=== PATIENT | female | born 1975 | race African-American/Black ===

== ENCOUNTER 2016-07-18 19:25 | Emergency (ER) | payer BC ==
--- NOTE | 2016-07-18 22:18 | ED NURSING NOTES ---
Clinical Report - Nurses [facility] [address] [place] [address] 07/18/2016 19:25 Patient: RIKY SCHMITT TRIAGE Triage time 19:57 Apr 2016. Acuity: LEVEL 2. Chief Complaint: ABDOMINAL PAIN, NAUSEA and VOMITING. Alert. MERVIN COMA SCORE: Mervin Coma Scale: 15- eyes open spontaneously (4); best verbal response- oriented x 4 (5); best motor response- obeys commands (6). --20:08 Jamir Moore R.N. 19:55 07/18/16. BP: 166/77. HR: 66. RR: 18. O2 saturation: 99% on room air. Temp: 98.5 F (oral). Pain level now: 8/10. Additional comments: abdominal pain. --20:08 Jamir Moore R.N. Weight: 68.4 kg stated. Height/Length: 65 inches Per Patient. BMI: 25.1. --20:03 Jamir Moore R.N. Medication/allergy information source: the patient. --20:08 Jamir Moore R.N. Allergies ASA. Codeine. EES. Ibuprofen. PCN. Sulfa Antibiotics. Vicodin. --02:15 Jc Reynolds R.N. History ( Abdominal Pain associated with N/V (12 times this this morning). She also states the, "the room is spinning."). This started today. Onset. (about 12 hours ago). She has had nausea, vomiting and abdominal pain. 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 PAST MEDICAL HX: Immunizations: status is unknown. Last normal menstrual period was 3 weeks ago. Denies current . SOCIAL HX: Light tobacco smoker (cigarette)- less than 1/2 a pack per day. No alcohol use or drug use. No recent travel. No infectious disease exposure. ABUSE ASSESSMENT: No report of abuse. FALL RISK ASSESSMENT: Fall risk assessment completed. No fall risk identified. NUTRITIONAL RISK ASSESSMENT: The nutritional risk assessment revealed no deficiencies. FUNCTIONAL ASSESSMENT: Functional assessment: no impairments noted. LEARNING NEEDS ASSESSMENT: The learning needs assessment revealed no barriers. SKIN INTEGRITY ASSESSMENT: Skin integrity risk assessment completed. No skin integrity risk identified. --20:08 Jamir Moore R.N. PROBLEMS: Vomiting. Murmur . SICKLE CELL TRAIT. Gastroparesis. Diabetes Mellitus Type 2. --20:04 Jamir Moore R.N. ADDITIONAL SURGERIES: Endoscopy. Knee Surgery. Tonsillectomy. --20:04 Jamir Moore R.N. Interventions ID band on patient. To room. --20:08 Jamir Moore R.N. PHYSICAL ASSESSMENT Ambulatory to room. GENERAL / NEURO / PSYCH: Alert. Oriented X 4. Appears in pain. HEENT: Mucous membranes are pink. RESPIRATORY: Respirations not labored. CVS: Cardiac rhythm: (RRR). GI / : Abdomen soft. Bowel sounds within normal limits. SKIN: Skin is warm and dry. --20:11 Jamir Moore R.N. NURSING PROGRESS NOTES 20:00 07/18/2016 Site #1 started via IV in the left antecubital space with an 20g angiocath, with aseptic technique and good blood return; one attempt. Blood drawn: rainbow set. Saline lock flushed with 10 mL saline. --20:10 Jamir Moore R.N. Reassurance given. Patient identifiers checked. Call light placed in reach. Side rails up x 1. Bed placed in lowest position. Brakes of bed on. Patient ready for evaluation- chart flagged and ED physician notified. --20:12 Jamir Moore R.N. 19:55. Patient ID band checked for patient name, birthdate and medical record number: patient confirmed. Instructions provided to collect clean catch urine and patient verbalized understanding. Clean catch urine collected with return of yellow-colored clear urine; odor is normal; sample sent to lab for urinalysis and culture. Specimen labeled in the presence of the patient. --20:13 Jamir Moore R.N. 20:15 07/18/2016 Started bag #1 1000 mL IV Fluids IV NS (Saline); at 1000 mL/hr over 60 minute(s) via site #1 via IV pump. Allergies verified and confirmed 5 rights. IV patency established. IV site checked: no pain, redness, or swelling. IV flushed thoroughly pre- and post-medication administration. --20:21 Jamir Moore R.N. 20:17 07/18/2016 Zofran (Ondansetron HCl) IVP 4 mg given over 2 minute(s) via site #1. Allergies verified and confirmed 5 rights. IV patency established. IV site checked: no pain, redness, or swelling. IV flushed thoroughly pre- and post-medication administration. --20:23 Jamir Oneal R.N. 20:19 07/18/2016 Toradol IVP 30 mg given over 2 minute(s) via site #1. Allergies verified and confirmed 5 rights. IV patency established. IV site checked: no pain, redness, or swelling. IV flushed thoroughly pre- and post-medication administration. --20:24 Jamir Oneal R.N. 20:21 07/18/2016 Ativan (LORazepam) IVP 2 mg given over 2 minute(s) via site #1. Allergies verified, confirmed 5 rights and sedative warning given to the patient and patient's sterile supervisor. IV patency established. IV site checked: no pain, redness, or swelling. IV flushed thoroughly pre- and post-medication administration. --20:24 Jamir Oneal R.N. 20:22. Pulse oximeter placed on patient. --20:24 Jamir Oneal R.N. 21:16 07/18/16. BP: 111/60. HR: 61. RR: 16. O2 saturation: 95% on room air. Pain level now: 0/10. Additional comments: sleeping. --21:17 Jamir Moore R.N. 21:18 07/18/2016 IV Fluids IV NS Discontinued: bag #1 infused. Total amount infused: 1000 mL. IV patency established. IV site checked: no pain, redness, or swelling. IV flushed thoroughly. --21:18 Jamir Moore R.N. 21:40 Pt resting quietly, sterile supervisor at bedside. --22:12 Ani Baker R.N. DISPOSITION / DISCHARGE 23:04 07/18/16. Departure time: 2303Jul 18 2016. Condition at departure: stable. The goals identified in the patient's plan of care were met. No learning barriers present. Discharge instructions provided and reviewed with the patient. Reviewed medication(s) side effects, precautions, dosing and course information. Prescription(s) given to the patient. Patient verbalized understanding. Written instructions provided in Yakut. ( Riky verbalizes understanding of all d/c instructions including need to f/u with PCP. She has no questions and voices no concerns at this time.). The patient was discharged by the physician. She was discharged home and accompanied by family. She left the Emergency Department ambulatory and via private vehicle. Family member driving. MERVIN COMA SCORE: [place] Coma Scale: 15- eyes open spontaneously (4); best verbal response- oriented x 4 (5); best motor response- obeys commands (6). --02:15 Jc Reynolds R.N. 02:13 07/19/16. BP: 101/52 (regular adult cuff) taken on the right arm, via an automated monitor, while lying. HR: 74 (normal rate). RR: 16 (regular, unlabored and normal). O2 saturation: 95% on room air. Temp: 98.9 F (oral). Pain level now: 09/12. --02:15 Jc Reynolds R.N. Locked/Released at 07/19/2016 2:15 by Jc Reynolds R.N.
--- NOTE | 2016-07-18 22:18 | ED ORDER SUMMARY ---
..... Patient: RIKY SCHMITT OrderSheet [facility] VisitID: [id number] [address] [place] [address] 40y, F Registration Date/Time: 07/18/2016 ORDER SHEET Weight: 68.4 kg (stated) Allergies: ASA, Codeine, EES, Ibuprofen, PCN, Sulfa Antibiotics, Vicodin GENERAL ORDERS: CBC w Diff Urgent (20:07/18/2016 HBivens A.R.N.P.) (20:13 JRomanelli R.N.) CMP Urgent (20:07/18/2016 HBivens A.R.N.P.) (20:13 JRomanelli R.N.) UA-Culture if indicated Urgent (20:07/18/2016 HBivens A.R.N.P.) (20:13 JRomanelli R.N.) Amylase Urgent (20:07/18/2016 HBivens A.R.N.P.) (20:13 JRomanelli R.N.) Lipase Urgent (20:07/18/2016 HBivens A.R.N.P.) (20:13 JRomanelli R.N.) MEDICATION ORDERS: IV FLUIDS: IV Saline Lock (20:09 07/18/2016 JRomanelli R.N. verbal order read back to HBivens A.R.N.P.) (20:10 JRomanelli R.N.) IV NS : initial bolus 1000 mL (1000 mL/hr), then none - (NOW) (20:11 07/18/2016 HBivens A.R.N.P.) (Ack 20:15 JQuivey R.N.) (20:21 JRomanelli R.N.) Toradol IV 30 mg (NOW) (20:07/18/2016 HBivens A.R.N.P.) (Ack 20:15 JQuivey R.N.) (20:24 JQuivey R.N.) Zofran IV 4 mg (NOW) (20:07/18/2016 HBivens A.R.N.P.) (Ack 20:15 JQuivey R.N.) (20:23 JQuivey R.N.) Ativan IV 2 mg (HIGH ALERT MEDICATION, NOW) (20:11 07/18/2016 HBivens A.R.N.P.) (Ack 20:15 JQuivey R.N.) (20:24 JQuivey R.N.) ORDER SHEET NOTES: [Electronically signed by Clare HardingR.N.PRaulito (23:28 07/18/2016)] [Electronically signed by Jc Reynolds R.N. (02:15 07/19/2016)] [Electronically locked/signed by Jc Reynolds R.N. (02:07/19/2016)]
--- NOTE | 2016-07-18 22:18 | ED ORDER SUMMARY ---
..... Patient: RIKY SCHMITT OrderSheet [facility] VisitID: [id number] [address] [place] [address] 40y, F Registration Date/Time: 07/18/2016 ORDER SHEET Weight: 68.4 kg (stated) Allergies: ASA, Codeine, EES, Ibuprofen, PCN, Sulfa Antibiotics, Vicodin GENERAL ORDERS: CBC w Diff Urgent (20:07/18/2016 HBivens A.R.N.P.) (20:13 JRomanelli R.N.) CMP Urgent (20:07/18/2016 HBivens A.R.N.P.) (20:13 JRomanelli R.N.) UA-Culture if indicated Urgent (20:07/18/2016 HBivens A.R.N.P.) (20:13 JRomanelli R.N.) Amylase Urgent (20:07/18/2016 HBivens A.R.N.P.) (20:13 JRomanelli R.N.) Lipase Urgent (20:07/18/2016 HBivens A.R.N.P.) (20:13 JRomanelli R.N.) MEDICATION ORDERS: IV FLUIDS: IV Saline Lock (20:09 07/18/2016 JRomanelli R.N. verbal order read back to HBivens A.R.N.P.) (20:10 JRomanelli R.N.) IV NS : initial bolus 1000 mL (1000 mL/hr), then none - (NOW) (20:11 07/18/2016 HBivens A.R.N.P.) (Ack 20:15 JQuivey R.N.) (20:21 JRomanelli R.N.) Toradol IV 30 mg (NOW) (20:07/18/2016 HBivens A.R.N.P.) (Ack 20:15 JQuivey R.N.) (20:24 JQuivey R.N.) Zofran IV 4 mg (NOW) (20:07/18/2016 HBivens A.R.N.P.) (Ack 20:15 JQuivey R.N.) (20:23 JQuivey R.N.) Ativan IV 2 mg (HIGH ALERT MEDICATION, NOW) (20:11 07/18/2016 HBivens A.R.N.P.) (Ack 20:15 JQuivey R.N.) (20:24 JQuivey R.N.) ORDER SHEET NOTES: [Electronically signed by Clare HardingR.N.PRaulito (23:28 07/18/2016)] [Electronically signed by Jc Reynolds R.N. (02:15 07/19/2016)] [Electronically locked/signed by Jc Reynolds R.N. (02:07/19/2016)]
--- NOTE | 2016-07-18 22:18 | ED NURSING NOTES ---
Clinical Report - Nurses [facility] [address] [place] [address] 07/18/2016 19:25 Patient: RIKY SCHMITT TRIAGE Triage time 19:57 Apr 2016. Acuity: LEVEL 2. Chief Complaint: ABDOMINAL PAIN, NAUSEA and VOMITING. Alert. MERVIN COMA SCORE: Mervin Coma Scale: 15- eyes open spontaneously (4); best verbal response- oriented x 4 (5); best motor response- obeys commands (6). --20:08 Jamir Moore R.N. 19:55 07/18/16. BP: 166/77. HR: 66. RR: 18. O2 saturation: 99% on room air. Temp: 98.5 F (oral). Pain level now: 8/10. Additional comments: abdominal pain. --20:08 Jamir Moore R.N. Weight: 68.4 kg stated. Height/Length: 65 inches Per Patient. BMI: 25.1. --20:03 Jamir Moore R.N. Medication/allergy information source: the patient. --20:08 Jamir Moore R.N. Allergies ASA. Codeine. EES. Ibuprofen. PCN. Sulfa Antibiotics. Vicodin. --02:15 Jc Reynolds R.N. History ( Abdominal Pain associated with N/V (12 times this this morning). She also states the, "the room is spinning."). This started today. Onset. (about 12 hours ago). She has had nausea, vomiting and abdominal pain. 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 PAST MEDICAL HX: Immunizations: status is unknown. Last normal menstrual period was 3 weeks ago. Denies current . SOCIAL HX: Light tobacco smoker (cigarette)- less than 1/2 a pack per day. No alcohol use or drug use. No recent travel. No infectious disease exposure. ABUSE ASSESSMENT: No report of abuse. FALL RISK ASSESSMENT: Fall risk assessment completed. No fall risk identified. NUTRITIONAL RISK ASSESSMENT: The nutritional risk assessment revealed no deficiencies. FUNCTIONAL ASSESSMENT: Functional assessment: no impairments noted. LEARNING NEEDS ASSESSMENT: The learning needs assessment revealed no barriers. SKIN INTEGRITY ASSESSMENT: Skin integrity risk assessment completed. No skin integrity risk identified. --20:08 Jamir Moore R.N. PROBLEMS: Vomiting. Murmur . SICKLE CELL TRAIT. Gastroparesis. Diabetes Mellitus Type 2. --20:04 Jamir Moore R.N. ADDITIONAL SURGERIES: Endoscopy. Knee Surgery. Tonsillectomy. --20:04 Jamir Moore R.N. Interventions ID band on patient. To room. --20:08 Jamir Moore R.N. PHYSICAL ASSESSMENT Ambulatory to room. GENERAL / NEURO / PSYCH: Alert. Oriented X 4. Appears in pain. HEENT: Mucous membranes are pink. RESPIRATORY: Respirations not labored. CVS: Cardiac rhythm: (RRR). GI / : Abdomen soft. Bowel sounds within normal limits. SKIN: Skin is warm and dry. --20:11 Jamir Moore R.N. NURSING PROGRESS NOTES 20:00 07/18/2016 Site #1 started via IV in the left antecubital space with an 20g angiocath, with aseptic technique and good blood return; one attempt. Blood drawn: rainbow set. Saline lock flushed with 10 mL saline. --20:10 Jamir Moore R.N. Reassurance given. Patient identifiers checked. Call light placed in reach. Side rails up x 1. Bed placed in lowest position. Brakes of bed on. Patient ready for evaluation- chart flagged and ED physician notified. --20:12 Jamir Moore R.N. 19:55. Patient ID band checked for patient name, birthdate and medical record number: patient confirmed. Instructions provided to collect clean catch urine and patient verbalized understanding. Clean catch urine collected with return of yellow-colored clear urine; odor is normal; sample sent to lab for urinalysis and culture. Specimen labeled in the presence of the patient. --20:13 Jamir Moore R.N. 20:15 07/18/2016 Started bag #1 1000 mL IV Fluids IV NS (Saline); at 1000 mL/hr over 60 minute(s) via site #1 via IV pump. Allergies verified and confirmed 5 rights. IV patency established. IV site checked: no pain, redness, or swelling. IV flushed thoroughly pre- and post-medication administration. --20:21 Jamir Moore R.N. 20:17 07/18/2016 Zofran (Ondansetron HCl) IVP 4 mg given over 2 minute(s) via site #1. Allergies verified and confirmed 5 rights. IV patency established. IV site checked: no pain, redness, or swelling. IV flushed thoroughly pre- and post-medication administration. --20:23 Jamir Oneal R.N. 20:19 07/18/2016 Toradol IVP 30 mg given over 2 minute(s) via site #1. Allergies verified and confirmed 5 rights. IV patency established. IV site checked: no pain, redness, or swelling. IV flushed thoroughly pre- and post-medication administration. --20:24 Jamir Oneal R.N. 20:21 07/18/2016 Ativan (LORazepam) IVP 2 mg given over 2 minute(s) via site #1. Allergies verified, confirmed 5 rights and sedative warning given to the patient and patient's carpenter packing. IV patency established. IV site checked: no pain, redness, or swelling. IV flushed thoroughly pre- and post-medication administration. --20:24 Jamir Oneal R.N. 20:22. Pulse oximeter placed on patient. --20:24 Jamir Oneal R.N. 21:16 07/18/16. BP: 111/60. HR: 61. RR: 16. O2 saturation: 95% on room air. Pain level now: 0/10. Additional comments: sleeping. --21:17 Jamir Moore R.N. 21:18 07/18/2016 IV Fluids IV NS Discontinued: bag #1 infused. Total amount infused: 1000 mL. IV patency established. IV site checked: no pain, redness, or swelling. IV flushed thoroughly. --21:18 Jamir Moore R.N. 21:40 Pt resting quietly, carpenter packing at bedside. --22:12 Ani Baker R.N. DISPOSITION / DISCHARGE 23:04 07/18/16. Departure time: 2303Jul 18 2016. Condition at departure: stable. The goals identified in the patient's plan of care were met. No learning barriers present. Discharge instructions provided and reviewed with the patient. Reviewed medication(s) side effects, precautions, dosing and course information. Prescription(s) given to the patient. Patient verbalized understanding. Written instructions provided in Thai. ( Riky verbalizes understanding of all d/c instructions including need to f/u with PCP. She has no questions and voices no concerns at this time.). The patient was discharged by the physician. She was discharged home and accompanied by family. She left the Emergency Department ambulatory and via private vehicle. Family member driving. MERVIN COMA SCORE: [place] Coma Scale: 15- eyes open spontaneously (4); best verbal response- oriented x 4 (5); best motor response- obeys commands (6). --02:15 Jc Reynolds R.N. 02:13 07/19/16. BP: 101/52 (regular adult cuff) taken on the right arm, via an automated monitor, while lying. HR: 74 (normal rate). RR: 16 (regular, unlabored and normal). O2 saturation: 95% on room air. Temp: 98.9 F (oral). Pain level now: 09/12. --02:15 Jc Reynolds R.N. Locked/Released at 07/19/2016 2:15 by Jc Reynolds R.N.
--- NOTE | 2016-07-18 22:18 | ED CLINICAL REPORT ---
Clinical Report - Physicians/Mid Levels [facility] [address], [place] [address] 07/18/2016 19:25 Patient: RIKY SCHMITT Time Seen: 19:48; initial patient contact, initial documentation, patient care assumed. Arrived- By private vehicle. Historian- patient. HISTORY OF PRESENT ILLNESS Chief Complaint: ABDOMINAL PAIN. At its maximum, severity described as moderate. When seen in the E.D., severity described as moderate. Modifying factors. Not worsened by anything. Not relieved by anything. It is described as "pain" and diffuse. No radiation. This started today and is still present. It was abrupt in onset. The patient has had nausea. No loss of appetite or diarrhea. She has had vomiting. The vomiting has occurred numerous times and has been bilious. No feculent emesis, blood-tinged emesis, coffee-grounds emesis, frankly bloody emesis or unusually dark emesis. No additional abdominal pain. No recent travel. Similar symptoms previously: Chronically, as bad. ( feel exactly the same as past flare ups). Recent medical care: Not recently seen/assessed. REVIEW OF SYSTEMS Last normal menstrual period- about 3 weeks ago. No constipation, black stools, hematemesis, difficulty with urination or pain with urination. No urinary frequency, bloody stools, fever, chest pain or difficulty breathing. Denies current . All systems otherwise negative, except as recorded above. PAST HISTORY See nurses notes. PROBLEMS: Vomiting. Murmur . SICKLE CELL TRAIT. Gastroparesis. Diabetes Mellitus Type 2. --20:04 Jamir Moore R.N. ADDITIONAL SURGERIES: Endoscopy. Knee Surgery. Tonsillectomy. --20:04 Jamir Moore R.N. SOCIAL HISTORY Light tobacco smoker. No alcohol use or drug use. No recent travel. Is a local resident. She lives with spouse. FAMILY HISTORY Negative. ADDITIONAL NOTES The nursing notes have been reviewed with agreement regarding the chief complaint, HPI, ROS, PMH and patient medications and allergies. PHYSICAL EXAM Vital Signs: 07/18/2016 19:55 BP: 166/77. HR: 66. RR: 18. O2 saturation: 99%. Temp: 98.5 F. Pain level now: 8/10. Have been reviewed as normal and appear to be correct. Appearance: Alert. Oriented X3. No acute distress. Anxious. Eyes: Pupils equal, round and reactive to light. Eyes normal inspection. Neck: Normal inspection. Neck supple. CVS: Normal heart rate and rhythm. Heart sounds normal. Pulses normal. Respiratory: No respiratory distress. Breath sounds normal. Chest nontender. Abdomen: Soft. Mild tenderness diffusely. No guarding, rebound tenderness or Loja's, obturator or psoas sign present. Bowel sounds normal. No organomegaly. No mass. Tenderness present. Back: Normal inspection. Skin: Skin warm and dry. Normal skin color. No rash. Normal skin turgor. Extremities: Extremities exhibit normal ROM. No lower extremity edema. Neuro: Oriented X 3. No motor deficit. No sensory deficit. LABS, X-RAYS, AND EKG Laboratory Tests: UA-Culture if indicated: (TARYN: 07/18/2016 19:50) ( [facility] 07/18/2016 21:26) Final results Test Result Flag Units (Reference) URINE COLOR YELLOW URINE APPEARANCE CLEAR URINE GLUCOSE NEGATIVE (NEGATIVE) URINE BILIRUBIN ICTOTEST NEGATIVE (NEGATIVE) URINE KETONE 3+ (NEGATIVE) URINE SPECIFIC GRAVITY 1.020 (1.010-1.030) URINE PH 7.5 (5.0-8.0) URINE PROTEIN NEGATIVE (NEGATIVE) URINE UROBILINOGEN 0.2 EU/dL (0.2-1.0) URINE NITRITE NEGATIVE (NEGATIVE) URINE BLOOD NEGATIVE (NEGATIVE) URINE LEUK ESTERASE NEGATIVE (NEGATIVE) URINE RBC NONE SEEN rbc/hpf (0-1) URINE WBC RARE wbc/hpf (0-1) URINE EPITHELIAL CELLS 0-1 EPI/hpf (0-5) URINE BACTERIA TRACE (<1+) (NONE SEEN) URINE COMMENT CULT NOT INDICATED 1+ AMORPHOUSURINE CULTURES ARE SET-UP BASED ON THE FOLLOWING CRITERIA:POSITIVE NITRITEPOSITIVE LEUKOCYTE ESTERASEGREATER THAN 10 WHITE BLOOD CELLSMODERATE (2+) OR GREATER BACTERIA CBC w Diff: (TARYN: 07/18/2016 20:05) ( [facility] 07/18/2016 20:45) Final results Test Result Flag Units (Reference) WHITE BLOOD COUNT 9.1 K/uL (4.5-11.5) RED BLOOD COUNT 4.83 M/uL (4.00-5.20) HEMOGLOBIN 12.7 gm/dL (12.0-16.0) HEMATOCRIT 39.1 % (36.0-46.0) MEAN CELL VOLUME 81 fL (80-100) MEAN CORPUSCULAR HGB 26 pg (26-34) MEAN CORPUSCULAR HGB CONC 33 g/dL (31-37) RED CELL DISTRIBUTION WIDTH 18.1 H % (11.6-14.8) PLATELET COUNT 355 K/uL (150-400) NEUTROPHIL % 87.6 H % (50-75) LYMPH % 10.4 L % (25-40) MONO % 1.9 L % (3-14) EOSINOPHIL % 0 % (0-4) BASOPHIL % 0.1 % (0-2) CMP: (TARYN: 07/18/2016 20:05) ( [facility] 07/18/2016 21:43) Final results Test Result Flag Units (Reference) GLUCOSE 140 H mg/dL (70-110) BUN 6 L mg/dL (7-18) CREATININE 0.7 mg/dL (0.6-1.3) Estimated GFR >60 mL/min Estimated GFR- >60 mL/min Note: Persistent reduction over 3 months in eGFR<60 mL/min/1.73 m2 defines CKD. Patients with eGFR values>=60 mL/min/1.73 m2 may also have CKD if evidence ofpersistent proteinuria. Additional information may be foundat www.kidney.org. SODIUM 141 mmol/L (136-145) POTASSIUM 3.7 mmol/L (3.5-5.1) CHLORIDE 106 mmol/L (98-107) CARBON DIOXIDE 24 mmol/L (21-32) CALCIUM 8.4 L mg/dL (8.5-10.1) TOTAL PROTEIN 7.4 g/dL (6.4-8.2) ALBUMIN 3.5 g/dL (3.3-5.0) BILIRUBIN, TOTAL 0.3 mg/dL (0.0-1.0) ALKALINE PHOSPHATASE 55 U/L (46-116) AST (SGOT) 10 L U/L (15-37) ALT (SGPT) 18 U/L (12-78) LIPASE 41 L U/L (73-393) AMYLASE 28 U/L (25-115) . PROGRESS AND PROCEDURES Course of Care: 20:06 07/18/16. pt has kate with recommendations to refer pt back to pcp for chronic conditions, and limit imaging such as ct, #7 er visits, see report for full details 2212. pt asleep resting quietly, nad, resp even and unlabored, spoke with spouse re dc plan. 07/18/2016 21:16 BP: 111/60. HR: 61. RR: 16. O2 saturation: 95%. Pain level now: 0/10. Vital Signs: have been reviewed as normal and appear to be correct. Patient and spouse counseled in person regarding the patient's stable condition, test results and diagnosis. 22:12. Differential Diagnosis: I considered gastritis, peptic ulcer disease, ischemia, gastroesophageal reflux disease, gastroparesis, Crohn's disease, ulcerative colitis, small bowel obstruction, gastric outlet obstruction, colonic obstruction, colon cancer, gastroenteritis, cholecystitis, pancreatitis, viral syndrome, enterocolitis, urinary tract infection, hepatitis, sepsis, drugs and as a possible cause of vomiting in this patient. This is a partial list of diagnoses considered. Above considerations are based on history, physical exam, reassessment and laboratory data. Differential diagnosis was discussed with patient. Disposition: Discharged home in good and improved condition (22:17). Condition: good and stable. CLINICAL IMPRESSION Intractable and bilious vomiting with nausea and dehydration. No volume depletion. INSTRUCTIONS Take clear liquids only (frequent sips) for the next 24 hours until better. May continue medications with sips only. Advance diet as tolerated. Warnings: GENERAL WARNINGS: Return or contact your physician immediately if your condition worsens or changes unexpectedly, if not improving as expected, or if other problems arise. SPECIFICALLY, return if you develop pain in the abdomen, fever, the inability to keep fluids down, blood in vomitus, blood in diarrhea, fainting or lightheadedness. Prescription Medications: Zofran 4 mg: Take 1 orally every six hours as needed for nausea/vomiting. Dispense ten (10). No refills. Substitution is permissible. Pepcid 20 mg tablets: Take 1 orally every 12 hours. Dispense thirty (30). No refills. Substitution is permissible. Follow-up: Follow up with your doctor in two days even if well. Call for an appointment. Summary of care provided to patient and family. Understanding of the discharge instructions verbalized by patient. (Electronically signed by Clare Harding A.R.N.P. 07/18/2016 23:28)
--- NOTE | 2016-07-19 02:16 | ED MED RECONCILIATION SUMMARY ---
Patient: RIKY SCHMITT Medication Reconciliation Report Formerly [facility] VisitID: [id number] [place] [address] 40y, F Registration Date/Time: 07/18/2016 Weight: 68.4 kg Height/Length: 65 in. BMI: 25.1 ALLERGIES: ASA, Codeine, EES, Ibuprofen, PCN, Sulfa Antibiotics, Vicodin The patient's Home Medications are listed below: Not obtained. The source(s) of the original Home Medication information: patient The following Medications were given to the patient in the Emergency Department: IV NS IV Fluids bolus 0, then 1000 mL/hr, administered: 07/18/2016 8:15:00 PM Zofran [IVP] IVP 4 mg, administered: 07/18/2016 8:17:00 PM Toradol [IVP] IVP 30 mg, administered: 07/18/2016 8:19:00 PM Ativan [IVP] IVP 2 mg, administered: 07/18/2016 8:21:00 PM The following Medications were prescribed to the patient: Zofran 4 mg: Take 1 orally every six hours as needed for nausea/vomiting. Dispense ten (10). No refills. Substitution is permissible. -- Clare Harding, A.R.N.P. Pepcid 20 mg tablets: Take 1 orally every 12 hours. Dispense thirty (30). No refills. Substitution is permissible. -- Clare Harding A.R.N.P.
--- NOTE | 2016-07-19 02:16 | ED DISCHARGE INSTRUCTIONS ---
Patient: RIKY SCHMITT General Instructions [facility] VisitID: [id number] [place] [address] 40y, F Registration Date/Time: 07/18/2016 Intractable and bilious vomiting with nausea and dehydration. No volume depletion. INSTRUCTIONS Take clear liquids only (frequent sips) for the next 24 hours until better. May continue medications with sips only. Advance diet as tolerated. Warnings: GENERAL WARNINGS: Return or contact your physician immediately if your condition worsens or changes unexpectedly, if not improving as expected, or if other problems arise. SPECIFICALLY, return if you develop pain in the abdomen, fever, the inability to keep fluids down, blood in vomitus, blood in diarrhea, fainting or lightheadedness. Prescription Medications: Zofran 4 mg: Take 1 orally every six hours as needed for nausea/vomiting. Dispense ten (10). No refills. Substitution is permissible. Pepcid 20 mg tablets: Take 1 orally every 12 hours. Dispense thirty (30). No refills. Substitution is permissible. Follow-up: Follow up with your doctor in two days even if well. Call for an appointment. Summary of care provided to patient and family. Understanding of the discharge instructions verbalized by patient. ADDITIONAL INFORMATION Vomiting [6Yr-Adult] Vomiting is a common symptom that may be due to different causes. These include gastroenteritis ("stomach flu"), food poisoning and gastritis. There are other more serious causes of vomiting which may be hard to diagnose early in the illness. Therefore, it is important to watch for the warning signs listed below. The main danger from repeated vomiting is dehydration. This is due to excess loss of water and minerals from the body. When this occurs, body fluids must be replaced. Home Care: If symptoms are severe, rest at home for the next 24 hours. You may use acetaminophen (Tylenol) or ibuprofen (Motrin, Advil) to control fever, unless another medicine was prescribed. [NOTE : If you have chronic liver or kidney disease or ever had a stomach ulcer or GI bleeding, talk with your doctor before using these medicines.] (Aspirin should never be used in anyone under 18 years of age who is ill with a fever. It may cause severe liver damage.) Avoid tobacco and alcohol use, which may worsen your symptoms. If medicines for vomiting were prescribed, take as directed. Once vomiting stops, then follow these guidelines: During The First 12-24 Hours follow the diet below: FRUIT JUICES: Apple, grape juice, clear fruit drinks, and electrolyte replacement drinks. BEVERAGES: Soft drinks without caffeine; mineral water (plain or flavored), decaffeinated tea and coffee. SOUPS: Clear broth, consomm and bouillon DESSERTS: Plain gelatin, popsicles and fruit juice bars. As you feel better, you may add 6-8 ounces of yogurt per day. During The Next 24 Hours you may add the following to the above: Hot cereal, plain toast, bread, rolls, crackers Plain noodles, rice, mashed potatoes, chicken noodle or rice soup Unsweetened canned fruit (avoid pineapple), bananas Limit caffeine and chocolate. No spices or seasonings except salt. During The Next 24 Hours Gradually resume a normal diet, as you feel better and your symptoms lessen. Follow Up with your doctor as advised if you are not improving over the next 2-3 days. Get Prompt Medical Attention if any of the following occur: Constant right-sided lower abdominal pain or increasing general abdominal pain Continued vomiting (unable to keep liquids down) for 24 hours Frequent diarrhea (more than 5 times a day); blood (red or black color) or mucus in diarrhea Reduced urine output or extreme thirst Weakness, dizziness or fainting Unusually drowsy or confused Fever of 100.4F (38C) oral or higher, not better with fever medication Yellow color of the eyes or skin Clear Liquid Diet Clear liquids are any liquid that you can see through as well as those that are very easy to digest. This is used while the body is recovering from irritation or infection of the stomach or intestinal tract. It may also be used before special procedures or surgery. This diet is to be used no more than three days. You may include the following items. Adults Adults should drink a total of 23 quarts of liquid per day. It may be easier to drink small frequent servings rather than a few large ones. Liquids can include: Fruit juices.Strained orange juice or lemonade (no pulp), apple, grape and cranberry juice, clear fruit drinks, sports drinks Beverages.Sport drinks, sodas, mineral water (plain or flavored), tea, black coffee, liquid gelatin (add twice the recommended amount of water) Soups.Clear broth, consomm, bouillon Desserts.Plain gelatin, popsicles, fruit juice bars Children Over 2 years old The following liquids are acceptable for children over age 2: Fruit juices.Strained orange juice or lemonade (no pulp), apple, grape and cranberry juice, clear fruit drinks Beverages. Sports drinks, sodas, mineral water (plain or flavored), tea, liquid gelatin (add twice the recommended amount of water) Soups. Clear broth, consomm, bouillon Desserts. Plain gelatin, popsicles, fruit juice bars Children under 2 years old Oral rehydration fluids such are available at drug stores and most grocery stores without a prescription. Ondansetron Oral disintegrating tablet What is this medicine? ONDANSETRON (on SHELIA se romain) is used to treat nausea and vomiting caused by chemotherapy. It is also used to prevent or treat nausea and vomiting after surgery. How should I use this medicine? These tablets are made to dissolve in the mouth. Do not try to push the tablet through the foil backing. With dry hands, peel away the foil backing and gently remove the tablet. Place the tablet in the mouth and allow it to dissolve, then swallow. While you may take these tablets with water, it is not necessary to do so. Talk to your senior construction manager regarding the use of this medicine in children. Special care may be needed. What side effects may I notice from receiving this medicine? Side effects that you should report to your doctor or health career center director as soon as possible: allergic reactions like skin rash, itching or hives, swelling of the face, lips, or tongue breathing problems dizziness fast or irregular heartbeat feeling faint or lightheaded, falls fever and chills swelling of the hands and feet tightness in the chest Side effects that usually do not require medical attention (report to your doctor or health career center director if they continue or are bothersome): constipation or diarrhea headache What may interact with this medicine? Do not take this medicine with any of the following medications: -apomorphine -cisapride -dofetilide -dronedarone -pimozide -thioridazine -ziprasidone This medicine may also interact with the following medications: -carbamazepine -phenytoin -rifampicin -tramadol -other medicines that prolong the QT interval (cause an abnormal heart rhythm) What if I miss a dose? If you miss a dose, take it as soon as you can. If it is almost time for your next dose, take only that dose. Do not take double or extra doses. Where should I keep my medicine? Keep out of the reach of children. Store between 2 and 30 degrees C (36 and 86 degrees F). Throw away any unused medicine after the expiration date. What should I tell my health care provider before I take this medicine? They need to know if you have any of these conditions: heart disease history of irregular heartbeat liver disease low levels of magnesium or potassium in the blood an unusual or allergic reaction to ondansetron, granisetron, other medicines, foods, dyes, or preservatives or trying to get breast-feeding What should I watch for while using this medicine? Check with your doctor or health career center director as soon as you can if you have any sign of an allergic reaction. Famotidine Oral tablet What is this medicine? FAMOTIDINE (fa JESÚS ti derrick) is a type of antihistamine that blocks the release of stomach acid. It is used to treat stomach or intestinal ulcers. It can also relieve heartburn from acid reflux. How should I use this medicine? Take this medicine by mouth with a glass of water. Follow the directions on the prescription label. If you only take this medicine once a day, take it at bedtime. Take your doses at regular intervals. Do not take your medicine more often than directed. Talk to your senior construction manager regarding the use of this medicine in children. Special care may be needed. What side effects may I notice from receiving this medicine? Side effects that you should report to your doctor or health career center director as soon as possible: agitation, nervousness confusion hallucinations skin rash, itching Side effects that usually do not require medical attention (report to your doctor or health career center director if they continue or are bothersome): constipation diarrhea dizziness headache What may interact with this medicine? delavirdine itraconazole ketoconazole What if I miss a dose? If you miss a dose, take it as soon as you can. If it is almost time for your next dose, take only that dose. Do not take double or extra doses. Where should I keep my medicine? Keep out of the reach of children. Store at room temperature between 15 and 30 degrees C (59 and 86 degrees F). Do not freeze. Throw away any unused medicine after the expiration date. What should I tell my health care provider before I take this medicine? They need to know if you have any of these conditions: kidney or liver disease trouble swallowing an unusual or allergic reaction to famotidine, other medicines, foods, dyes, or preservatives or trying to get breast-feeding What should I watch for while using this medicine? Tell your doctor or health career center director if your condition does not start to get better or if it gets worse. Finish the full course of tablets prescribed, even if you feel better. Do not take with aspirin, ibuprofen or other antiinflammatory medicines. These can make your condition worse. Do not smoke cigarettes or drink alcohol. These cause irritation in your stomach and can increase the time it will take for ulcers to heal. If you get black, tarry stools or vomit up what looks like coffee grounds, call your doctor or health career center director at once. You may have a bleeding ulcer. You have been given the following additional information: Vomiting (6Y-Adult) Diet, Clear Liquid Ondansetron Oral disintegrating tablet Famotidine Oral tablet (Electronically signed by Clare Harding A.R.N.P. 07/18/2016 23:28)
--- NOTE | 2016-07-19 02:16 | ED MAR SUMMARY ---
..... Medication Administration Record [facility] [address] [place] [address] Patient: RIKY SCHMITT Visit ID: [id number] 40y, F Weight: 68.4 kg Height/Length: 65 in BMI: 25.1 ALLERGIES: ASA, Codeine, EES, Ibuprofen, PCN, Sulfa Antibiotics, Vicodin Start 20:15 07/18/2016 Jamir Moore R.NRaulito, Stop 21:18 07/18/2016 Jamir Moore R.N. Medication Administered: IV NS (SALINE), Dose: IV Fluids over 60 minute(s), Rate: 1000 mL/hr, Dispensed: 1000 mL bag, Site: #1 left AC. Medication Ordered: IV NS : initial bolus 1000 mL (1000 mL/hr), then none - (NOW). Given 20:17 07/18/2016 Jamir Oneal R.N. Medication Administered: ZOFRAN [IVP] (ONDANSETRON HCL), Dose: 4 mg IVP over 2 minute(s), Site: #1 left AC. Medication Ordered: Zofran IV 4 mg (NOW). Given 20:19 07/18/2016 Jamir Oneal R.N. Medication Administered: TORADOL [IVP], Dose: 30 mg IVP over 2 minute(s), Site: #1 left AC. Medication Ordered: Toradol IV 30 mg (NOW). Given 20:21 07/18/2016 Jamir Oneal RRaulitoNRaulito Medication Administered: ATIVAN [IVP] (LORAZEPAM), Dose: 2 mg IVP over 2 minute(s), Site: #1 left AC. Medication Ordered: Ativan IV 2 mg (HIGH ALERT MEDICATION, NOW).
--- NOTE | 2016-07-19 02:16 | ED DISCHARGE INSTRUCTIONS ---
Patient: RIKY SCHMITT General Instructions [facility] VisitID: [id number] [place] [address] 40y, F Registration Date/Time: 07/18/2016 Intractable and bilious vomiting with nausea and dehydration. No volume depletion. INSTRUCTIONS Take clear liquids only (frequent sips) for the next 24 hours until better. May continue medications with sips only. Advance diet as tolerated. Warnings: GENERAL WARNINGS: Return or contact your physician immediately if your condition worsens or changes unexpectedly, if not improving as expected, or if other problems arise. SPECIFICALLY, return if you develop pain in the abdomen, fever, the inability to keep fluids down, blood in vomitus, blood in diarrhea, fainting or lightheadedness. Prescription Medications: Zofran 4 mg: Take 1 orally every six hours as needed for nausea/vomiting. Dispense ten (10). No refills. Substitution is permissible. Pepcid 20 mg tablets: Take 1 orally every 12 hours. Dispense thirty (30). No refills. Substitution is permissible. Follow-up: Follow up with your doctor in two days even if well. Call for an appointment. Summary of care provided to patient and family. Understanding of the discharge instructions verbalized by patient. ADDITIONAL INFORMATION Vomiting [6Yr-Adult] Vomiting is a common symptom that may be due to different causes. These include gastroenteritis ("stomach flu"), food poisoning and gastritis. There are other more serious causes of vomiting which may be hard to diagnose early in the illness. Therefore, it is important to watch for the warning signs listed below. The main danger from repeated vomiting is dehydration. This is due to excess loss of water and minerals from the body. When this occurs, body fluids must be replaced. Home Care: If symptoms are severe, rest at home for the next 24 hours. You may use acetaminophen (Tylenol) or ibuprofen (Motrin, Advil) to control fever, unless another medicine was prescribed. [NOTE : If you have chronic liver or kidney disease or ever had a stomach ulcer or GI bleeding, talk with your doctor before using these medicines.] (Aspirin should never be used in anyone under 18 years of age who is ill with a fever. It may cause severe liver damage.) Avoid tobacco and alcohol use, which may worsen your symptoms. If medicines for vomiting were prescribed, take as directed. Once vomiting stops, then follow these guidelines: During The First 12-24 Hours follow the diet below: FRUIT JUICES: Apple, grape juice, clear fruit drinks, and electrolyte replacement drinks. BEVERAGES: Soft drinks without caffeine; mineral water (plain or flavored), decaffeinated tea and coffee. SOUPS: Clear broth, consomm and bouillon DESSERTS: Plain gelatin, popsicles and fruit juice bars. As you feel better, you may add 6-8 ounces of yogurt per day. During The Next 24 Hours you may add the following to the above: Hot cereal, plain toast, bread, rolls, crackers Plain noodles, rice, mashed potatoes, chicken noodle or rice soup Unsweetened canned fruit (avoid pineapple), bananas Limit caffeine and chocolate. No spices or seasonings except salt. During The Next 24 Hours Gradually resume a normal diet, as you feel better and your symptoms lessen. Follow Up with your doctor as advised if you are not improving over the next 2-3 days. Get Prompt Medical Attention if any of the following occur: Constant right-sided lower abdominal pain or increasing general abdominal pain Continued vomiting (unable to keep liquids down) for 24 hours Frequent diarrhea (more than 5 times a day); blood (red or black color) or mucus in diarrhea Reduced urine output or extreme thirst Weakness, dizziness or fainting Unusually drowsy or confused Fever of 100.4F (38C) oral or higher, not better with fever medication Yellow color of the eyes or skin Clear Liquid Diet Clear liquids are any liquid that you can see through as well as those that are very easy to digest. This is used while the body is recovering from irritation or infection of the stomach or intestinal tract. It may also be used before special procedures or surgery. This diet is to be used no more than three days. You may include the following items. Adults Adults should drink a total of 23 quarts of liquid per day. It may be easier to drink small frequent servings rather than a few large ones. Liquids can include: Fruit juices.Strained orange juice or lemonade (no pulp), apple, grape and cranberry juice, clear fruit drinks, sports drinks Beverages.Sport drinks, sodas, mineral water (plain or flavored), tea, black coffee, liquid gelatin (add twice the recommended amount of water) Soups.Clear broth, consomm, bouillon Desserts.Plain gelatin, popsicles, fruit juice bars Children Over 2 years old The following liquids are acceptable for children over age 2: Fruit juices.Strained orange juice or lemonade (no pulp), apple, grape and cranberry juice, clear fruit drinks Beverages. Sports drinks, sodas, mineral water (plain or flavored), tea, liquid gelatin (add twice the recommended amount of water) Soups. Clear broth, consomm, bouillon Desserts. Plain gelatin, popsicles, fruit juice bars Children under 2 years old Oral rehydration fluids such are available at drug stores and most grocery stores without a prescription. Ondansetron Oral disintegrating tablet What is this medicine? ONDANSETRON (on SHELIA se romain) is used to treat nausea and vomiting caused by chemotherapy. It is also used to prevent or treat nausea and vomiting after surgery. How should I use this medicine? These tablets are made to dissolve in the mouth. Do not try to push the tablet through the foil backing. With dry hands, peel away the foil backing and gently remove the tablet. Place the tablet in the mouth and allow it to dissolve, then swallow. While you may take these tablets with water, it is not necessary to do so. Talk to your mail courier regarding the use of this medicine in children. Special care may be needed. What side effects may I notice from receiving this medicine? Side effects that you should report to your doctor or health managed care manager as soon as possible: allergic reactions like skin rash, itching or hives, swelling of the face, lips, or tongue breathing problems dizziness fast or irregular heartbeat feeling faint or lightheaded, falls fever and chills swelling of the hands and feet tightness in the chest Side effects that usually do not require medical attention (report to your doctor or health managed care manager if they continue or are bothersome): constipation or diarrhea headache What may interact with this medicine? Do not take this medicine with any of the following medications: -apomorphine -cisapride -dofetilide -dronedarone -pimozide -thioridazine -ziprasidone This medicine may also interact with the following medications: -carbamazepine -phenytoin -rifampicin -tramadol -other medicines that prolong the QT interval (cause an abnormal heart rhythm) What if I miss a dose? If you miss a dose, take it as soon as you can. If it is almost time for your next dose, take only that dose. Do not take double or extra doses. Where should I keep my medicine? Keep out of the reach of children. Store between 2 and 30 degrees C (36 and 86 degrees F). Throw away any unused medicine after the expiration date. What should I tell my health care provider before I take this medicine? They need to know if you have any of these conditions: heart disease history of irregular heartbeat liver disease low levels of magnesium or potassium in the blood an unusual or allergic reaction to ondansetron, granisetron, other medicines, foods, dyes, or preservatives or trying to get breast-feeding What should I watch for while using this medicine? Check with your doctor or health managed care manager as soon as you can if you have any sign of an allergic reaction. Famotidine Oral tablet What is this medicine? FAMOTIDINE (fa JESÚS ti derrick) is a type of antihistamine that blocks the release of stomach acid. It is used to treat stomach or intestinal ulcers. It can also relieve heartburn from acid reflux. How should I use this medicine? Take this medicine by mouth with a glass of water. Follow the directions on the prescription label. If you only take this medicine once a day, take it at bedtime. Take your doses at regular intervals. Do not take your medicine more often than directed. Talk to your mail courier regarding the use of this medicine in children. Special care may be needed. What side effects may I notice from receiving this medicine? Side effects that you should report to your doctor or health managed care manager as soon as possible: agitation, nervousness confusion hallucinations skin rash, itching Side effects that usually do not require medical attention (report to your doctor or health managed care manager if they continue or are bothersome): constipation diarrhea dizziness headache What may interact with this medicine? delavirdine itraconazole ketoconazole What if I miss a dose? If you miss a dose, take it as soon as you can. If it is almost time for your next dose, take only that dose. Do not take double or extra doses. Where should I keep my medicine? Keep out of the reach of children. Store at room temperature between 15 and 30 degrees C (59 and 86 degrees F). Do not freeze. Throw away any unused medicine after the expiration date. What should I tell my health care provider before I take this medicine? They need to know if you have any of these conditions: kidney or liver disease trouble swallowing an unusual or allergic reaction to famotidine, other medicines, foods, dyes, or preservatives or trying to get breast-feeding What should I watch for while using this medicine? Tell your doctor or health managed care manager if your condition does not start to get better or if it gets worse. Finish the full course of tablets prescribed, even if you feel better. Do not take with aspirin, ibuprofen or other antiinflammatory medicines. These can make your condition worse. Do not smoke cigarettes or drink alcohol. These cause irritation in your stomach and can increase the time it will take for ulcers to heal. If you get black, tarry stools or vomit up what looks like coffee grounds, call your doctor or health managed care manager at once. You may have a bleeding ulcer. You have been given the following additional information: Vomiting (6Y-Adult) Diet, Clear Liquid Ondansetron Oral disintegrating tablet Famotidine Oral tablet (Electronically signed by Clare Harding A.R.N.P. 07/18/2016 23:28)
--- NOTE | 2016-07-19 02:16 | ED MAR SUMMARY ---
..... Medication Administration Record [facility] [address] [place] [address] Patient: RIKY SCHMITT Visit ID: [id number] 40y, F Weight: 68.4 kg Height/Length: 65 in BMI: 25.1 ALLERGIES: ASA, Codeine, EES, Ibuprofen, PCN, Sulfa Antibiotics, Vicodin Start 20:15 07/18/2016 Jamir Moore R.NRaulito, Stop 21:18 07/18/2016 Jamir Moore R.N. Medication Administered: IV NS (SALINE), Dose: IV Fluids over 60 minute(s), Rate: 1000 mL/hr, Dispensed: 1000 mL bag, Site: #1 left AC. Medication Ordered: IV NS : initial bolus 1000 mL (1000 mL/hr), then none - (NOW). Given 20:17 07/18/2016 Jamir Oneal R.N. Medication Administered: ZOFRAN [IVP] (ONDANSETRON HCL), Dose: 4 mg IVP over 2 minute(s), Site: #1 left AC. Medication Ordered: Zofran IV 4 mg (NOW). Given 20:19 07/18/2016 Jamir Oneal R.N. Medication Administered: TORADOL [IVP], Dose: 30 mg IVP over 2 minute(s), Site: #1 left AC. Medication Ordered: Toradol IV 30 mg (NOW). Given 20:21 07/18/2016 Jamir Oneal RRaulitoNRaulito Medication Administered: ATIVAN [IVP] (LORAZEPAM), Dose: 2 mg IVP over 2 minute(s), Site: #1 left AC. Medication Ordered: Ativan IV 2 mg (HIGH ALERT MEDICATION, NOW).
--- NOTE | 2016-07-19 02:16 | ED MED RECONCILIATION SUMMARY ---
Patient: RIKY SCHMITT Medication Reconciliation Report [facility] VisitID: [id number] [place] [address] 40y, F Registration Date/Time: 07/18/2016 Weight: 68.4 kg Height/Length: 65 in. BMI: 25.1 ALLERGIES: ASA, Codeine, EES, Ibuprofen, PCN, Sulfa Antibiotics, Vicodin The patient's Home Medications are listed below: Not obtained. The source(s) of the original Home Medication information: patient The following Medications were given to the patient in the Emergency Department: IV NS IV Fluids bolus 0, then 1000 mL/hr, administered: 07/18/2016 8:15:00 PM Zofran [IVP] IVP 4 mg, administered: 07/18/2016 8:17:00 PM Toradol [IVP] IVP 30 mg, administered: 07/18/2016 8:19:00 PM Ativan [IVP] IVP 2 mg, administered: 07/18/2016 8:21:00 PM The following Medications were prescribed to the patient: Zofran 4 mg: Take 1 orally every six hours as needed for nausea/vomiting. Dispense ten (10). No refills. Substitution is permissible. -- Clare Harding, A.R.N.P. Pepcid 20 mg tablets: Take 1 orally every 12 hours. Dispense thirty (30). No refills. Substitution is permissible. -- Clare Harding A.R.N.P.
== END 2016-07-18 23:04 | disposition home or self-care (01) ==
LOC: ED SRH 19:25
DX: E86.0 Dehydration (principal); R11.14 Bilious vomiting; R11.0 Nausea; E11.9 Type 2 diabetes mellitus without complications; F17.210 Nicotine dependence, cigarettes, uncomplicated; Z88.0 Allergy status to penicillin; Z88.1 Allergy status to other antibiotic agents; Z88.2 Allergy status to sulfonamides; Z88.5 Allergy status to narcotic agent; Z88.8 Allergy status to other drugs, medicaments and biological substances
CPT/HCPCS: 90004; 90100; 92235; 92530; 95059

== ENCOUNTER 2016-07-20 12:09 | Emergency (ER) | payer BC ==
--- NOTE | 2016-07-20 14:24 | DIAGNOSTIC IMAGING REPORT ---
PROCEDURE: CT ABD/PELVIS WITH CONTRAST CLINICAL INDICATION: Mid abdominal pain and vomiting. TECHNIQUE: 125 ml. of Isovue 300 were injected intravenously and axial images were obtained of the entire abdomen and pelvis with sagittal and coronal reformations. COMPARISON: None. FINDINGS: The uterus, adnexa and bladder are normal. Small amount of free fluid the cul-de-sac. ABDOMEN: Minor bibasilar atelectasis. Heart size is normal. Liver, gallbladder, pancreas, spleen, adrenal glands and kidneys are normal. Mild atherosclerosis of the aorta. Fluid filled distended stomach. No evidence of gastritis. Fluid in the ascending colon. PELVIS: Normal appendix. 1.6 cm left ovarian cyst with small amount of free fluid the cul-de-sac. Uterus and bladder are normal. Bones are unremarkable. IMPRESSION: 1. Fluid filled distended stomach. This may represent a gastroparesis or gastroenteritis. 2. Fluid in the ascending colon suggestive of enterocolitis. 3. 1.6 cm left ovarian cyst with a small amount of free fluid the cul-de-sac. 4. Results discussed with Dr. Wells All CT scans at this facility use dose modulation, iterative reconstruction, and/or weight-based dosing when appropriate to reduce radiation dose to as low as reasonably achievable.
--- NOTE | 2016-07-20 15:07 | ED CLINICAL REPORT ---
Clinical Report - Physicians/Mid Levels [facility] [address] [place] [address] 07/20/2016 12:09 Patient: RIKY SCHMITT Time Seen: 1228; initial patient contact. Arrived- By private vehicle. Historian- patient. HISTORY OF PRESENT ILLNESS Chief Complaint: ABDOMINAL PAIN. At its maximum, severity described as severe. When seen in the E.D., severity described as severe. It is described as sharp and cramping. No radiation. This started today and is still present (no change). It was abrupt in onset and has been constant but is not gone now. The patient has had nausea. No loss of appetite, vomiting or diarrhea. No additional abdominal pain. No recent travel. Similar symptoms previously: Many times (hx of gastroparesis). Recent medical care: Not recently seen/assessed. REVIEW OF SYSTEMS No constipation, black stools, hematemesis, bloody stools or fever. No skin rash or chills. All systems otherwise negative, except as recorded above. PAST HISTORY See nurses notes. Medications: Vistaril Oral 50 mg 1-2 caps hs . Zofran 8 mg q 8 hrs . Abilify 5 mg hs . Albuterol Sulfate HFA Inhalation. Bentyl Oral 20 mg, 3x a day. Carafate Oral 1 gm, 4x a day. Prazosin HCl Oral 2 mg, 3x a day. Reglan 10mg QID. Sennna 86mg prn . Sertraline HCl Oral 100 mg, daily. Allergies: ASA. Codeine. EES. Ibuprofen. PCN. Sulfa Antibiotics. Vicodin. SOCIAL HISTORY Never smoker. No alcohol use or drug use. No recent travel. Is a local resident. ADDITIONAL NOTES The nursing notes have been reviewed. PHYSICAL EXAM Vital Signs: 07/20/2016 12:15 BP: 135/82. HR: 65. RR: 20. O2 saturation: 100%. Temp: 97.7 F. Pain level now: 10/10. Blood pressure normal. Oxygen saturation normal. Appearance: Alert. Oriented X3. Patient in moderate distress. (non-toxic. pleasant. cooperative.). Eyes: Pupils equal, round and reactive to light. Eyes normal inspection. ENT: Ears normal. Nose normal. Pharynx normal. Neck: Normal inspection. Neck supple. CVS: Normal heart rate and rhythm. Heart sounds normal. Pulses normal. Respiratory: No respiratory distress. Breath sounds normal. Chest nontender. No rales, rhonchi or wheezes. Abdomen: Soft and nontender. Bowel sounds normal. Skin: Skin warm and dry. Normal skin color. No rash. Normal skin turgor. Extremities: Extremities exhibit normal ROM. No lower extremity edema. Neuro: Oriented X 3. No motor deficit. No sensory deficit. LABS, X-RAYS, AND EKG Abdominal CT: PROCEDURE: CT ABD/PELVIS WITH CONTRAST CLINICAL INDICATION: Mid abdominal pain and vomiting. TECHNIQUE: 125 ml. of Isovue 300 were injected intravenously and axial images were obtained of the entire abdomen and pelvis with sagittal and coronal reformations. COMPARISON: None. FINDINGS: The uterus, adnexa and bladder are normal. Small amount of free fluid the cul-de-sac. ABDOMEN: Minor bibasilar atelectasis. Heart size is normal. Liver, gallbladder, pancreas, spleen, adrenal glands and kidneys are normal. Mild atherosclerosis of the aorta. Fluid filled distended stomach. No evidence of gastritis. Fluid in the ascending colon. PELVIS: Normal appendix. 1.6 cm left ovarian cyst with small amount of free fluid the cul-de-sac. Uterus and bladder are normal. Bones are unremarkable. IMPRESSION: 1. Fluid filled distended stomach. This may represent a gastroparesis or gastroenteritis. 2. Fluid in the ascending colon suggestive of enterocolitis. 3. 1.6 cm left ovarian cyst with a small amount of free fluid the cul-de-sac. Laboratory Tests: UA-Culture if indicated: (TARYN: 07/20/2016 13:15) ( MsgRcvd 07/20/2016 14:01) Final results Test Result Flag Units (Reference) URINE COLOR YELLOW URINE APPEARANCE CLEAR URINE GLUCOSE NEGATIVE (NEGATIVE) URINE BILIRUBIN ICTOTEST NEGATIVE (NEGATIVE) URINE KETONE 2+ (NEGATIVE) URINE SPECIFIC GRAVITY 1.025 (1.010-1.030) URINE PH 6.0 (5.0-8.0) URINE PROTEIN NEGATIVE (NEGATIVE) URINE UROBILINOGEN 0.2 EU/dL (0.2-1.0) URINE NITRITE NEGATIVE (NEGATIVE) URINE BLOOD NEGATIVE (NEGATIVE) URINE LEUK ESTERASE NEGATIVE (NEGATIVE) URINE RBC NONE SEEN rbc/hpf (0-1) URINE WBC 1-3 wbc/hpf (0-1) URINE EPITHELIAL CELLS 1-3 EPI/hpf (0-5) URINE BACTERIA MODERATE (2+ TO 3+) (NONE SEEN) URINE COMMENT CULTURE INDICATED 2+ MUCOUSURINE CULTURES ARE SET-UP BASED ON THE FOLLOWING CRITERIA:POSITIVE NITRITEPOSITIVE LEUKOCYTE ESTERASEGREATER THAN 10 WHITE BLOOD CELLSMODERATE (2+) OR GREATER BACTERIA CBC w Diff: (TARYN: 07/20/2016 12:30) ( MsgRcvd 07/20/2016 13:55) Final results Test Result Flag Units (Reference) WHITE BLOOD COUNT 6.2 K/uL (4.5-11.5) RED BLOOD COUNT 5.04 M/uL (4.00-5.20) HEMOGLOBIN 13.4 gm/dL (12.0-16.0) HEMATOCRIT 40.9 % (36.0-46.0) MEAN CELL VOLUME 81 fL (80-100) MEAN CORPUSCULAR HGB 27 pg (26-34) MEAN CORPUSCULAR HGB CONC 33 g/dL (31-37) RED CELL DISTRIBUTION WIDTH 18.2 H % (11.6-14.8) PLATELET COUNT 137 L K/uL (150-400) NEUTROPHIL % 62.5 % (50-75) LYMPH % 30.6 % (25-40) MONO % 5.6 % (3-14) EOSINOPHIL % 0.9 % (0-4) BASOPHIL % 0.4 % (0-2) CMP: (TARYN: 07/20/2016 12:30) ( MsgRcvd 07/20/2016 13:26) Final results Test Result Flag Units (Reference) GLUCOSE 122 H mg/dL (70-110) BUN 9 mg/dL (7-18) CREATININE 0.7 mg/dL (0.6-1.3) Estimated GFR >60 mL/min Estimated GFR- >60 mL/min Note: Persistent reduction over 3 months in eGFR<60 mL/min/1.73 m2 defines CKD. Patients with eGFR values>=60 mL/min/1.73 m2 may also have CKD if evidence ofpersistent proteinuria. Additional information may be foundat [email or web address]. SODIUM 140 mmol/L (136-145) POTASSIUM 3.7 mmol/L (3.5-5.1) CHLORIDE 104 mmol/L (98-107) CARBON DIOXIDE 22 mmol/L (21-32) CALCIUM 9.0 mg/dL (8.5-10.1) TOTAL PROTEIN 8.0 g/dL (6.4-8.2) ALBUMIN 3.8 g/dL (3.3-5.0) BILIRUBIN, TOTAL 0.6 mg/dL (0.0-1.0) ALKALINE PHOSPHATASE 59 U/L (46-116) AST (SGOT) 19 U/L (15-37) ALT (SGPT) 18 U/L (12-78) LIPASE 46 L U/L (73-393) BETA HCG, QUANTITATIVE <1 mIU/mL REFERENCE RANGE:Adult Males: <2 mIU/mLNon- Females: <6 mIU/mL Females:Approximate Approximate hCGGestational Age Range (mIU/mL) 0-1 week 0-501-2 weeks 40-3002-3 weeks 100-06163-9 weeks 500-67858-4 months 5,000-200,0002-3 months 10,000-100,0002nd trimester 3,000-50,0003rd trimester 1,000-50,000 Culture, Urine: (TARYN: 07/20/2016 13:15) ( MsgRcvd 07/22/2016 11:43) Final results Test Result Flag Units (Reference) CULTURE, URINE DATE: 07/22/16 NO GROWTH AT:: NO GROWTH AT 2 DAYS PRELIM REPORT: FINAL REPORT . PROGRESS AND PROCEDURES Course of Care: the patient is a pleasant 40-year-old female with past medical history significant for gastroparesis presented for a vaginal abdominal pain. The patient is in a moderate amount of distress however does not appear toxic. Head discussion with patient in regards to her workup here in emergency department and is agreeable to the treatment and plan. At this point in time, we will try to avoid excessive radiation exposure because of the history of gastroparesis, would like to reduce the number of CT scans patient will be obtaining throughout her life with the History of gastroparesis. Patient does not respond appropriately to treatment or if significant abnormalities are noted on the patient's laboratory studies, we'll revisit having a CT scan of the abdomen. Patient is agreeable to the treatment plan at this time. Fluids of also been ordered in addition to pain medication. The patient's workup was monitored for the findings above. No acute abnormalities noted on patient's workup however patient needed additional pain medication while here in the emergency department. Because of this, a CT scan of the patient's abdomen and pelvis with contrast has been ordered. Patient is agreeable to the treatment and plan. The patient's workup does not show any acute intra-abdominal pathology requiring surgery. No other acute abnormalities noted. Patient's pain is significantly improved. Patient is resting in bed and in no acute distress. Patient was actually able to sleep while here in the emergency department. Had a discussion with patient in regards to her workup here in the emergency department including home care, follow-up, and return precautions. All questions have been answered. The patient expressed understanding of these instructions and was agreeable to them. Patient's repeat examination continues to be benign. Patient is a good outpatient candidate. Again does not feel patient has surgical abdomen or require admission to the hospital at this time. Disposition: Discharged. Condition: good. CLINICAL IMPRESSION Acute generalized abdominal pain. 07/20/2016 12:15 BP: 135/82. HR: 65. RR: 20. O2 saturation: 100%. Temp: 97.7 F. Pain level now: 10/10. Blood pressure normal. Oxygen saturation normal. Mild dehydration Vomiting with nausea. INSTRUCTIONS Warnings: GENERAL WARNINGS: Return or contact your physician immediately if your condition worsens or changes unexpectedly, if not improving as expected, or if other problems arise. SPECIFICALLY, return if you develop pain, fever, vomiting, the inability to keep fluids down, blood in vomitus, blood in diarrhea, fainting or lightheadedness. Your Current Medications: CONTINUE TAKING THE FOLLOWING MEDICATIONS: Abilify 5 mg hs *. Albuterol Sulfate HFA Inhalation. Bentyl Oral : 20 mg 3x a day. Carafate Oral : 1 gm 4x a day. Prazosin HCl Oral : 2 mg 3x a day. Reglan 10mg QID*. Sennna 86mg prn *. Sertraline HCl Oral : 100 mg daily. Vistaril Oral : 50 mg 1-2 caps hs. Zofran 8 mg q 8 hrs *. Prescription Medications: Zofran (orally disintegrating tablets) 4 mg: take 1 orally every 8 hours as needed for nausea and vomiting. Dispense fifteen (15). No refill. Substitution is permissible. Follow-up: Return to the emergency department as needed. Follow up with your doctor in three days. Reason for referral: recheck today's concerns. Summary of care provided to patient via paper. Screening today revealed the patient's blood pressure to be in the normal range. The patient should follow up with a primary care provider for blood pressure management. Understanding of the discharge instructions verbalized by patient. (Electronically signed by Louis Wells Dr. 07/23/2016 1:27)
--- NOTE | 2016-07-20 15:07 | ED NURSING NOTES ---
Clinical Report - Nurses [facility] [address] [place] [address] 07/20/2016 12:09 Patient: RIKY SCHMITT TRIAGE Triage time 12:15. Acuity: LEVEL 3. Chief Complaint: ABDOMINAL PAIN, NAUSEA and VOMITING. 12:16 07/20/16. 12:16 07/20/16. Alert. ( Pt was seen here on Wednesday for N/V, pt was feeling better Wednesday and woke up this AM and felt worse with N/V). SEPSIS SCREEN: Sepsis Screen. Negative (no infection suspected/documented). --12:20 Jacky Ferrell R.N. 12:15 07/20/16. BP: 135/82. HR: 65. RR: 20. O2 saturation: 100%. Temp: 97.7 F (temporal). Pain level now: 01/12. --12:20 Jacky Ferrell R.N. Weight: 68.4 kg stated. Height/Length: 65 inches Per Patient. BMI: 25.1. --12:15 Jacky Ferrell R.N. Medications Abilify 5 mg hs . Albuterol Sulfate HFA Inhalation. Bentyl Oral 20 mg, 3x a day. Carafate Oral 1 gm, 4x a day. Prazosin HCl Oral 2 mg, 3x a day. Reglan 10mg QID. Sennna 86mg prn . Sertraline HCl Oral 100 mg, daily. --12:19 Jacky Ferrell R.N. Vistaril Oral 50 mg 1-2 caps hs . Zofran 8 mg q 8 hrs . --12:19 Jacky Ferrell R.N. Medication/allergy information source: the patient. --12:20 Jacky Ferrell R.N. Allergies ASA. Codeine. EES. Ibuprofen. PCN. Sulfa Antibiotics. Vicodin. --12:19 Jacky Ferrell R.N. History Arrived by private vehicle. Historian: patient. Accompanied by family. Primary physician (WILLY HARVEY. 12:16 07/20/16. This started today. Treatment CHUMMER: None. PAST MEDICAL HX: Immunizations: up-to-date. Last normal menstrual period- ended 3 weeks ago. Denies current . SOCIAL HX: Current every day light tobacco smoker (cigarette)- less than 1/2 a pack per day. No alcohol use or drug use. No recent travel. No infectious disease exposure. No known contact with a sick individual. ABUSE ASSESSMENT: No report of abuse. FALL RISK ASSESSMENT: Fall risk assessment completed. No fall risk identified. NUTRITIONAL RISK ASSESSMENT: The nutritional risk assessment revealed no deficiencies. FUNCTIONAL ASSESSMENT: Functional assessment: no impairments noted. LEARNING NEEDS ASSESSMENT: The learning needs assessment revealed no barriers. SKIN INTEGRITY ASSESSMENT: Skin integrity risk assessment completed. No skin integrity risk identified. --12:20 Jacky Ferrell R.N. PROBLEMS: Vomiting. Murmur . SICKLE CELL TRAIT. Gastroparesis. Diabetes Mellitus Type 2. --12:19 Jacky Ferrell R.N. ADDITIONAL SURGERIES: Endoscopy. Knee Surgery. Tonsillectomy. --12:19 Jacky Ferrell R.N. Assessment 12:07/20/16. --12:20 Jacky Ferrell R.N. Interventions 12:07/20/16. 12:07/20/16. ID and allergy band on patient. To treatment room. --12:20 Jacky Ferrell R.N. PHYSICAL ASSESSMENT 12:07/20/16. To room via wheelchair. GENERAL / NEURO / PSYCH: Alert. Oriented X 4. Appears in pain. RESPIRATORY: Respirations not labored. CVS: Capillary refill less than 2 seconds. GI / : Abdominal tenderness diffusely. SKIN: Skin is warm and dry. --12:19 Jacky Ferrell R.N. NURSING PROGRESS NOTES 12:07/20/16. Two patient identifiers checked. Call light placed in reach. Side rails up x 2. Bed placed in lowest position. Brakes of bed on. --12:20 Jacky Ferrell R.N. 12:07/20/16. Patient ready for evaluation- chart flagged and notification provided. --12:20 Jacky Ferrell R.N. 12:07/20/16. ( FBS 108). --12:21 Jacky Ferrell R.N. 12:34 07/20/2016 Site #1 started via IV in the left antecubital space with an 20g angiocath; one attempt. Blood drawn: rainbow set. Labeled in the presence of the patient and sent to the lab. Saline lock flushed with 10 mL saline. --12:34 Jacky Ferrell R.N. 12:34 07/20/2016 Started bag #1 1000 mL IV Fluids IV NS (Saline); at 1000 mL/hr over 1 hour(s) via site #1. Allergies verified and confirmed 5 rights. IV patency established. IV site checked: no pain, redness, or swelling. IV flushed thoroughly pre- and post-medication administration. Completed per protocol. --12:34 Jacky Ferrell R.N. 12:34 07/20/2016 Zofran (Ondansetron HCl) IVP 4 mg given over 2 minute(s) via site #1. Allergies verified and confirmed 5 rights. IV patency established. IV site checked: no pain, redness, or swelling. IV flushed thoroughly pre- and post-medication administration. IVP given by RN. --12:34 Jacky Ferrell R.N. 12:35 07/20/16. ( Unable to provide UA due to pain). --12:35 Jacky Ferrell R.N. 12:39 07/20/16. Patient and family informed about reason for wait and about plan of care. --12:39 Jacky Ferrell R.N. 13:03 07/20/2016 Dilaudid (HYDROmorphone HCl PF) IVP 1 mg given over 2 minute(s) via site #1. Allergies verified, confirmed 5 rights and sedative warning given to the patient. IV patency established. IV site checked: no pain, redness, or swelling. IV flushed thoroughly pre- and post-medication administration. IVP given by RN. --13:03 Jacky Ferrell R.N. 13:03 07/20/2016 Ativan (LORazepam) IVP 1 mg given over 2 minute(s) via site #1. Allergies verified, confirmed 5 rights and sedative warning given to the patient. IV patency established. IV site checked: no pain, redness, or swelling. IV flushed thoroughly pre- and post-medication administration. IVP given by RN. --13:03 Jacky Ferrell R.N. 13:03 07/20/16. HR: 67. O2 saturation: 98% on room air. --13:04 Jacky Ferrell R.N. 13:04 07/20/16. Pulse oximeter placed on patient. --13:04 Jacky Ferrell R.N. 13:09 07/20/16. ( Pt up to void to provide urine sample). --13:09 Jacky Ferrell R.N. Patient ID band checked for patient name and birthdate: patient confirmed. Instructions provided to collect clean catch urine and patient verbalized understanding. Clean catch urine collected with return of yellow-colored clear urine; odor is normal; sample sent to lab for urinalysis and culture. Specimen labeled in the presence of the patient. --13:17 Houston Christiansen R.N. Patient and family informed about reason for wait and about plan of care. --13:24 Jacky Ferrell R.N. 13:24 07/20/16. Patient waiting for lab results. --13:24 Jacky Ferrell R.N. 13:45 07/20/2016 Dilaudid IVP Response: symptoms are the same. --13:50 Jakcy Ferrell R.N. 13:50 07/20/2016 Dilaudid (HYDROmorphone HCl PF) IVP 1 mg given over 2 minute(s) via site #1. Allergies verified, confirmed 5 rights and sedative warning given to the patient. IV patency established. IV site checked: no pain, redness, or swelling. IV flushed thoroughly pre- and post-medication administration. IVP given by RN. --13:50 Jacky Ferrell R.N. 13:51 07/20/2016 IV Fluids IV NS Discontinued: bag #1 infused. Total amount infused: 1000 mL. IV patency established. IV site checked: no pain, redness, or swelling. IV flushed thoroughly. --13:51 Jacky Ferrell R.N. 13:51 07/20/16. BP: 118/66. HR: 68. RR: 18. O2 saturation: 98%. Pain level now: 09/12. --13:51 Jacky Ferrell R.N. 13:51 07/20/16. --13:51 Jacky Ferrell R.N. 13:52 07/20/16. Patient and family informed about reason for wait and about plan of care. --13:52 Jacky Ferrell R.N. 14:15 07/20/16. Patient and family informed about reason for wait and about plan of care. --14:15 Jacky Ferrell R.N. 14:15 07/20/16. Patient waiting for CT results. --14:15 Jacky Ferrell R.N. 14:33 07/20/16. BP: 109/65. HR: 64. RR: 18. O2 saturation: 97% on room air. Pain level now: 08/12. --14:35 Jacky Ferrell R.N. 14:35 07/20/16. --14:35 Jacky Ferrell R.N. 14:36 07/20/16. Reassessment after medication administered. She has had no adverse reaction. Overall patient status- she states feels better (feels better since she arrival to ED, 08/12 pain). --14:36 Jacky Ferrell R.N. 14:43 07/20/2016 PHENERGAN (Promethazine HCl) IVP 25 mg given over 2 minute(s) via site #1. Allergies verified and confirmed 5 rights. IV patency established. IV site checked: no pain, redness, or swelling. IV flushed thoroughly pre- and post-medication administration. IVP given by RN. --14:43 Jacky Ferrell R.N. DISPOSITION / DISCHARGE 15:07/20/2016 Site #1 removed upon discharge. Catheter intact. --15:14 Jacky Ferrell R.N. 15:14 07/20/16. The goals identified in the patient's plan of care were met. No learning barriers present. Discharge instructions provided and reviewed with the patient and spouse. Reviewed warnings. Reviewed medication(s). Treatments reviewed. Patient and spouse verbalized understanding. Written instructions provided in Japanese. The patient was discharged by the physician. She was discharged home and accompanied by family. She left the Emergency Department ambulatory and via private vehicle. Family member driving. FALL RISK ASSESSMENT: Fall risk assessment completed. No fall risk identified. --15:14 Jacky Ferrell R.N. 15:13 07/20/16. BP: 121/68. HR: 78. RR: 16. O2 saturation: 100% on room air. Temp: 98.2 F (oral). --15:14 Jacky Ferrell R.N. 15:15 07/20/16. Departure time: 15:15. --15:15 Jacky Ferrell R.N. Locked/Released at 07/20/2016 15:53 by Jacky Ferrell R.N.
--- NOTE | 2016-07-20 15:07 | ED ORDER SUMMARY ---
..... Patient: RIKY SCHMITT OrderSheet [facility] VisitID: [id number] [address] [place] [address] 40y, F Registration Date/Time: 07/20/2016 ORDER SHEET Weight: 68.4 kg (stated) Allergies: ASA, Codeine, EES, Ibuprofen, PCN, Sulfa Antibiotics, Vicodin GENERAL ORDERS: UA-Culture if indicated Urgent (12:28 07/20/2016 Jovan Larsen) (Ack 12:32 PWeiler ER Tech1) (13:17 Vikas) CBC w Diff Urgent (12:34 07/20/2016 JBoardley R.N. per protocol) (Ack 12:35 PWeiler ER Tech1) (12:56 JBoardley R.N.) CMP Urgent (12:34 07/20/2016 JBoardley R.N. per protocol) (Ack 12:35 PWeiler ER Tech1) (12:56 JBoardley R.N.) Lipase Urgent (12:55 07/20/2016 Jovan Larsen) (Ack 12:57 PWeiler ER Tech1) (13:03 JBoardley R.N.) Serum Quantitative Urgent (12:56 07/20/2016 Jovan Larsen) (Ack 12:57 PWeiler ER Tech1) (13:17 Vikas) Pulse oximeter (13:04 07/20/2016 JBoardley R.N. per protocol) (13:04 JBoardley R.N.) CT Abd/Pel w Cont (Yes) (N/A) Urgent (13:53 07/20/2016 Jovan Larsen) (Ack 13:54 PWeiler ER Tech1) (14:10 JBoardley R.N.) MEDICATION ORDERS: Phenergan IV 25 mg (HIGH ALERT MEDICATION, NOW) (14:38 07/20/2016 Jovan Larsen) (Ack 14:38 JBoardley R.N.) (14:43 JBoardley R.N.) IV FLUIDS: IV NS : initial bolus none -, then 1000 mL/hr for X1 (NOW); Routine (12:33 07/20/2016 JBoardley R.N. per protocol) (12:34 JBoardley R.N.) Zofran IV 4 mg (NOW) (12:33 07/20/2016 JBoardley R.N. per protocol) (12:34 JBoardley R.N.) IV NS : initial bolus 1000 mL (1000 mL/hr), then none - for X1 (NOW) (12:54 07/20/2016 Jovan Larsen) (Ack 12:56 JBoardley R.N.) (Cancelled: Duplicate Order12:58 Jovan Larsen) Dilaudid IV 1 mg (once now. may repeat once in 15 minutes for pain > 5/10) (12:55 07/20/2016 Jovan Larsen) (Ack 12:56 JBoardleadam R.N.) (13:03 JBoardley R.N.) Zofran IV 4 mg (NOW) (12:55 07/20/2016 Jovan Larsen) (Ack 12:56 ZORAIDAoardleadam R.N.) (Cancelled: Duplicate Order12:58 Jovan Larsen) Ativan IV 1 mg (HIGH ALERT MEDICATION, NOW) (12:55 07/20/2016 Jovan Larsen) (Ack 12:56 JBoardleadam R.N.) (13:03 JBoardley R.N.) ORDER SHEET NOTES: [Electronically signed by Jacky Ferrell R.N. (15:53 07/20/2016)] [Electronically signed by Louis Wells Dr. (01:27 07/23/2016)] [Electronically locked/signed by Jacky Ferrell R.N. (15:53 07/20/2016)]
--- NOTE | 2016-07-20 15:07 | ED ORDER SUMMARY ---
..... Patient: RIKY SCHMITT OrderSheet [facility] VisitID: [id number] [address] [place] [address] 40y, F Registration Date/Time: 07/20/2016 ORDER SHEET Weight: 68.4 kg (stated) Allergies: ASA, Codeine, EES, Ibuprofen, PCN, Sulfa Antibiotics, Vicodin GENERAL ORDERS: UA-Culture if indicated Urgent (12:28 07/20/2016 Jovan Larsen) (Ack 12:32 PWeiler ER Tech1) (13:17 Vikas) CBC w Diff Urgent (12:34 07/20/2016 JBoardley R.N. per protocol) (Ack 12:35 PWeiler ER Tech1) (12:56 JBoardley R.N.) CMP Urgent (12:34 07/20/2016 JBoardley R.N. per protocol) (Ack 12:35 PWeiler ER Tech1) (12:56 JBoardley R.N.) Lipase Urgent (12:55 07/20/2016 Jovan Larsen) (Ack 12:57 PWeiler ER Tech1) (13:03 JBoardley R.N.) Serum Quantitative Urgent (12:56 07/20/2016 Jovan Larsen) (Ack 12:57 PWeiler ER Tech1) (13:17 Vikas) Pulse oximeter (13:04 07/20/2016 JBoardley R.N. per protocol) (13:04 JBoardley R.N.) CT Abd/Pel w Cont (Yes) (N/A) Urgent (13:53 07/20/2016 Jovan Larsen) (Ack 13:54 PWeiler ER Tech1) (14:10 JBoardley R.N.) MEDICATION ORDERS: Phenergan IV 25 mg (HIGH ALERT MEDICATION, NOW) (14:38 07/20/2016 Jovan Larsen) (Ack 14:38 JBoardley R.N.) (14:43 JBoardley R.N.) IV FLUIDS: IV NS : initial bolus none -, then 1000 mL/hr for X1 (NOW); Routine (12:33 07/20/2016 JBoardley R.N. per protocol) (12:34 JBoardley R.N.) Zofran IV 4 mg (NOW) (12:33 07/20/2016 JBoardley R.N. per protocol) (12:34 JBoardley R.N.) IV NS : initial bolus 1000 mL (1000 mL/hr), then none - for X1 (NOW) (12:54 07/20/2016 Jovan Larsen) (Ack 12:56 JBoardley R.N.) (Cancelled: Duplicate Order12:58 Jovan Larsen) Dilaudid IV 1 mg (once now. may repeat once in 15 minutes for pain > 5/10) (12:55 07/20/2016 Jovan Larsen) (Ack 12:56 JBoardleadam R.N.) (13:03 JBoardley R.N.) Zofran IV 4 mg (NOW) (12:55 07/20/2016 Jovan Larsen) (Ack 12:56 ZORAIDAoardleadam R.N.) (Cancelled: Duplicate Order12:58 Jovan Larsen) Ativan IV 1 mg (HIGH ALERT MEDICATION, NOW) (12:55 07/20/2016 Jovan Larsen) (Ack 12:56 JBoardleadam R.N.) (13:03 JBoardley R.N.) ORDER SHEET NOTES: [Electronically signed by Jacky Ferrell R.N. (15:53 07/20/2016)] [Electronically signed by Louis Wells Dr. (01:27 07/23/2016)] [Electronically locked/signed by Jacky Ferrell R.N. (15:53 07/20/2016)]
--- NOTE | 2016-07-23 01:28 | ED MAR SUMMARY ---
..... Medication Administration Record [facility] [address] [place] [address] Patient: RIKY SCHMITT Visit ID: [id number] 40y, F Weight: 68.4 kg Height/Length: 65 in BMI: 25.1 ALLERGIES: ASA, Codeine, EES, Ibuprofen, PCN, Sulfa Antibiotics, Vicodin Start 12:34 07/20/2016 Jacky Ferrell R.N., Stop 13:51 07/20/2016 Jacyk Ferrell R.N. Medication Administered: IV NS (SALINE), Dose: IV Fluids over 1 hour(s), Rate: 1000 mL/hr, Dispensed: 1000 mL bag, Site: #1 left AC. Medication Ordered: IV NS : initial bolus none -, then 1000 mL/hr for X1 (NOW); Routine. Given 12:34 07/20/2016 Jacky Ferrell R.N. Medication Administered: ZOFRAN [IVP] (ONDANSETRON HCL), Dose: 4 mg IVP over 2 minute(s), Site: #1 left AC. Medication Ordered: Zofran IV 4 mg (NOW). Given 13:03 07/20/2016 Jacky Ferrell R.N. Medication Administered: DILAUDID [IVP] (HYDROMORPHONE HCL PF), Dose: 1 mg IVP over 2 minute(s), Site: #1 left AC. Medication Ordered: Dilaudid IV 1 mg (once now. may repeat once in 15 minutes for pain > 5/10). Given 13:03 07/20/2016 Jacky Ferrell R.N. Medication Administered: ATIVAN [IVP] (LORAZEPAM), Dose: 1 mg IVP over 2 minute(s), Site: #1 left AC. Medication Ordered: Ativan IV 1 mg (HIGH ALERT MEDICATION, NOW). Given 13:50 07/20/2016 Jacky Ferrell R.N. Medication Administered: DILAUDID [IVP] (HYDROMORPHONE HCL PF), Dose: 1 mg IVP over 2 minute(s), Site: #1 left AC. Medication Ordered: Dilaudid IV 1 mg (once now. may repeat once in 15 minutes for pain > 5/10). Given 14:43 07/20/2016 Jacky Ferrell R.N. Medication Administered: PHENERGAN [IVP] (PROMETHAZINE HCL), Dose: 25 mg IVP over 2 minute(s), Site: #1 left AC. Medication Ordered: Phenergan IV 25 mg (HIGH ALERT MEDICATION, NOW).
--- NOTE | 2016-07-23 01:28 | ED MED RECONCILIATION SUMMARY ---
Patient: RIKY SCHMITT Medication Reconciliation Report [facility] VisitID: [id number] [address] [place] [address] 40y, F Registration Date/Time: 07/20/2016 Weight: 68.4 kg Height/Length: 65 in. BMI: 25.1 ALLERGIES: ASA, Codeine, EES, Ibuprofen, PCN, Sulfa Antibiotics, Vicodin The patient's Home Medications are listed below: CONTINUE TAKING THE FOLLOWING MEDICATIONS: Abilify 5 mg hs Albuterol Sulfate HFA Inhalation Bentyl Oral 20 mg, 3x a day Carafate Oral 1 gm, 4x a day Prazosin HCl Oral 2 mg, 3x a day Reglan 10mg QID Sennna 86mg prn Sertraline HCl Oral 100 mg, daily Vistaril Oral 50 mg 1-2 caps hs Zofran 8 mg q 8 hrs The source(s) of the original Home Medication information: patient The following Medications were given to the patient in the Emergency Department: IV NS IV Fluids bolus 0, then 1000 mL/hr, administered: 07/20/2016 12:34:00 PM Zofran [IVP] IVP 4 mg, administered: 07/20/2016 12:34:00 PM Dilaudid [IVP] IVP 1 mg, administered: 07/20/2016 1:03:00 PM Ativan [IVP] IVP 1 mg, administered: 07/20/2016 1:03:00 PM Dilaudid [IVP] IVP 1 mg, administered: 07/20/2016 1:50:00 PM PHENERGAN [IVP] IVP 25 mg, administered: 07/20/2016 2:43:00 PM The following Medications were prescribed to the patient: Zofran (orally disintegrating tablets) 4 mg: take 1 orally every 8 hours as needed for nausea and vomiting. Dispense fifteen (15). No refill. Substitution is permissible. -- Louis Wells Dr.
--- NOTE | 2016-07-23 01:28 | ED DISCHARGE INSTRUCTIONS ---
Patient: RIKY SCHMITT General Instructions [facility] VisitID: [id number] [address] [place] [address] 40y, F Registration Date/Time: 07/20/2016 Acute generalized abdominal pain. 07/20/2016 12:15 BP: 135/82. HR: 65. RR: 20. O2 saturation: 100%. Temp: 97.7 F. Pain level now: 01/12. Blood pressure normal. Oxygen saturation normal. Mild dehydration Vomiting with nausea. INSTRUCTIONS Warnings: GENERAL WARNINGS: Return or contact your physician immediately if your condition worsens or changes unexpectedly, if not improving as expected, or if other problems arise. SPECIFICALLY, return if you develop pain, fever, vomiting, the inability to keep fluids down, blood in vomitus, blood in diarrhea, fainting or lightheadedness. Your Current Medications: CONTINUE TAKING THE FOLLOWING MEDICATIONS: Abilify 5 mg hs *. Albuterol Sulfate HFA Inhalation. Bentyl Oral : 20 mg 3x a day. Carafate Oral : 1 gm 4x a day. Prazosin HCl Oral : 2 mg 3x a day. Reglan 10mg QID*. Sennna 86mg prn *. Sertraline HCl Oral : 100 mg daily. Vistaril Oral : 50 mg 1-2 caps hs. Zofran 8 mg q 8 hrs *. Prescription Medications: Zofran (orally disintegrating tablets) 4 mg: take 1 orally every 8 hours as needed for nausea and vomiting. Dispense fifteen (15). No refill. Substitution is permissible. Follow-up: Return to the emergency department as needed. Follow up with your doctor in three days. Reason for referral: recheck today's concerns. Summary of care provided to patient via paper. Screening today revealed the patient's blood pressure to be in the normal range. The patient should follow up with a primary care provider for blood pressure management. Understanding of the discharge instructions verbalized by patient. ADDITIONAL INFORMATION Abdominal Pain, Unknown Cause (Female) The exact cause of your abdominal (stomach) pain is not certain. This does not mean that this is something to worry about, or the right tests were not done. Everyone likes to know the exact cause of the problem, but sometimes with abdominal pain, there is no clear-cut cause, and this could be a good thing. The good news is that your symptoms can be treated, and you will feel better. Your condition does not seem serious now; however, sometimes the signs of a serious problem may take more time to appear. For this reason,it is important for you to watch for any new symptoms, problems,or worsening of your condition. Over the next few days, the abdominal pain may come and go, or be continuous. Other common symptoms can include nausea and vomiting. Sometimes it can be difficult to tell if you feel nauseous, you may just feel bad and not associate that feeling with nausea. Constipation, diarrhea, and a fever may go along with the pain. The pain may continue even if treated correctly over the following days. Depending on how things go, sometimes the cause can become clear and may require further or different treatment. Additional evaluations, medications, or tests may be needed. Home care Your health care provider may prescribe medications for pain, symptoms, or an infection. Follow the health care provider's instructions for taking these medications. General care Rest until your next exam. No strenuous activities. Try to find positions that ease discomfort. A small pillow placed on the abdomen may help relieve pain. Something warm on your abdomen (such as a heating pad) may help, but be careful not to burn yourself. Diet Do not force yourself to eat, especially if having cramps, vomiting, or diarrhea. Water is important so you do not get dehydrated. Soup may also be good. Sports drinks may also help, especially if they are not too acidic. Make sure you don't drink sugary drinks as this can make things worse. Take liquids in small amounts. Do not guzzle them. Caffeine sometimes makes the pain and cramping worse. Avoid dairy products if you have vomiting or diarrhea. Don't eat large amounts at a time. Wait a few minutes between bites. Eat a diet low in fiber (called a low-residue diet). Foods allowed include refined breads, white rice, fruit and vegetable juices without pulp, tender meats. These foods will pass more easily through the intestine. Avoid whole-grain foods, whole fruits and vegetables, meats, seeds and nuts, fried or fatty foods, dairy, alcohol and spicy foods until your symptoms go away. Follow-up care Follow up with your health care provider as instructed, or if your pain does not begin to improve in the next 24 hours. When to seek medical care Seek prompt medical care if any of the following occur: Pain gets worse or moves to the right lower abdomen New or worsening vomiting or diarrhea Swelling of the abdomen Unable to pass stool for more than three days Fever of 100.4F (38C) or higher, or as directed by your healthcare provider. Blood in vomit or bowel movements (dark red or black color) Jaundice (yellow color of eyes and skin) Weakness, dizziness Chest, arm, back, neck or jaw pain Unexpected vaginal bleeding or missed period Call 911 Call emergency services if any of the following occur: Trouble breathing Confusion Fainting or loss of consciousness Rapid heart rate Seizure Vomiting [6Yr-Adult] Vomiting is a common symptom that may be due to different causes. These include gastroenteritis ("stomach flu"), food poisoning and gastritis. There are other more serious causes of vomiting which may be hard to diagnose early in the illness. Therefore, it is important to watch for the warning signs listed below. The main danger from repeated vomiting is dehydration. This is due to excess loss of water and minerals from the body. When this occurs, body fluids must be replaced. Home Care: If symptoms are severe, rest at home for the next 24 hours. You may use acetaminophen (Tylenol) or ibuprofen (Motrin, Advil) to control fever, unless another medicine was prescribed. [NOTE : If you have chronic liver or kidney disease or ever had a stomach ulcer or GI bleeding, talk with your doctor before using these medicines.] (Aspirin should never be used in anyone under 18 years of age who is ill with a fever. It may cause severe liver damage.) Avoid tobacco and alcohol use, which may worsen your symptoms. If medicines for vomiting were prescribed, take as directed. Once vomiting stops, then follow these guidelines: During The First 12-24 Hours follow the diet below: FRUIT JUICES: Apple, grape juice, clear fruit drinks, and electrolyte replacement drinks. BEVERAGES: Soft drinks without caffeine; mineral water (plain or flavored), decaffeinated tea and coffee. SOUPS: Clear broth, consomm and bouillon DESSERTS: Plain gelatin, popsicles and fruit juice bars. As you feel better, you may add 6-8 ounces of yogurt per day. During The Next 24 Hours you may add the following to the above: Hot cereal, plain toast, bread, rolls, crackers Plain noodles, rice, mashed potatoes, chicken noodle or rice soup Unsweetened canned fruit (avoid pineapple), bananas Limit caffeine and chocolate. No spices or seasonings except salt. During The Next 24 Hours Gradually resume a normal diet, as you feel better and your symptoms lessen. Follow Up with your doctor as advised if you are not improving over the next 2-3 days. Get Prompt Medical Attention if any of the following occur: Constant right-sided lower abdominal pain or increasing general abdominal pain Continued vomiting (unable to keep liquids down) for 24 hours Frequent diarrhea (more than 5 times a day); blood (red or black color) or mucus in diarrhea Reduced urine output or extreme thirst Weakness, dizziness or fainting Unusually drowsy or confused Fever of 100.4F (38C) oral or higher, not better with fever medication Yellow color of the eyes or skin Dehydration (Adult) Dehydration occurs when your body loses too much fluid. This may be the result of vomiting a lot or from diarrhea,sweating a lot, or a high fever. It may also happen if you dont drink enough fluid when youre sick. Misuse of diuretics (water pills) can also be a cause. Symptoms include thirst and feeling dizzy, weak, fatigued, or very drowsy. The diet described below is usually enough to treat most cases. Sometimes you may needmedicine. Home Care Follow these guidelines for home care: Drink at least 12 8-ounce glasses of fluid every day to overcome the dehydration. Fluid may include water; orange juice; lemonade; apple, grape, and cranberry juice; clear fruit drinks; electrolyte replacement and sports drinks; and teas and coffee without caffeine. If you have been diagnosed with a kidney disease, ask your doctor how much and what types of fluids you should drink to prevent dehydration. If you have kidney disease, drinking too much fluid can cause it build up in the your body and be dangerous to your health. If you have fever, muscle aching, or headache from a viral syndrome, you may useacetaminophen or ibuprofen, unless another medicine was prescribed for this.If you have chronic liver or kidney disease or ever had a stomach ulcer or GI bleeding, talk with your doctor before using these medicines. Don't take aspirin if you are younger than 18 and are ill with a fever.Aspirin raises the chance forsevere liver injury. Follow-up care Follow up with your health care provider if you don't get better in the next 24 to 48 hours. When to seek medical care Get prompt medical attention if any of theseoccur: Continued vomiting (cant keep liquids down) Frequent diarrhea (more than 5 times a day); blood (red or black color) or mucus in diarrhea Blood in vomit or stool Swollen abdomen or increasing abdominal pain Weakness, dizziness, or fainting Unusually drowsy or confused Reduced urine output or extreme thirst Fever of 100.4 F (38 C) oral or higher that does not get better with fever medication Ondansetron Oral disintegrating tablet What is this medicine? ONDANSETRON (on SHELIA se romain) is used to treat nausea and vomiting caused by chemotherapy. It is also used to prevent or treat nausea and vomiting after surgery. How should I use this medicine? These tablets are made to dissolve in the mouth. Do not try to push the tablet through the foil backing. With dry hands, peel away the foil backing and gently remove the tablet. Place the tablet in the mouth and allow it to dissolve, then swallow. While you may take these tablets with water, it is not necessary to do so. Talk to your e commerce specialist regarding the use of this medicine in children. Special care may be needed. What side effects may I notice from receiving this medicine? Side effects that you should report to your doctor or health child care education coordinator as soon as possible: allergic reactions like skin rash, itching or hives, swelling of the face, lips, or tongue breathing problems dizziness fast or irregular heartbeat feeling faint or lightheaded, falls fever and chills swelling of the hands and feet tightness in the chest Side effects that usually do not require medical attention (report to your doctor or health child care education coordinator if they continue or are bothersome): constipation or diarrhea headache What may interact with this medicine? Do not take this medicine with any of the following medications: -apomorphine -cisapride -dofetilide -dronedarone -pimozide -thioridazine -ziprasidone This medicine may also interact with the following medications: -carbamazepine -phenytoin -rifampicin -tramadol -other medicines that prolong the QT interval (cause an abnormal heart rhythm) What if I miss a dose? If you miss a dose, take it as soon as you can. If it is almost time for your next dose, take only that dose. Do not take double or extra doses. Where should I keep my medicine? Keep out of the reach of children. Store between 2 and 30 degrees C (36 and 86 degrees F). Throw away any unused medicine after the expiration date. What should I tell my health care provider before I take this medicine? They need to know if you have any of these conditions: heart disease history of irregular heartbeat liver disease low levels of magnesium or potassium in the blood an unusual or allergic reaction to ondansetron, granisetron, other medicines, foods, dyes, or preservatives or trying to get breast-feeding What should I watch for while using this medicine? Check with your doctor or health child care education coordinator as soon as you can if you have any sign of an allergic reaction. You have been given the following additional information: Abdominal Pain, Unknown Cause, (Female) Vomiting (6Y-Adult) Dehydration (Adult) Ondansetron Oral disintegrating tablet (Electronically signed by Louis Wells Dr. 07/23/2016 1:27)
--- NOTE | 2016-07-23 01:28 | ED MED RECONCILIATION SUMMARY ---
Patient: RIKY SCHMITT Medication Reconciliation Report [facility] VisitID: [id number] [address] [place] [address] 40y, F Registration Date/Time: 07/20/2016 Weight: 68.4 kg Height/Length: 65 in. BMI: 25.1 ALLERGIES: ASA, Codeine, EES, Ibuprofen, PCN, Sulfa Antibiotics, Vicodin The patient's Home Medications are listed below: CONTINUE TAKING THE FOLLOWING MEDICATIONS: Abilify 5 mg hs Albuterol Sulfate HFA Inhalation Bentyl Oral 20 mg, 3x a day Carafate Oral 1 gm, 4x a day Prazosin HCl Oral 2 mg, 3x a day Reglan 10mg QID Sennna 86mg prn Sertraline HCl Oral 100 mg, daily Vistaril Oral 50 mg 1-2 caps hs Zofran 8 mg q 8 hrs The source(s) of the original Home Medication information: patient The following Medications were given to the patient in the Emergency Department: IV NS IV Fluids bolus 0, then 1000 mL/hr, administered: 07/20/2016 12:34:00 PM Zofran [IVP] IVP 4 mg, administered: 07/20/2016 12:34:00 PM Dilaudid [IVP] IVP 1 mg, administered: 07/20/2016 1:03:00 PM Ativan [IVP] IVP 1 mg, administered: 07/20/2016 1:03:00 PM Dilaudid [IVP] IVP 1 mg, administered: 07/20/2016 1:50:00 PM PHENERGAN [IVP] IVP 25 mg, administered: 07/20/2016 2:43:00 PM The following Medications were prescribed to the patient: Zofran (orally disintegrating tablets) 4 mg: take 1 orally every 8 hours as needed for nausea and vomiting. Dispense fifteen (15). No refill. Substitution is permissible. -- Louis Wells Dr.
--- NOTE | 2016-07-23 01:28 | ED MAR SUMMARY ---
..... Medication Administration Record [facility] [address] [place] [address] Patient: RIKY SCHMITT Visit ID: [id number] 40y, F Weight: 68.4 kg Height/Length: 65 in BMI: 25.1 ALLERGIES: ASA, Codeine, EES, Ibuprofen, PCN, Sulfa Antibiotics, Vicodin Start 12:34 07/20/2016 Jacky Ferrell R.N., Stop 13:51 07/20/2016 Jacky Ferrell R.N. Medication Administered: IV NS (SALINE), Dose: IV Fluids over 1 hour(s), Rate: 1000 mL/hr, Dispensed: 1000 mL bag, Site: #1 left AC. Medication Ordered: IV NS : initial bolus none -, then 1000 mL/hr for X1 (NOW); Routine. Given 12:34 07/20/2016 Jacky Ferrell R.N. Medication Administered: ZOFRAN [IVP] (ONDANSETRON HCL), Dose: 4 mg IVP over 2 minute(s), Site: #1 left AC. Medication Ordered: Zofran IV 4 mg (NOW). Given 13:03 07/20/2016 Jacky Ferrell R.N. Medication Administered: DILAUDID [IVP] (HYDROMORPHONE HCL PF), Dose: 1 mg IVP over 2 minute(s), Site: #1 left AC. Medication Ordered: Dilaudid IV 1 mg (once now. may repeat once in 15 minutes for pain > 5/10). Given 13:03 07/20/2016 Jacky Ferrell R.N. Medication Administered: ATIVAN [IVP] (LORAZEPAM), Dose: 1 mg IVP over 2 minute(s), Site: #1 left AC. Medication Ordered: Ativan IV 1 mg (HIGH ALERT MEDICATION, NOW). Given 13:50 07/20/2016 Jacky Ferrell R.N. Medication Administered: DILAUDID [IVP] (HYDROMORPHONE HCL PF), Dose: 1 mg IVP over 2 minute(s), Site: #1 left AC. Medication Ordered: Dilaudid IV 1 mg (once now. may repeat once in 15 minutes for pain > 5/10). Given 14:43 07/20/2016 Jacky Ferrell R.N. Medication Administered: PHENERGAN [IVP] (PROMETHAZINE HCL), Dose: 25 mg IVP over 2 minute(s), Site: #1 left AC. Medication Ordered: Phenergan IV 25 mg (HIGH ALERT MEDICATION, NOW).
== END 2016-07-20 15:15 | disposition home or self-care (01) ==
LOC: ED SRH 12:09
DX: R10.84 Generalized abdominal pain (principal); E86.0 Dehydration; R11.2 Nausea with vomiting, unspecified; E11.43 Type 2 diabetes mellitus with diabetic autonomic (poly)neuropathy; Z79.899 Other long term (current) drug therapy; Z88.2 Allergy status to sulfonamides; Z88.0 Allergy status to penicillin; Z88.8 Allergy status to other drugs, medicaments and biological substances
CPT/HCPCS: 90004; 90100; 90197; 90469; 92235; 95059

== ENCOUNTER 2016-08-04 14:16 | Emergency (ER) | payer BC ==
--- NOTE | 2016-08-04 16:31 | ED NURSING NOTES ---
Clinical Report - Nurses Merged With [facility] [address] [place] [address] 08/04/2016 14:17 Patient: RIKY SCHMITT TRIAGE Triage time 14:22. Acuity: LEVEL 3. Chief Complaint: ABDOMINAL PAIN, NAUSEA and VOMITING. Alert. DAYDAY COMA SCORE: [place] Coma Scale: 15- eyes open spontaneously (4); best verbal response- oriented x 4 (5); best motor response- obeys commands (6). --14:27 Radha Duarte R.N. 14:22 08/04/16. BP: 166/57. HR: 61. RR: 18. O2 saturation: 98% on room air. Temp: 97.5 F (oral). Pain level now: 01/12. --14:27 Radha Duarte R.N. Weight: 68 kg stated. Height/Length: 65 inches Per Patient. BMI: 25. --14:23 Radha Duarte R.N. Medications Abilify 5 mg hs . Albuterol Sulfate HFA Inhalation. Bentyl Oral 20 mg, 3x a day. Carafate Oral 1 gm, 4x a day. Prazosin HCl Oral 2 mg, 3x a day. Reglan 10mg QID. Sennna 86mg prn . Sertraline HCl Oral 100 mg, daily. Vistaril Oral 50 mg 1-2 caps hs . Zofran 8 mg q 8 hrs . --14:23 Radha Duarte R.N. Medication/allergy information source: the patient. --14:27 Radha Duarte R.N. Allergies ASA. Codeine. EES. Ibuprofen. PCN. Sulfa Antibiotics. Vicodin. --14:23 Radha Duarte R.N. History Arrived by private vehicle. Historian: patient. Accompanied by family. Primary physician (Frances). This started yesterday. PAST MEDICAL HX: Last normal menstrual period now. SOCIAL HX: Heavy tobacco smoker- less than 1 pack per day. No alcohol use or drug use. FALL RISK ASSESSMENT: Fall risk assessment completed. No fall risk identified. FUNCTIONAL ASSESSMENT: Functional assessment: no impairments noted. LEARNING NEEDS ASSESSMENT: The learning needs assessment revealed no barriers. --14:27 Radha Duarte R.N. PROBLEMS: Dehydration. Abdominal Pain. Vomiting. Murmur . SICKLE CELL TRAIT. Gastroparesis. Diabetes Mellitus Type 2. --14:23 Radha Duarte R.N. ADDITIONAL SURGERIES: Endoscopy. Knee Surgery. Tonsillectomy. --14:23 Radha Duarte R.N. Assessment GENERAL / NEURO / PSYCH: The patient is awake and alert, is oriented and cooperative and appears uncomfortable. She has poor eye contact. RESPIRATORY: Respirations not labored. SKIN: Skin is warm and dry. --14:27 Radha Duarte R.N. Interventions ID and allergy band on patient. To treatment room. --14:27 Radha Duarte R.N. PHYSICAL ASSESSMENT 14:54 08/04/16. To room via wheelchair. Patient gowned. GENERAL / NEURO / PSYCH: The patient is awake and alert, is oriented and cooperative and appears uncomfortable. She has poor eye contact. ( crying and rocking on the bed c/o pain). RESPIRATORY: Respirations not labored. SKIN: Skin is warm and dry. --14:54 Radha Duarte R.N. NURSING PROGRESS NOTES 14:53 08/04/16. Patient gowned. Head of bed elevated. Call light placed in reach. Side rails up x 1. Bed placed in lowest position. Brakes of bed on. --14:53 Radha Duarte R.N. 14:55 08/04/2016 Site #1 started via IV in the left hand with an 22g angiocath, with aseptic technique and good blood return; one attempt. Blood drawn: rainbow set. Labeled in the presence of the patient and sent to the lab. Saline lock flushed with 10 mL saline. --14:55 Radha Duarte R.N. 15:02 08/04/2016 Benadryl (DiphenhydrAMINE HCl) IVP 50 mg given over 2 minute(s) via site #1. Allergies verified, confirmed 5 rights and sedative warning given to the patient and patient's felt washing machine tender. IV patency established. IV site checked: no pain, redness, or swelling. IV flushed thoroughly pre- and post-medication administration. --15:02 Vernon Ramon R.N. 15:08/04/2016 Started bag #1 1000 mL IV Fluids IV NS (Saline); at 999 mL/hr over 1 hour(s) via site #1 via dial-a-flow. Allergies verified and confirmed 5 rights. IV patency established. IV site checked: no pain, redness, or swelling. IV flushed thoroughly pre- and post-medication administration. --15: Vernon Ramon R.N. 15:08/04/2016 Zofran (Ondansetron HCl) IVP 4 mg given over 1 minute(s) via site #1. Allergies verified and confirmed 5 rights. IV patency established. IV site checked: no pain, redness, or swelling. IV flushed thoroughly pre- and post-medication administration. --15: Vernon Ramon R.N. 15:08/04/2016 Reglan (Metoclopramide HCl) IVP 10 mg given over 1 minute(s) via site #1. Allergies verified and confirmed 5 rights. IV patency established. IV site checked: no pain, redness, or swelling. IV flushed thoroughly pre- and post-medication administration. --15: Vernon Ramon R.N. 15:08/04/2016 Dilaudid (HYDROmorphone HCl PF) IVP 0.5 mg given over 1 minute(s) via site #1. Allergies verified, confirmed 5 rights and sedative warning given to the patient and patient's felt washing machine tender. IV patency established. IV site checked: no pain, redness, or swelling. IV flushed thoroughly pre- and post-medication administration. --15:06 Vernon Ramon R.N. 15:50 08/04/2016 Started bag #1 1000 mL IV Fluids IV NS (Saline); at 500 mL/hr over 2 hour(s) via site #1 via IV pump. Allergies verified and confirmed 5 rights. IV patency established. IV site checked: no pain, redness, or swelling. IV flushed thoroughly pre- and post-medication administration. --15:50 Vernon Ramon R.N. 15:50 08/04/2016 IV Fluids IV NS Discontinued: bag #1 infused. Total amount infused: 1000 mL. IV patency established. IV site checked: no pain, redness, or swelling. IV flushed thoroughly. --15:50 Vernon Ramon R.N. 16:52 08/04/2016 IV Fluids IV NS Discontinued: bag #2 infused upon discharge. Total amount infused: 500 mL. IV patency established. IV site checked: no pain, redness, or swelling. IV flushed thoroughly. --16:52 Vernon Ramon R.N. 16:49 08/04/16. BP: 102/56. HR: 68. RR: 18. O2 saturation: 97%. Temp: 98.4 F. Pain level now 0/10. 16:00 08/04/16. BP: 108/52. HR: 108. RR: 18. O2 saturation: 94% on room air. 15:00 08/04/16. BP: 106/47. HR: 73. RR: 18. O2 saturation: 93% on room air. --16:54 Vernon Ramon R.N. DISPOSITION / DISCHARGE 16:51 08/04/2016 Site #1 removed upon discharge. Catheter intact. Pressure dressing applied. --16:51 Vernon Ramon R.N. Condition at departure: improved. No learning barriers present. Discharge instructions provided and reviewed with the patient. Reviewed warnings. Reviewed medication(s). Treatments reviewed. Reviewed referrals. Patient verbalized understanding. Written instructions provided in Kyrgyz. The patient was discharged home and accompanied by spouse. She left the Emergency Department ambulatory and via private vehicle. Patient driving. --16:51 Vernon Ramon R.N. 16:49 08/04/16. BP: 102/56. HR: 68. RR: 18. O2 saturation: 97%. Temp: 98.4 F. Pain level now 0/10. --16:51 Vernon Ramon R.N. Departure time: 16:51 Aug 04 2016. --16:51 Vernon Ramon R.N. Locked/Released at 08/04/2016 19:16 by Vernon Ramon R.N.
--- NOTE | 2016-08-04 16:31 | ED ORDER SUMMARY ---
..... Patient: RIKY SCHMITT OrderSheet [facility] VisitID: [id number] [place] [address] 40y, F Registration Date/Time: 08/04/2016 ORDER SHEET Weight: 68.0 kg (stated) Allergies: ASA, Codeine, EES, Ibuprofen, PCN, Sulfa Antibiotics, Vicodin GENERAL ORDERS: CBC w Diff Urgent (14:08/04/2016 PHutchinson DO) (Ack 14:48 LNations ER Tech1) (14:56 Akhil R.N.) CMP Urgent (14:[facility]/04/2016 [facility] (Ack 14:48 LNations ER Tech1) (14:56 Akhil R.N.) UA-Culture if indicated Urgent ([facility]04[facility]2016 [facility] (Ack 14:48 LNations ER Tech1) (16:52 LWhalen R.N.) Amylase Urgent (14:08/04/2016 PHnechinson DO) (Ack 14:48 LNations ER Tech1) (14:56 Akhil R.N.) Lipase Urgent (14:08/04/2016 PHnechinson DO) (Ack 14:48 LNations ER Tech1) (14:56 Akhil R.N.) PT with INR Urgent ([facility]04[facility] (Ack 14:48 LNations ER Tech1) (14:56 Akhil R.N.) Urine Drug Screen Urgent (14:08/04/2016 [facility]) (Ack 14:48 LNations ER Tech1) (16:52 LWhalen R.N.) Urine Urgent (14:08/04/2016 PHnechinson DO) (Ack 14:48 LNations ER Tech1) (16:52 LWhalen R.N.) NPO (14:08/04/2016 [facility] (Ack 14:48 LNations ER Tech1) (15:06 LWhalen R.N.) MEDICATION ORDERS: IV FLUIDS: IV NS : initial bolus 1000 mL (1000 mL/hr), then 500 mL/hr for X2 (NOW) (14:32 08/04/2016 [facility]) (15:05 LWhalen R.N.) Zofran IV 4 mg (NOW) (14:32 08/04/2016 [facility]) (15:05 LWhalen R.N.) Reglan IV 10 mg (NOW) (14:32 08/04/2016 [facility]) (15:06 LWhalen R.N.) Benadryl IV 50 mg (NOW) (14:32 08/04/2016 [facility]) (15:02 LWhalen R.N.) Dilaudid IV 0.5 mg (HIGH ALERT MEDICATION, NOW) (14:41 08/04/2016 [facility]) (15:06 LWhalen R.N.) ORDER SHEET NOTES: [Electronically signed by Oscar Bunn DO (17:18 08/04/2016)] [Electronically signed by Vernon Ramon R.N. (19:16 08/04/2016)] [Electronically locked/signed by Vernon Ramon R.N. (19:16 08/04/2016)]
--- NOTE | 2016-08-04 16:31 | ED ORDER SUMMARY ---
..... Patient: RIKY SCHMITT OrderSheet [facility] VisitID: [id number] [place] [address] 40y, F Registration Date/Time: 08/04/2016 ORDER SHEET Weight: 68.0 kg (stated) Allergies: ASA, Codeine, EES, Ibuprofen, PCN, Sulfa Antibiotics, Vicodin GENERAL ORDERS: CBC w Diff Urgent (14:08/04/2016 PHutchinson DO) (Ack 14:48 LNations ER Tech1) (14:56 Akhil R.N.) CMP Urgent (14:08/04/2016 [facility]) (Ack 14:48 LNations ER Tech1) (14:56 Akhil R.N.) UA-Culture if indicated Urgent (14:[facility]04/2016 [facility] (Ack 14:48 LNations ER Tech1) (16:52 LWhalen R.N.) Amylase Urgent (14:08/04/2016 PHks[facility] DO) (Ack 14:48 LNations ER Tech1) (14:56 Akhil R.N.) Lipase Urgent (14:08/04/2016 PHkschinson DO) (Ack 14:48 LNations ER Tech1) (14:56 Akhil R.N.) PT with INR Urgent ([facility] (Ack 14:48 LNations ER Tech1) (14:56 Akhil R.N.) Urine Drug Screen Urgent (14:08/04/2016 [facility]) (Ack 14:48 LNations ER Tech1) (16:52 LWhalen R.N.) Urine Urgent (14:08/04/2016 PHkschinson DO) (Ack 14:48 LNations ER Tech1) (16:52 LWhalen R.N.) NPO (14:[facility]04/2016 [facility] (Ack 14:48 LNations ER Tech1) (15:06 LWhalen R.N.) MEDICATION ORDERS: IV FLUIDS: IV NS : initial bolus 1000 mL (1000 mL/hr), then 500 mL/hr for X2 (NOW) (14:32 08/04/2016 [facility]) (15:05 LWhalen R.N.) Zofran IV 4 mg (NOW) (14:32 08/04/2016 [facility]) (15:05 LWhalen R.N.) Reglan IV 10 mg (NOW) (14:32 08/04/2016 [facility]) (15:06 LWhalen R.N.) Benadryl IV 50 mg (NOW) (14:32 08/04/2016 [facility]) (15:02 LWhalen R.N.) Dilaudid IV 0.5 mg (HIGH ALERT MEDICATION, NOW) (14:41 08/04/2016 [facility]) (15:06 LWhalen R.N.) ORDER SHEET NOTES: [Electronically signed by Oscar Bunn DO (17:18 08/04/2016)] [Electronically signed by Vernon Ramon R.N. (19:16 08/04/2016)] [Electronically locked/signed by Vernon Ramon R.N. (19:16 08/04/2016)]
--- NOTE | 2016-08-04 16:31 | ED CLINICAL REPORT ---
Clinical Report - Physicians/Mid Levels [facility] [address] [place] [address] 08/04/2016 14:17 Patient: RIKY SCHMITT Time Seen: 14:30. Arrived- By private vehicle. Historian- patient and spouse. HISTORY OF PRESENT ILLNESS Chief Complaint: VOMITING. ABDOMINAL CRAMPS. This started yesterday and is still present. It was gradual in onset and has been waxing/waning. The patient has had nausea and abdominal pain. She has had vomiting. The vomiting has occurred several times. No bilious emesis, blood-tinged emesis or frankly bloody emesis. No black stools, bloody stools, constipation or history of possible bad food exposure. Has not recently been camping or on antibiotics. The illness is described as moderate. Similar symptoms previously: Recent medical care: Not recently seen/assessed. REVIEW OF SYSTEMS Last normal menstrual period now. No fever, difficulty with urination, headache, sore throat or cough. No chest pain, difficulty breathing, skin rash, jaundice or blurred vision. Denies current . The patient has had dizziness. All systems otherwise negative, except as recorded above. PAST HISTORY Primary physician: Dr Daniels ([facility]) GI Specialist: at Clinic in ?[place] PROBLEMS: Anxiety. Dehydration. Abdominal Pain. Vomiting. Murmur . SICKLE CELL TRAIT. Gastroparesis. Diabetes Mellitus Type 2 with autonomic neuropathy and gastroparesis (diet controlled) SURGERIES: Endoscopy. Knee Surgery. Tonsillectomy. SOCIAL HISTORY Smoker- current status unknown. No alcohol use or drug use. Residence: [place] she lives with spouse. Has good social support. ADDITIONAL NOTES The nursing notes have been reviewed. PHYSICAL EXAM Vital Signs: 08/04/2016 14:22 BP: 166/57. HR: 61. RR: 18. O2 saturation: 98%. Temp: 97.5 F. Pain level now: 10/10. Appearance: Alert. Oriented X3. Anxious. Patient in moderate distress. Eyes: Eyes normal inspection. No pale conjunctivae or scleral icterus. ENT: Mildly dry mucous membranes present. Pharynx normal. No pharyngeal erythema or tonsillar exudate. Neck: Normal inspection. Neck supple. CVS: Normal heart rate and rhythm. Heart sounds normal. Pulses normal. Respiratory: No respiratory distress. Breath sounds normal. Abdomen: Soft. Moderate tenderness diffusely. No mass. No rebound tenderness or guarding. Back: Normal inspection. Skin: Skin warm and dry. Normal skin color. No rash. Normal skin turgor. Extremities: Extremities exhibit normal ROM. No calf tenderness. No lower extremity edema. Neuro: Oriented X 3. No motor deficit. LABS, X-RAYS, AND EKG Laboratory Tests: CBC w Diff: (TARYN: 08/04/2016 14:45) ( MsgRcvd 08/04/2016 15:06) Final results Test Result Flag Units (Reference) WHITE BLOOD COUNT 8.9 K/uL (4.5-11.5) RED BLOOD COUNT 4.80 M/uL (4.00-5.20) HEMOGLOBIN 12.8 gm/dL (12.0-16.0) HEMATOCRIT 38.7 % (36.0-46.0) MEAN CELL VOLUME 81 fL (80-100) MEAN CORPUSCULAR HGB 27 pg (26-34) MEAN CORPUSCULAR HGB CONC 33 g/dL (31-37) RED CELL DISTRIBUTION WIDTH 17.8 H % (11.6-14.8) PLATELET COUNT 370 K/uL (150-400) NEUTROPHIL % 91.9 H % (50-75) LYMPH % 6.8 L % (25-40) MONO % 0.7 L % (3-14) EOSINOPHIL % 0.6 % (0-4) BASOPHIL % 0 % (0-2) PT with INR: (TARYN: 08/04/2016 14:45) ( MsgRcvd 08/04/2016 15:22) Final results Test Result Flag Units (Reference) INR 1.1 (0.8-1.2) Low Intensity Therapy: INR 1.5-2.0 PT range 18.5-23.1Mod.Intensity Therapy: INR 2.0-3.0 PT range 23.1-31.5High Intensity Therapy: INR 2.5-3.5 PT range 27.4-35.5High Intensity Therapy 2: INR 3.0-4.0 PT range 31.5-39.3 CMP: (TARYN: 08/04/2016 14:45) ( MsgRcvd 08/04/2016 15:28) Final results Test Result Flag Units (Reference) GLUCOSE 196 H mg/dL (70-110) BUN 8 mg/dL (7-18) CREATININE 0.8 mg/dL (0.6-1.3) Estimated GFR >60 mL/min Estimated GFR- >60 mL/min Note: Persistent reduction over 3 months in eGFR<60 mL/min/1.73 m2 defines CKD. Patients with eGFR values>=60 mL/min/1.73 m2 may also have CKD if evidence ofpersistent proteinuria. Additional information may be foundat www.kidney.org. SODIUM 141 mmol/L (136-145) POTASSIUM 4.1 mmol/L (3.5-5.1) CHLORIDE 105 mmol/L (98-107) CARBON DIOXIDE 24 mmol/L (21-32) CALCIUM 8.8 mg/dL (8.5-10.1) TOTAL PROTEIN 8.4 H g/dL (6.4-8.2) ALBUMIN 3.9 g/dL (3.3-5.0) BILIRUBIN, TOTAL 0.4 mg/dL (0.0-1.0) ALKALINE PHOSPHATASE 65 U/L (46-116) AST (SGOT) 10 L U/L (15-37) ALT (SGPT) 25 U/L (12-78) LIPASE 59 L U/L (73-393) AMYLASE 57 U/L (25-115) . Pulse Oximetry: 08/04/2016 14:22 O2 saturation: 98%. (FIO2 - room air). Interpretation: normal. PROGRESS AND PROCEDURES Course of Care: Normal Saline 1 liter IVPB given. Benadryl 50 mg IVP given. Zofran 4 mg IVP given. Reglan 10 mg IVP given. Dilaudid 0.5 mg IVP given. 16:29 08/04/16. Patient is stable. Physical exam findings are improved. Symptoms much better. 16:31 08/04/16. No fever. Nonsurgical abdominal exam. Normal serum WBC with left shift (likely due to vomiting). No signs of dehydration with normal BUN and Cr. Pt has had same symptoms many times in the past by her and her 's report. She has good access to PCP by her report 08/04/2016 16:49 BP: 102/56. HR: 68. RR: 18. O2 saturation: 97%. Temp: 98.4 F. 08/04/2016 16:49 BP: 102/56. HR: 68. RR: 18. O2 saturation: 97%. Temp: 98.4 F. No pain or nausea on discharge. Discussed use of opiates with patient and she wishes to have Rx today, but assures me she will d/w her pcp who will monitor any ongoing use of narcotic medications. Patient/family counseled. Old ED records reviewed. (9 visits to area ED's in past 12 months ([facility] x 6; [facility] x 3)). Disposition: Discharged. Condition: stable and improved. CLINICAL IMPRESSION Vomiting with nausea. Chronic, moderately well controlled type 2 diabetes with hyperglycemia and autonomic neuropathy. No coma. Essential hypertension. Chronic gastroparesis secondary to type 2 diabetes. INSTRUCTIONS Drink plenty of fluids. No alcohol until released. Avoid alcohol and NSAIDS. Examples of NSAIDS include aspirin, ibuprofen (Advil) and naproxen (Aleve). Avoid fatty, fried/greasy, lactose-containing (such as milk, cheese and ice cream), salty and spicy foods. Drink plenty of fluids. Do not smoke. Seek medical help to quit smoking. Warnings: Further evaluation is necessary in order to conduct further tests. It is very important to follow up with a physician. SEDATIVE MEDICATION: You were given sedative medication during your visit. Do not drive or operate dangerous machinery. CONTROLLED SUBSTANCE WARNINGS. GENERAL WARNINGS: Return or contact your physician immediately if your condition worsens or changes unexpectedly, if not improving as expected, or if other problems arise. Your Current Medications: CONTINUE TAKING THE FOLLOWING MEDICATIONS: Abilify 5 mg hs *. Albuterol Sulfate HFA Inhalation. Bentyl Oral : 20 mg 3x a day. Carafate Oral : 1 gm 4x a day. Prazosin HCl Oral : 2 mg 3x a day. Reglan 10mg QID*. Sennna 86mg prn *. Sertraline HCl Oral : 100 mg daily. Vistaril Oral : 50 mg 1-2 caps hs. Zofran 8 mg q 8 hrs *. Prescription Medications: Hydrocodone/APAP 5mg / 325mg: take 1-2 orally every 8 hours as needed for pain. Dispense ten (10). No refill. Zofran (orally disintegrating tablets) 4 mg: take 1-2 orally every 8 hours as needed for nausea and vomiting. Dispense twenty (20). No refill. Substitution is permissible. Phenergan suppositories 25 mg: Insert 1 rectally every 4 to 6 hours as needed for nausea or vomiting. Dispense ten (10). No refills. Substitution is permissible. Follow-up: Follow up with your doctor tomorrow. Screening today revealed the patient's blood pressure to be in the hypertensive range. The patient should follow up with a primary care provider for blood pressure management. Follow-up with: [facility], , , [address] [place] [address], , [place], Follow up tomorrow. (Electronically signed by Oscar Bunn DO 08/04/2016 17:18)
--- NOTE | 2016-08-04 16:31 | ED CLINICAL REPORT ---
Clinical Report - Physicians/Mid Levels [facility] [address] [place] [address] 08/04/2016 14:17 Patient: RIKY SCHMITT Time Seen: 14:30. Arrived- By private vehicle. Historian- patient and spouse. HISTORY OF PRESENT ILLNESS Chief Complaint: VOMITING. ABDOMINAL CRAMPS. This started yesterday and is still present. It was gradual in onset and has been waxing/waning. The patient has had nausea and abdominal pain. She has had vomiting. The vomiting has occurred several times. No bilious emesis, blood-tinged emesis or frankly bloody emesis. No black stools, bloody stools, constipation or history of possible bad food exposure. Has not recently been camping or on antibiotics. The illness is described as moderate. Similar symptoms previously: Recent medical care: Not recently seen/assessed. REVIEW OF SYSTEMS Last normal menstrual period now. No fever, difficulty with urination, headache, sore throat or cough. No chest pain, difficulty breathing, skin rash, jaundice or blurred vision. Denies current . The patient has had dizziness. All systems otherwise negative, except as recorded above. PAST HISTORY Primary physician: Dr Daniels ([facility]) GI Specialist: at Clinic in [place] PROBLEMS: Anxiety. Dehydration. Abdominal Pain. Vomiting. Murmur . SICKLE CELL TRAIT. Gastroparesis. Diabetes Mellitus Type 2 with autonomic neuropathy and gastroparesis (diet controlled) SURGERIES: Endoscopy. Knee Surgery. Tonsillectomy. SOCIAL HISTORY Smoker- current status unknown. No alcohol use or drug use. Residence: [place] she lives with spouse. Has good social support. ADDITIONAL NOTES The nursing notes have been reviewed. PHYSICAL EXAM Vital Signs: 08/04/2016 14:22 BP: 166/57. HR: 61. RR: 18. O2 saturation: 98%. Temp: 97.5 F. Pain level now: 10/10. Appearance: Alert. Oriented X3. Anxious. Patient in moderate distress. Eyes: Eyes normal inspection. No pale conjunctivae or scleral icterus. ENT: Mildly dry mucous membranes present. Pharynx normal. No pharyngeal erythema or tonsillar exudate. Neck: Normal inspection. Neck supple. CVS: Normal heart rate and rhythm. Heart sounds normal. Pulses normal. Respiratory: No respiratory distress. Breath sounds normal. Abdomen: Soft. Moderate tenderness diffusely. No mass. No rebound tenderness or guarding. Back: Normal inspection. Skin: Skin warm and dry. Normal skin color. No rash. Normal skin turgor. Extremities: Extremities exhibit normal ROM. No calf tenderness. No lower extremity edema. Neuro: Oriented X 3. No motor deficit. LABS, X-RAYS, AND EKG Laboratory Tests: CBC w Diff: (TARYN: 08/04/2016 14:45) ( MsgRcvd 08/04/2016 15:06) Final results Test Result Flag Units (Reference) WHITE BLOOD COUNT 8.9 K/uL (4.5-11.5) RED BLOOD COUNT 4.80 M/uL (4.00-5.20) HEMOGLOBIN 12.8 gm/dL (12.0-16.0) HEMATOCRIT 38.7 % (36.0-46.0) MEAN CELL VOLUME 81 fL (80-100) MEAN CORPUSCULAR HGB 27 pg (26-34) MEAN CORPUSCULAR HGB CONC 33 g/dL (31-37) RED CELL DISTRIBUTION WIDTH 17.8 H % (11.6-14.8) PLATELET COUNT 370 K/uL (150-400) NEUTROPHIL % 91.9 H % (50-75) LYMPH % 6.8 L % (25-40) MONO % 0.7 L % (3-14) EOSINOPHIL % 0.6 % (0-4) BASOPHIL % 0 % (0-2) PT with INR: (TARYN: 08/04/2016 14:45) ( MsgRcvd 08/04/2016 15:22) Final results Test Result Flag Units (Reference) INR 1.1 (0.8-1.2) Low Intensity Therapy: INR 1.5-2.0 PT range 18.5-23.1Mod.Intensity Therapy: INR 2.0-3.0 PT range 23.1-31.5High Intensity Therapy: INR 2.5-3.5 PT range 27.4-35.5High Intensity Therapy 2: INR 3.0-4.0 PT range 31.5-39.3 CMP: (TARYN: 08/04/2016 14:45) ( MsgRcvd 08/04/2016 15:28) Final results Test Result Flag Units (Reference) GLUCOSE 196 H mg/dL (70-110) BUN 8 mg/dL (7-18) CREATININE 0.8 mg/dL (0.6-1.3) Estimated GFR >60 mL/min Estimated GFR- >60 mL/min Note: Persistent reduction over 3 months in eGFR<60 mL/min/1.73 m2 defines CKD. Patients with eGFR values>=60 mL/min/1.73 m2 may also have CKD if evidence ofpersistent proteinuria. Additional information may be foundat www.kidney.org. SODIUM 141 mmol/L (136-145) POTASSIUM 4.1 mmol/L (3.5-5.1) CHLORIDE 105 mmol/L (98-107) CARBON DIOXIDE 24 mmol/L (21-32) CALCIUM 8.8 mg/dL (8.5-10.1) TOTAL PROTEIN 8.4 H g/dL (6.4-8.2) ALBUMIN 3.9 g/dL (3.3-5.0) BILIRUBIN, TOTAL 0.4 mg/dL (0.0-1.0) ALKALINE PHOSPHATASE 65 U/L (46-116) AST (SGOT) 10 L U/L (15-37) ALT (SGPT) 25 U/L (12-78) LIPASE 59 L U/L (73-393) AMYLASE 57 U/L (25-115) . Pulse Oximetry: 08/04/2016 14:22 O2 saturation: 98%. (FIO2 - room air). Interpretation: normal. PROGRESS AND PROCEDURES Course of Care: Normal Saline 1 liter IVPB given. Benadryl 50 mg IVP given. Zofran 4 mg IVP given. Reglan 10 mg IVP given. Dilaudid 0.5 mg IVP given. 16:29 08/04/16. Patient is stable. Physical exam findings are improved. Symptoms much better. 16:31 08/04/16. No fever. Nonsurgical abdominal exam. Normal serum WBC with left shift (likely due to vomiting). No signs of dehydration with normal BUN and Cr. Pt has had same symptoms many times in the past by her and her 's report. She has good access to PCP by her report 08/04/2016 16:49 BP: 102/56. HR: 68. RR: 18. O2 saturation: 97%. Temp: 98.4 F. 08/04/2016 16:49 BP: 102/56. HR: 68. RR: 18. O2 saturation: 97%. Temp: 98.4 F. No pain or nausea on discharge. Discussed use of opiates with patient and she wishes to have Rx today, but assures me she will d/w her pcp who will monitor any ongoing use of narcotic medications. Patient/family counseled. Old ED records reviewed. (9 visits to area ED's in past 12 months ([facility] x 6; [facility] x 3)). Disposition: Discharged. Condition: stable and improved. CLINICAL IMPRESSION Vomiting with nausea. Chronic, moderately well controlled type 2 diabetes with hyperglycemia and autonomic neuropathy. No coma. Essential hypertension. Chronic gastroparesis secondary to type 2 diabetes. INSTRUCTIONS Drink plenty of fluids. No alcohol until released. Avoid alcohol and NSAIDS. Examples of NSAIDS include aspirin, ibuprofen (Advil) and naproxen (Aleve). Avoid fatty, fried/greasy, lactose-containing (such as milk, cheese and ice cream), salty and spicy foods. Drink plenty of fluids. Do not smoke. Seek medical help to quit smoking. Warnings: Further evaluation is necessary in order to conduct further tests. It is very important to follow up with a physician. SEDATIVE MEDICATION: You were given sedative medication during your visit. Do not drive or operate dangerous machinery. CONTROLLED SUBSTANCE WARNINGS. GENERAL WARNINGS: Return or contact your physician immediately if your condition worsens or changes unexpectedly, if not improving as expected, or if other problems arise. Your Current Medications: CONTINUE TAKING THE FOLLOWING MEDICATIONS: Abilify 5 mg hs *. Albuterol Sulfate HFA Inhalation. Bentyl Oral : 20 mg 3x a day. Carafate Oral : 1 gm 4x a day. Prazosin HCl Oral : 2 mg 3x a day. Reglan 10mg QID*. Sennna 86mg prn *. Sertraline HCl Oral : 100 mg daily. Vistaril Oral : 50 mg 1-2 caps hs. Zofran 8 mg q 8 hrs *. Prescription Medications: Hydrocodone/APAP 5mg / 325mg: take 1-2 orally every 8 hours as needed for pain. Dispense ten (10). No refill. Zofran (orally disintegrating tablets) 4 mg: take 1-2 orally every 8 hours as needed for nausea and vomiting. Dispense twenty (20). No refill. Substitution is permissible. Phenergan suppositories 25 mg: Insert 1 rectally every 4 to 6 hours as needed for nausea or vomiting. Dispense ten (10). No refills. Substitution is permissible. Follow-up: Follow up with your doctor tomorrow. Screening today revealed the patient's blood pressure to be in the hypertensive range. The patient should follow up with a primary care provider for blood pressure management. Follow-up with: [facility], , , [address] [place] [address], , [place], Follow up tomorrow. (Electronically signed by Oscar Bunn DO 08/04/2016 17:18)
--- NOTE | 2016-08-04 19:16 | ED MED RECONCILIATION SUMMARY ---
Patient: RIKY SCHMITT Medication Reconciliation Report [facility] VisitID: [id number] [address] [place] [address] 40y, F Registration Date/Time: 08/04/2016 Weight: 68.0 kg Height/Length: 65 in. BMI: 25.0 ALLERGIES: ASA, Codeine, EES, Ibuprofen, PCN, Sulfa Antibiotics, Vicodin The patient's Home Medications are listed below: CONTINUE TAKING THE FOLLOWING MEDICATIONS: Abilify 5 mg hs Albuterol Sulfate HFA Inhalation Bentyl Oral 20 mg, 3x a day Carafate Oral 1 gm, 4x a day Prazosin HCl Oral 2 mg, 3x a day Reglan 10mg QID Sennna 86mg prn Sertraline HCl Oral 100 mg, daily Vistaril Oral 50 mg 1-2 caps hs Zofran 8 mg q 8 hrs The source(s) of the original Home Medication information: patient The following Medications were given to the patient in the Emergency Department: Benadryl [IVP] IVP 50 mg, administered: 08/04/2016 3:02:00 PM IV NS IV Fluids bolus 0, then 999 mL/hr, administered: 08/04/2016 3:05:00 PM Zofran [IVP] IVP 4 mg, administered: 08/04/2016 3:05:00 PM Reglan [IVP] IVP 10 mg, administered: 08/04/2016 3:06:00 PM Dilaudid [IVP] IVP 0.5 mg, administered: 08/04/2016 3:06:00 PM IV NS IV Fluids bolus 0, then 500 mL/hr, administered: 08/04/2016 3:50:00 PM The following Medications were prescribed to the patient: Hydrocodone/APAP 5mg / 325mg: take 1-2 orally every 8 hours as needed for pain. Dispense ten (10). No refill. -- Oscar Bunn DO Zofran (orally disintegrating tablets) 4 mg: take 1-2 orally every 8 hours as needed for nausea and vomiting. Dispense twenty (20). No refill. Substitution is permissible. -- Oscar Bunn DO Phenergan suppositories 25 mg: Insert 1 rectally every 4 to 6 hours as needed for nausea or vomiting. Dispense ten (10). No refills. Substitution is permissible. -- Oscar Bunn, DO
--- NOTE | 2016-08-04 19:16 | ED MAR SUMMARY ---
..... Medication Administration Record [facility] [address] [place] [address] Patient: RIKY SCHMITT Visit ID: [id number] 40y, F Weight: 68.0 kg Height/Length: 65 in BMI: 25 ALLERGIES: ASA, Codeine, EES, Ibuprofen, PCN, Sulfa Antibiotics, Vicodin Given 15:08/04/2016 Vernon Ramon R.N. Medication Administered: BENADRYL [IVP] (DIPHENHYDRAMINE HCL), Dose: 50 mg IVP over 2 minute(s), Site: #1 left hand. Medication Ordered: Benadryl IV 50 mg (NOW). Start 15:08/04/2016 Vernon Ramon R.N., Stop 15:08/04/2016 Vernon Ramon R.N. Medication Administered: IV NS (SALINE), Dose: IV Fluids over 1 hour(s), Rate: 999 mL/hr, Dispensed: 1000 mL bag, Site: #1 left hand. Medication Ordered: IV NS : initial bolus 1000 mL (1000 mL/hr), then 500 mL/hr for X2 (NOW). Given 15:08/04/2016 Vernon Ramon R.N. Medication Administered: ZOFRAN [IVP] (ONDANSETRON HCL), Dose: 4 mg IVP over 1 minute(s), Site: #1 left hand. Medication Ordered: Zofran IV 4 mg (NOW). Given 15:08/04/2016 Vernon Ramon R.N. Medication Administered: REGLAN [IVP] (METOCLOPRAMIDE HCL), Dose: 10 mg IVP over 1 minute(s), Site: #1 left hand. Medication Ordered: Reglan IV 10 mg (NOW). Given 15:08/04/2016 Vernon Ramon R.N. Medication Administered: DILAUDID [IVP] (HYDROMORPHONE HCL PF), Dose: 0.5 mg IVP over 1 minute(s), Site: #1 left hand. Medication Ordered: Dilaudid IV 0.5 mg (HIGH ALERT MEDICATION, NOW). Start 15:50 08/04/2016 Vernon Ramon, RRaulitoN., Stop 16:52 08/04/2016 Vernon Ramon RRaulitoN. Medication Administered: IV NS (SALINE), Dose: IV Fluids over 2 hour(s), Rate: 500 mL/hr, Dispensed: 1000 mL bag, Site: #1 left hand. Medication Ordered: IV NS : initial bolus 1000 mL (1000 mL/hr), then 500 mL/hr for X2 (NOW).
--- NOTE | 2016-08-04 19:16 | ED MED RECONCILIATION SUMMARY ---
Patient: RIKY SCHMITT Medication Reconciliation Report [facility] VisitID: [id number] [address] [place] [address] 40y, F Registration Date/Time: 08/04/2016 Weight: 68.0 kg Height/Length: 65 in. BMI: 25.0 ALLERGIES: ASA, Codeine, EES, Ibuprofen, PCN, Sulfa Antibiotics, Vicodin The patient's Home Medications are listed below: CONTINUE TAKING THE FOLLOWING MEDICATIONS: Abilify 5 mg hs Albuterol Sulfate HFA Inhalation Bentyl Oral 20 mg, 3x a day Carafate Oral 1 gm, 4x a day Prazosin HCl Oral 2 mg, 3x a day Reglan 10mg QID Sennna 86mg prn Sertraline HCl Oral 100 mg, daily Vistaril Oral 50 mg 1-2 caps hs Zofran 8 mg q 8 hrs The source(s) of the original Home Medication information: patient The following Medications were given to the patient in the Emergency Department: Benadryl [IVP] IVP 50 mg, administered: 08/04/2016 3:02:00 PM IV NS IV Fluids bolus 0, then 999 mL/hr, administered: 08/04/2016 3:05:00 PM Zofran [IVP] IVP 4 mg, administered: 08/04/2016 3:05:00 PM Reglan [IVP] IVP 10 mg, administered: 08/04/2016 3:06:00 PM Dilaudid [IVP] IVP 0.5 mg, administered: 08/04/2016 3:06:00 PM IV NS IV Fluids bolus 0, then 500 mL/hr, administered: 08/04/2016 3:50:00 PM The following Medications were prescribed to the patient: Hydrocodone/APAP 5mg / 325mg: take 1-2 orally every 8 hours as needed for pain. Dispense ten (10). No refill. -- Oscar Bunn DO Zofran (orally disintegrating tablets) 4 mg: take 1-2 orally every 8 hours as needed for nausea and vomiting. Dispense twenty (20). No refill. Substitution is permissible. -- Oscar Bunn DO Phenergan suppositories 25 mg: Insert 1 rectally every 4 to 6 hours as needed for nausea or vomiting. Dispense ten (10). No refills. Substitution is permissible. -- Oscar Bunn, DO
--- NOTE | 2016-08-04 19:16 | ED MAR SUMMARY ---
..... Medication Administration Record [facility] [address] [place] [address] Patient: RIKY SCHMITT Visit ID: [id number] 40y, F Weight: 68.0 kg Height/Length: 65 in BMI: 25 ALLERGIES: ASA, Codeine, EES, Ibuprofen, PCN, Sulfa Antibiotics, Vicodin Given 15:08/04/2016 Vernon Ramon R.N. Medication Administered: BENADRYL [IVP] (DIPHENHYDRAMINE HCL), Dose: 50 mg IVP over 2 minute(s), Site: #1 left hand. Medication Ordered: Benadryl IV 50 mg (NOW). Start 15:08/04/2016 Vernon Ramon R.N., Stop 15:08/04/2016 Vernon Ramon R.N. Medication Administered: IV NS (SALINE), Dose: IV Fluids over 1 hour(s), Rate: 999 mL/hr, Dispensed: 1000 mL bag, Site: #1 left hand. Medication Ordered: IV NS : initial bolus 1000 mL (1000 mL/hr), then 500 mL/hr for X2 (NOW). Given 15:08/04/2016 Vernon Ramon R.N. Medication Administered: ZOFRAN [IVP] (ONDANSETRON HCL), Dose: 4 mg IVP over 1 minute(s), Site: #1 left hand. Medication Ordered: Zofran IV 4 mg (NOW). Given 15:08/04/2016 Vernon Ramon R.N. Medication Administered: REGLAN [IVP] (METOCLOPRAMIDE HCL), Dose: 10 mg IVP over 1 minute(s), Site: #1 left hand. Medication Ordered: Reglan IV 10 mg (NOW). Given 15:08/04/2016 Vernon Ramon R.N. Medication Administered: DILAUDID [IVP] (HYDROMORPHONE HCL PF), Dose: 0.5 mg IVP over 1 minute(s), Site: #1 left hand. Medication Ordered: Dilaudid IV 0.5 mg (HIGH ALERT MEDICATION, NOW). Start 15:50 08/04/2016 Vernon Ramon, RRaulitoN., Stop 16:52 08/04/2016 Vernon Ramon RRaulitoN. Medication Administered: IV NS (SALINE), Dose: IV Fluids over 2 hour(s), Rate: 500 mL/hr, Dispensed: 1000 mL bag, Site: #1 left hand. Medication Ordered: IV NS : initial bolus 1000 mL (1000 mL/hr), then 500 mL/hr for X2 (NOW).
--- NOTE | 2016-08-04 19:16 | ED DISCHARGE INSTRUCTIONS ---
Patient: RIKY SCHMITT General Instructions [facility] VisitID: [id number] [place] [address] 40y, F Registration Date/Time: 08/04/2016 Vomiting with nausea. Chronic, moderately well controlled type 2 diabetes with hyperglycemia and autonomic neuropathy. No coma. Essential hypertension. Chronic gastroparesis secondary to type 2 diabetes. INSTRUCTIONS Drink plenty of fluids. No alcohol until released. Avoid alcohol and NSAIDS. Examples of NSAIDS include aspirin, ibuprofen (Advil) and naproxen (Aleve). Avoid fatty, fried/greasy, lactose-containing (such as milk, cheese and ice cream), salty and spicy foods. Drink plenty of fluids. Do not smoke. Seek medical help to quit smoking. Warnings: Further evaluation is necessary in order to conduct further tests. It is very important to follow up with a physician. SEDATIVE MEDICATION: You were given sedative medication during your visit. Do not drive or operate dangerous machinery. CONTROLLED SUBSTANCE WARNINGS. GENERAL WARNINGS: Return or contact your physician immediately if your condition worsens or changes unexpectedly, if not improving as expected, or if other problems arise. Your Current Medications: CONTINUE TAKING THE FOLLOWING MEDICATIONS: Abilify 5 mg hs *. Albuterol Sulfate HFA Inhalation. Bentyl Oral : 20 mg 3x a day. Carafate Oral : 1 gm 4x a day. Prazosin HCl Oral : 2 mg 3x a day. Reglan 10mg QID*. Sennna 86mg prn *. Sertraline HCl Oral : 100 mg daily. Vistaril Oral : 50 mg 1-2 caps hs. Zofran 8 mg q 8 hrs *. Prescription Medications: Hydrocodone/APAP 5mg / 325mg: take 1-2 orally every 8 hours as needed for pain. Dispense ten (10). No refill. Zofran (orally disintegrating tablets) 4 mg: take 1-2 orally every 8 hours as needed for nausea and vomiting. Dispense twenty (20). No refill. Substitution is permissible. Phenergan suppositories 25 mg: Insert 1 rectally every 4 to 6 hours as needed for nausea or vomiting. Dispense ten (10). No refills. Substitution is permissible. Follow-up: Follow up with your doctor tomorrow. Screening today revealed the patient's blood pressure to be in the hypertensive range. The patient should follow up with a primary care provider for blood pressure management. Follow-up with: [facility], , , [address] [place] [address], , [place], Follow up tomorrow. ADDITIONAL INFORMATION Vomiting [6Yr-Adult] Vomiting is a common symptom that may be due to different causes. These include gastroenteritis ("stomach flu"), food poisoning and gastritis. There are other more serious causes of vomiting which may be hard to diagnose early in the illness. Therefore, it is important to watch for the warning signs listed below. The main danger from repeated vomiting is dehydration. This is due to excess loss of water and minerals from the body. When this occurs, body fluids must be replaced. Home Care: If symptoms are severe, rest at home for the next 24 hours. You may use acetaminophen (Tylenol) or ibuprofen (Motrin, Advil) to control fever, unless another medicine was prescribed. [NOTE : If you have chronic liver or kidney disease or ever had a stomach ulcer or GI bleeding, talk with your doctor before using these medicines.] (Aspirin should never be used in anyone under 18 years of age who is ill with a fever. It may cause severe liver damage.) Avoid tobacco and alcohol use, which may worsen your symptoms. If medicines for vomiting were prescribed, take as directed. Once vomiting stops, then follow these guidelines: During The First 12-24 Hours follow the diet below: FRUIT JUICES: Apple, grape juice, clear fruit drinks, and electrolyte replacement drinks. BEVERAGES: Soft drinks without caffeine; mineral water (plain or flavored), decaffeinated tea and coffee. SOUPS: Clear broth, consomm and bouillon DESSERTS: Plain gelatin, popsicles and fruit juice bars. As you feel better, you may add 6-8 ounces of yogurt per day. During The Next 24 Hours you may add the following to the above: Hot cereal, plain toast, bread, rolls, crackers Plain noodles, rice, mashed potatoes, chicken noodle or rice soup Unsweetened canned fruit (avoid pineapple), bananas Limit caffeine and chocolate. No spices or seasonings except salt. During The Next 24 Hours Gradually resume a normal diet, as you feel better and your symptoms lessen. Follow Up with your doctor as advised if you are not improving over the next 2-3 days. Get Prompt Medical Attention if any of the following occur: Constant right-sided lower abdominal pain or increasing general abdominal pain Continued vomiting (unable to keep liquids down) for 24 hours Frequent diarrhea (more than 5 times a day); blood (red or black color) or mucus in diarrhea Reduced urine output or extreme thirst Weakness, dizziness or fainting Unusually drowsy or confused Fever of 100.4F (38C) oral or higher, not better with fever medication Yellow color of the eyes or skin High Blood Pressure -- To Be Confirmed [No Tx] Your blood pressure was higher today than normal. Sometimes anxiety or pain can cause a temporary rise in blood pressure that later returns to normal. If your blood pressure is high on one measurement, this does not mean that you have hypertension (a chronic illness). However, you must have your blood pressure measured again within the next few days to find out if its still high. A normal blood pressure is 120/80 or less. The first (top) number is the "systolic" pressure. The second (bottom) number is the "diastolic" pressure. Hypertension exists when either the top number is 140 or higher, OR the bottom number is 90 or higher on repeated measurements. Blood pressure in the range of 120-140 (systolic) or 80-89 (diastolic) is considered "pre-hypertension". This means your are at risk for getting hypertension. You should have regular blood pressure checks to be sure your blood pressure is not rising. Home Care: Measure your blood pressure on 3 different days and write down the results. This can be done at your doctor's office or this facility. Some pharmacies and grocery stores offer automated blood pressure machines for your use. Follow Up: If your blood pressure is "high" (over 120/80) on 2 out of 3 days, you will need to follow up with your doctor for further evaluation and treatment. DO NOT PUT THIS OFF! Untreated high blood pressure increases the risk for heart attack, also known as acute myocardial infarction, or AMI, and stroke. It is a treatable condition. Get Prompt Medical Attention if any of the following occur: Chest pain or shortness of breath Severe headache Throbbing or rushing sound in the ears Nosebleed Sudden severe abdominal pain Extreme drowsiness, confusion or fainting Dizziness or vertigo (dizziness with spinning sensation) Weakness of an arm or leg or one side of the face Difficulty with speech or vision [place] Diet A bland diet is used for patients with an upset stomach. It consists of foods that are mild and easy to digest. It is better to eat small frequent meals rather than three large meals a day. BEVERAGES OK: Fruit juices, non-caffeinated teas and coffee, non-carbonated [place]son AVOID: Carbonated beverage, caffeinated tea and coffee, all alcoholic beverages BREAD OK: Refined white, wheat or rye bread, ten or soda crackers, [place] toast, plain rolls, bagels AVOID: Whole-grain bread CEREAL OK: Refined cereals: cooked or ready to eat AVOID: Whole grain cereals and granola, or those containing bran, seeds or nuts DESSERTS OK: Peanut butter and all others except those to "avoid" AVOID: Chocolate, cocoa, coconut, popcorn, nuts, seeds, jam, marmalade FRUITS OK: Canned, cooked, frozen or fresh fruits without seeds or tough skin AVOID: Olives, skin and seeds of fruit MEATS OK: All fresh or preserved meat, fish and fowl AVOID: Any that are prepared with those spices to "avoid" CHEESE & EGGS OK: Eggs, cottage cheese, cream cheese, other cheeses AVOID: All cheeses made with those spices to "avoid" POTATOES & PASTA OK: Potato, rice, macaroni, noodles, spaghetti AVOID: None SOUPS OK: All soups without heavy seasoning AVOID: Soups made with those spices to "avoid" VEGETABLES OK: Canned, cooked, fresh or frozen mildly flavored vegetables without seeds, skins or coarse fiber AVOID: Vegetables prepared with those spices to "avoid"; skin and seeds of vegetables and those with coarse fiber SPICES OK: Salt, lemon and knik juice, vinegar, all extracts, alethea, cinnamon, thyme, mace, allspice, paprika AVOID: [place] powder, cloves, pepper, seed spices, garlic, gravy pickles, highly seasoned salad dressings How To Quit Smoking Smoking is one of the hardest habits to break. About half of all those who have ever smoked have been able to quit, and most of those (about 70%) who still smoke want to quit. Here are some of the best ways to stop smoking. Keep Trying: It takes most smokers about 8 tries before they are finally able to fully quit. So, the more often you try and fail, the better your chance of quitting the next time! So, don't give up! Go Cold [place]: Most ex-smokers quit cold turkey. Trying to cut back gradually doesn't seem to work as well, perhaps because it continues the smoking habit. Also, it is possible to fool yourself by inhaling more while smoking fewer cigarettes. This results in the same amount of nicotine in your body! Get Support: Support programs can make an important difference, especially for the heavy smoker. These groups offer lectures, methods to change your behavior and peer support. Call the free national Quitline for more information. 605-CFZT-WVP (274-463-7023). Low-cost or free programs are offered by many hospitals, local chapters of the [place] [employer] (762-721-0931) and the [place] [employer] (194-012-9006). Support at home is important too. Non-smokers can help by offering praise and encouragement. If the smoker fails to quit, encourage them to try again! Ksls-Pww-Aacsxvf Medicines: For those who can't quit on their own, Nicotine Replacement Therapy (NRT) may make quitting much easier. Certain aids such as the nicotine patch, gum and lozenge are available without a prescription. However, it is best to use these under the guidance of your doctor. The skin patch provides a steady supply of nicotine to the body. Nicotine gum and lozenge gives temporary bursts of low levels of nicotine. Both methods take the edge off the craving for cigarettes. WARNING: If you feel symptoms of nicotine overdose, such as nausea, vomiting, dizziness, weakness, or fast heartbeat, stop using these and see your doctor. Prescription Medicines: After evaluating your smoking patterns and prior attempts at quitting, your doctor may offer a prescription medicine such as bupropion (Zyban, Wellbutrin), varenicline (Chantix, Champix), a niocotine inhaler or nasal spray. Each has its unique advantage and side effects which your doctor can review with you. Health Benefits Of Quitting: The benefits of quitting start right away and keep improving the longer you go without smokin minutes: blood pressure and pulse return to normal 8 hours: oxygen levels return to normal 2 days: ability to smell and taste begins to improve as damaged nerves start to regrow 2-3 weeks: circulation and lung function improves 1-9 months: decreased cough, congestion and shortness of breath; less tired 1 year: risk of heart attack decreases by half 5 years: risk of lung cancer decreases by half; risk of stroke becomes the same as a non-smoker For information about how to quit smoking, visit the following links: National Cancer [place] , Clearing the Air, Quit Smoking Today - an online booklet. http://www.smokefree.gov/pubs/clearing_the_air.pdf Smokefree.gov http://smokefree.gov/ QuitNet http://www.quitnet.com/ Hydrocodone Bitartrate, Acetaminophen Oral tablet What is this medicine? ACETAMINOPHEN; HYDROCODONE (a set a UBALDO alex fen; joser aul droe KOE done) is a pain reliever. It is used to treat mild to moderate pain. How should I use this medicine? Take this medicine by mouth. Swallow it with a full glass of water. Follow the directions on the prescription label. If the medicine upsets your stomach, take the medicine with food or milk. Do not take more than you are told to take. Talk to your special delivery worker regarding the use of this medicine in children. This medicine is not approved for use in children. What side effects may I notice from receiving this medicine? Side effects that you should report to your doctor or health home care specialist as soon as possible: allergic reactions like skin rash, itching or hives, swelling of the face, lips, or tongue breathing problems confusion feeling faint or lightheaded, falls stomach pain yellowing of the eyes or skin Side effects that usually do not require medical attention (report to your doctor or health home care specialist if they continue or are bothersome): nausea, vomiting stomach upset What may interact with this medicine? alcohol antihistamines isoniazid medicines for depression, anxiety, or psychotic disturbances medicines for sleep muscle relaxants naltrexone narcotic medicines (opiates) for pain phenobarbital ritonavir tramadol What if I miss a dose? If you miss a dose, take it as soon as you can. If it is almost time for your next dose, take only that dose. Do not take double or extra doses. Where should I keep my medicine? Keep out of the reach of children. This medicine can be abused. Keep your medicine in a safe place to protect it from theft. Do not share this medicine with anyone. Selling or giving away this medicine is dangerous and against the law. Store at room temperature between 15 and 30 degrees C (59 and 86 degrees F). Protect from light. Keep container tightly closed. Throw away any unused medicine after the expiration date. Discard unused medicine and used packaging carefully. Pets and children can be harmed if they find used or lost packages. What should I tell my health care provider before I take this medicine? They need to know if you have any of these conditions: brain tumor Crohn's disease, inflammatory bowel disease, or ulcerative colitis drink more than 3 alcohol-containing drinks per day drug abuse or addiction head injury heart or circulation problems kidney disease or problems going to the bathroom liver disease lung disease, asthma, or breathing problems an unusual or allergic reaction to acetaminophen, hydrocodone, other opioid analgesics, other medicines, foods, dyes, or preservatives or trying to get breast-feeding What should I watch for while using this medicine? Tell your doctor or health home care specialist if your pain does not go away, if it gets worse, or if you have new or a different type of pain. You may develop tolerance to the medicine. Tolerance means that you will need a higher dose of the medicine for pain relief. Tolerance is normal and is expected if you take the medicine for a long time. Do not suddenly stop taking your medicine because you may develop a severe reaction. Your body becomes used to the medicine. This does NOT mean you are addicted. Addiction is a behavior related to getting and using a drug for a non-medical reason. If you have pain, you have a medical reason to take pain medicine. Your doctor will tell you how much medicine to take. If your doctor wants you to stop the medicine, the dose will be slowly lowered over time to avoid any side effects. You may get drowsy or dizzy when you first start taking the medicine or change doses. Do not drive, use machinery, or do anything that may be dangerous until you know how the medicine affects you. Stand or sit up slowly. There are different types of narcotic medicines (opiates) for pain. If you take more than one type at the same time, you may have more side effects. Give your health care provider a list of all medicines you use. Your doctor will tell you how much medicine to take. Do not take more medicine than directed. Call emergency for help if you have problems breathing. The medicine will cause constipation. Try to have a bowel movement at least every 2 to 3 days. If you do not have a bowel movement for 3 days, call your doctor or health home care specialist. Too much acetaminophen can be very dangerous. Do not take Tylenol (acetaminophen) or medicines that contain acetaminophen with this medicine. Many non-prescription medicines contain acetaminophen. Always read the labels carefully. Ondansetron Oral disintegrating tablet What is this medicine? ONDANSETRON (on SHELIA se romain) is used to treat nausea and vomiting caused by chemotherapy. It is also used to prevent or treat nausea and vomiting after surgery. How should I use this medicine? These tablets are made to dissolve in the mouth. Do not try to push the tablet through the foil backing. With dry hands, peel away the foil backing and gently remove the tablet. Place the tablet in the mouth and allow it to dissolve, then swallow. While you may take these tablets with water, it is not necessary to do so. Talk to your special delivery worker regarding the use of this medicine in children. Special care may be needed. What side effects may I notice from receiving this medicine? Side effects that you should report to your doctor or health home care specialist as soon as possible: allergic reactions like skin rash, itching or hives, swelling of the face, lips, or tongue breathing problems dizziness fast or irregular heartbeat feeling faint or lightheaded, falls fever and chills swelling of the hands and feet tightness in the chest Side effects that usually do not require medical attention (report to your doctor or health home care specialist if they continue or are bothersome): constipation or diarrhea headache What may interact with this medicine? Do not take this medicine with any of the following medications: -apomorphine -cisapride -dofetilide -dronedarone -pimozide -thioridazine -ziprasidone This medicine may also interact with the following medications: -carbamazepine -phenytoin -rifampicin -tramadol -other medicines that prolong the QT interval (cause an abnormal heart rhythm) What if I miss a dose? If you miss a dose, take it as soon as you can. If it is almost time for your next dose, take only that dose. Do not take double or extra doses. Where should I keep my medicine? Keep out of the reach of children. Store between 2 and 30 degrees C (36 and 86 degrees F). Throw away any unused medicine after the expiration date. What should I tell my health care provider before I take this medicine? They need to know if you have any of these conditions: heart disease history of irregular heartbeat liver disease low levels of magnesium or potassium in the blood an unusual or allergic reaction to ondansetron, granisetron, other medicines, foods, dyes, or preservatives or trying to get breast-feeding What should I watch for while using this medicine? Check with your doctor or health home care specialist as soon as you can if you have any sign of an allergic reaction. Promethazine Hydrochloride Rectal suppository What is this medicine? PROMETHAZINE (proe METH a zeen) is an antihistamine. It is used to treat allergic reactions and to treat or prevent nausea and vomiting from illness or motion sickness. It is also used to make you sleep before surgery, and to help treat pain or nausea after surgery. How should I use this medicine? This medicine is for rectal use only. Do not take by mouth. Wash your hands before and after use. Take off the foil wrapping. Wet the tip of the suppository with cold tap water to make it easier to use. Lie on your side with your lower leg straightened out and your upper leg bent forward toward your stomach. Lift upper buttock to expose the rectal area. Apply gentle pressure to insert the suppository completely into the rectum, pointed end first. Hold buttocks together for a few seconds. Remain lying down for about 15 minutes to avoid having the suppository come out. Do not use more often than directed. Talk to your special delivery worker regarding the use of this medicine in children. Special care may be needed. This medicine should not be given to infants and children younger than 2 years old. What side effects may I notice from receiving this medicine? Side effects that you should report to your doctor or health home care specialist as soon as possible: blurred vision irregular heartbeat, palpitations or chest pain muscle or facial twitches pain or difficulty passing urine seizures skin rash slowed or shallow breathing unusual bleeding or bruising yellowing of the eyes or skin Side effects that usually do not require medical attention (report to your doctor or health home care specialist if they continue or are bothersome): headache nightmares, agitation, nervousness, excitability, not able to sleep (these are more likely in children) stuffy nose What may interact with this medicine? Do not take this medicine with any of the following medications: medicines called MAO Inhibitors like Nardil, Parnate, Marplan, Eldepryl other phenothiazines like trimethobenzamide This medicine may also interact with the following medications: barbiturates such as phenobarbital bromocriptine certain antidepressants certain antihistamines used in allergy or cold medicines epinephrine levodopa medicines for sleep medicines for mental problems and psychotic disturbances medicines for movement abnormalities as in Parkinson's disease, or for gastrointestinal problems muscle relaxants prescription pain medicines What if I miss a dose? If you miss a dose, use it as soon as you can. If it is almost time for your next dose, use only that dose. Do not use double doses. Where should I keep my medicine? Keep out of the reach of children. Store in a refrigerator between 2 and 8 degrees C (36 and 46 degrees F). Throw away any unused medicine after the expiration date. What should I tell my health care provider before I take this medicine? They need to know if you have any of these conditions: glaucoma high blood pressure or heart disease kidney disease liver disease lung or breathing disease, like asthma prostate trouble pain or difficulty passing urine seizures an unusual or allergic reaction to promethazine or phenothiazines, other medicines, foods, dyes, or preservatives or trying to get breast-feeding What should I watch for while using this medicine? Tell your doctor or health home care specialist if your symptoms do not start to get better in 1 to 2 days. You may get drowsy or dizzy. Do not drive, use machinery, or do anything that needs mental alertness until you know how this medicine affects you. To reduce the risk of dizzy or fainting spells, do not stand or sit up quickly, especially if you are an older patient. Alcohol may increase dizziness and drowsiness. Avoid alcoholic drinks. Your mouth may get dry. Chewing sugarless gum or sucking hard candy, and drinking plenty of water may help. Contact your doctor if the problem does not go away or is severe. This medicine may cause dry eyes and blurred vision. If you wear contact lenses you may feel some discomfort. Lubricating drops may help. See your eye doctor if the problem does not go away or is severe. This medicine can make you more sensitive to the sun. Keep out of the sun. If you cannot avoid being in the sun, wear protective clothing and use sunscreen. Do not use sun lamps or tanning beds/booths. If you are diabetic, check your blood-sugar levels regularly. You have been given the following additional information: Vomiting (6Y-Adult) Hypertension, To Be Confirmed Diet, [place] (Adult) Smoking Cessation Hydrocodone Bitartrate, Acetaminophen Oral tablet Ondansetron Oral disintegrating tablet Promethazine Hydrochloride Rectal suppository (Electronically signed by Oscar Bunn DO 08/04/2016 17:18)
== END 2016-08-04 17:00 | disposition home or self-care (01) ==
LOC: ED SRH 14:16
DX: R11.2 Nausea with vomiting, unspecified (principal); E11.65 Type 2 diabetes mellitus with hyperglycemia; E11.43 Type 2 diabetes mellitus with diabetic autonomic (poly)neuropathy; K31.84 Gastroparesis; I10 Essential (primary) hypertension
CPT/HCPCS: 90100; 92235; 92530; 94060; 95059

== ENCOUNTER 2016-08-06 18:39 | Emergency (ER) | payer BC ==
--- NOTE | 2016-08-06 21:56 | ED NURSING NOTES ---
Clinical Report - Nurses [facility] [address] [place] [address] 08/06/2016 18:38 Patient: RIKY SCHMITT TRIAGE Triage time 1840. Acuity: LEVEL 3. Chief Complaint: ABDOMINAL PAIN and NAUSEA and ("I'm having a flair up of gastroparisis" was here 2 days ago, but getting worse). --18:49 Ani Baker R.N. 18:40 08/06/16. BP: 128/88. HR: 106. RR: 20. O2 saturation: 98%. Temp: 98.5 F. Pain level now: 11/12. --18:49 Ani Baker R.N. Weight: 68 kg stated. Height/Length: 65 inches Per Patient. BMI: 25. --18:45 Ani Baker R.N. Medications Abilify 5 mg hs . Albuterol Sulfate HFA Inhalation. Bentyl Oral 20 mg, 3x a day. Carafate Oral 1 gm, 4x a day. Prazosin HCl Oral 2 mg, 3x a day. Reglan 10mg QID. Sennna 86mg prn . Sertraline HCl Oral 100 mg, daily. Vistaril Oral 50 mg 1-2 caps hs . Zofran 8 mg q 8 hrs . --18:48 Ani Baker R.N. Vicodin 5mg every 4-6 hours- last dose 1600. --18:49 Ani Baker R.N. Phenergan suppos 25mg last dose 1600. --18:49 Ani Baker R.N. zofran 4 mg ODT last dose 1500. --18:49 Ani Baker R.N. Allergies ASA. Codeine. EES. Ibuprofen. PCN. Sulfa Antibiotics. Vicodin. --18:48 Ani Baker R.N. History Arrived by private vehicle. Historian: patient. Accompanied by family. Primary physician (eber). The patient has had nausea, vomiting and abdominal pain. No diarrhea or constipation. PAST MEDICAL HX: Last normal menstrual period- now. SOCIAL HX: Light tobacco smoker (cigarette)- less than 1/2 a pack per day. No alcohol use or drug use. --18:49 Ani Baker R.N. PROBLEMS: Diabetes Mellitus. Hypertension. Dehydration. Abdominal Pain. Vomiting. Murmur . SICKLE CELL TRAIT. Gastroparesis. Diabetes Mellitus Type 2. --18:46 Ani Baker R.N. ADDITIONAL SURGERIES: Endoscopy. Knee Surgery. Tonsillectomy. --18:46 Ani Baker R.N. Interventions ID band on patient. To treatment room. --18:49 Ani Baker R.N. PHYSICAL ASSESSMENT 18:40. To room via wheelchair. Patient gowned. GENERAL / NEURO / PSYCH: Alert. Oriented X 4. Appears anxious and in distress. RESPIRATORY: Respirations not labored. CVS: Capillary refill less than 2 seconds. GI / : The patient has had nausea. Abdominal tenderness. SKIN: Skin is warm and dry. --19:12 Ani Baker R.N. NURSING PROGRESS NOTES 18:40. Patient gowned. Head of bed elevated. Reassurance given. Patient identifiers checked. Call light placed in reach. Side rails up. Bed placed in lowest position. Patient ready for evaluation- chart flagged. --18:50 Ani Baker R.N. 19:02 08/06/2016 Two (2) unsuccessful IV access attempts. --19:12 Ani Baker R.N. 19:12 08/06/2016 Started bag #1 1000 mL IV Fluids IV NS (Saline); at 1000 mL/hr over 1 hour(s) via site #1 via IV pump. IV patency established. IV site checked: no pain, redness, or swelling. IV flushed thoroughly pre- and post-medication administration. --19:29 Ani Baker R.N. 19:13 08/06/2016 Site #1 started via IV in the left wrist with an 22g angiocath, with aseptic technique and good blood return; one attempt. Blood drawn: rainbow set. Labeled in the presence of the patient and sent to the lab. Saline lock flushed with saline (by MARIAH Lozada). --19:28 Ani Baker R.N. 19:18 08/06/2016 Zofran (Ondansetron HCl) IVP 4 mg given over 1 minute(s) via site #1. IV patency established. IV site checked: no pain, redness, or swelling. IV flushed thoroughly pre- and post-medication administration. IVP given by RN. --19:33 Ani Baker R.N. 19:19 08/06/2016 HALDOL (Haloperidol Lactate) IVP 3 mg given over 1 minute(s) via site #1. Sedative warning given to the patient and patient's family. IV patency established. IV site checked: no pain, redness, or swelling. IV flushed thoroughly pre- and post-medication administration. IVP given by RN. --19:33 Ani Baker R.N. 19:20 08/06/2016 Reglan (Metoclopramide HCl) IVP 10 mg given over 2 minute(s) via site #1. IV patency established. IV site checked: no pain, redness, or swelling. IV flushed thoroughly pre- and post-medication administration. IVP given by RN. --19:34 Ani Baker R.N. 19:22 08/06/2016 Benadryl (DiphenhydrAMINE HCl) IVP 25 mg given over 1 minute(s) via site #1. IV patency established. IV site checked: no pain, redness, or swelling. IV flushed thoroughly pre- and post-medication administration. IVP given by RN. --19:34 Ani Baker R.N. 20:20 pt resting quietly,stgates pain is improved--is now 08/12. --20:38 Ani Baker R.N. 20:20 08/06/16. BP: 106/54. HR: 67. RR: 18. O2 saturation: 96% on room air. Temp: 98.9 F. Pain level now: 08/12. --20:38 Ani Baker R.N. 20:20 08/06/2016 IV Fluids IV NS Bag Change: bag #1 infused. Total amount infused: 1000. STARTED bag #2 (1000 mL) at 1000 mL/hr via IV pump. IV patency established. IV site checked: no pain, redness, or swelling. IV flushed thoroughly. --20:39 Ani Baker R.N. 20:50. ( Pt ambulated to bathroom, steady on feet UA obtained and sent to lab). --21:00 Ani Baker R.N. 21:05 08/06/16. BP: 108/55. HR: 58. RR: 18. O2 saturation: 98%. Temp: deferred. Pain level now: 08/12. --21:07 Ani Baker R.N. 21:35 08/06/2016 IV Fluids IV NS Discontinued: bag #2 infused. Total amount infused: 1000 mL. IV patency established. IV site checked: no pain, redness, or swelling. IV flushed thoroughly. (IV site converted to saline lock). --21:45 Ani Baker R.N. 21:45 08/06/2016 PHENERGAN (Promethazine HCl) IVP 12.5 mg given over 1 minute(s) via site #1. IV patency established. IV site checked: no pain, redness, or swelling. IV flushed thoroughly pre- and post-medication administration. IVP given by RN. --21:53 Ani Baker R.N. 21:35. ( Pt given phenergan and po challenge). --21:53 Ani Baker R.N. 21:58 08/06/16. BP: 114/77. HR: 74. RR: 18. O2 saturation: 100% on room air. Temp: deferred. Pain level now: 05/15. --21:58 Ani Baker R.N. 22:08/06/2016 Site #1 removed upon discharge. Bandaid applied. --22:04 Ani Baker R.N. DISPOSITION / DISCHARGE 22:08/06/16. Condition at departure: improved and stable. No learning barriers present. Discharge instructions provided and reviewed with the patient and spouse. Reviewed medication(s) (zofran, phenergan). Patient and spouse verbalized understanding. Written instructions provided in Maori. The patient was discharged home and accompanied by spouse. She left the Emergency Department ambulatory and via private vehicle. Spouse driving. --22:05 Ani Baker R.N. 21:59 08/06/16. BP: 116/74. HR: 74. RR: 18. O2 saturation: 100%. Temp: deferred. Pain level now: 05/15. --22:05 Ani Baker R.N. Departure time: 2209. --22:19 Ani Baker R.N. Locked/Released at 08/06/2016 22:20 by Ani Baker R.N.
--- NOTE | 2016-08-06 21:56 | ED CLINICAL REPORT ---
Clinical Report - Physicians/Mid Levels [facility] [address] [place] [address] 08/06/2016 18:38 Patient: RIKY SCHMITT Time Seen: 19:11 Aug 06 2016. Arrived- By private vehicle. Historian- patient. HISTORY OF PRESENT ILLNESS Chief Complaint: ABDOMINAL PAIN. This started today and is still present. It is described as "pain" and it is described as located in the upper abdomen and in the periumbilical area. The patient has had nausea and vomiting. (Patient here in the emergency department complaining of the same pain she's been having, she was seen previously on the august, reports having difficult time with taking any by mouth at home, nausea and vomiting. Denies any diarrhea. History of similar with gastroparesis, patient is scheduled to see her gastroenterology specialist August 14 in [place]. No sick contacts. No hematochezia.). REVIEW OF SYSTEMS No constipation, black stools, difficulty with urination, pain with urination or urinary frequency. No fever, headache, sore throat, blurred vision or chest pain. No chills. All systems otherwise negative, except as recorded above. PAST HISTORY Problems: Diabetes Mellitus. Hypertension. Dehydration. Abdominal Pain. Vomiting. Murmur . SICKLE CELL TRAIT. Gastroparesis. Diabetes Mellitus Type 2. Additional Surgeries: Endoscopy. Knee Surgery. Tonsillectomy. Medications: zofran 4 mg ODT last dose 1500. Phenergan suppos 25mg last dose 1600. Vicodin 5mg every 4-6 hours- last dose 1600. Abilify 5 mg hs . Albuterol Sulfate HFA Inhalation. Bentyl Oral 20 mg, 3x a day. Carafate Oral 1 gm, 4x a day. Prazosin HCl Oral 2 mg, 3x a day. Reglan 10mg QID. Sennna 86mg prn . Sertraline HCl Oral 100 mg, daily. Vistaril Oral 50 mg 1-2 caps hs . Zofran 8 mg q 8 hrs . Allergies: ASA. Codeine. EES. Ibuprofen. PCN. Sulfa Antibiotics. Vicodin. SOCIAL HISTORY Smoker- current status unknown. No alcohol use or drug use. ADDITIONAL NOTES The nursing notes have been reviewed. PHYSICAL EXAM Vital Signs: 08/06/2016 18:40 BP: 128/88. HR: 106. RR: 20. O2 saturation: 98%. Temp: 98.5 F. Pain level now: 8/10. Appearance: Alert. Eyes: Eyes normal inspection. ENT: Ears normal. Nose normal. No pharyngeal erythema or tonsillar exudate. Neck: Normal inspection. CVS: Normal heart rate and rhythm. Heart sounds normal. No cardiac murmur. Respiratory: No respiratory distress. Breath sounds normal. Abdomen: Soft. No abdominal tenderness. Back: Normal inspection. No CVA tenderness. Skin: Skin warm. Normal skin color. Neuro: Oriented X 3. No motor deficit. LABS, X-RAYS, AND EKG Laboratory Tests: UA-Culture if indicated: (TARYN: 08/06/2016 21:00) ( [facility] 08/06/2016 22:16) Final results Test Result Flag Units (Reference) URINE COLOR YELLOW URINE APPEARANCE CLEAR URINE GLUCOSE NEGATIVE (NEGATIVE) URINE BILIRUBIN NEGATIVE (NEGATIVE) URINE KETONE 3+ (NEGATIVE) URINE SPECIFIC GRAVITY 1.015 (1.010-1.030) URINE PH 6.0 (5.0-8.0) URINE PROTEIN TRACE (NEGATIVE) URINE UROBILINOGEN 1.0 EU/dL (0.2-1.0) URINE NITRITE NEGATIVE (NEGATIVE) URINE BLOOD 2+ (NEGATIVE) URINE LEUK ESTERASE NEGATIVE (NEGATIVE) URINE RBC 0-1 rbc/hpf (0-1) URINE WBC 0-1 wbc/hpf (0-1) URINE EPITHELIAL CELLS 0-1 EPI/hpf (0-5) URINE BACTERIA FEW (1+) (NONE SEEN) 2+ MUCOUS URINE COMMENT CULT NOT INDICATED URINE CULTURES ARE SET-UP BASED ON THE FOLLOWING CRITERIA:POSITIVE NITRITEPOSITIVE LEUKOCYTE ESTERASEGREATER THAN 10 WHITE BLOOD CELLSMODERATE (2+) OR GREATER BACTERIA Urine: (TARYN: 08/06/2016 21:00) ( [facility] 08/06/2016 21:38) Final results Test Result Flag Units (Reference) URINE NEGATIVE CBC w Diff: (TARYN: 08/06/2016 19:15) ( MsgRcvd 08/06/2016 19:29) Final results Test Result Flag Units (Reference) WHITE BLOOD COUNT 8.4 K/uL (4.5-11.5) RED BLOOD COUNT 4.65 M/uL (4.00-5.20) HEMOGLOBIN 12.3 gm/dL (12.0-16.0) HEMATOCRIT 37.9 % (36.0-46.0) MEAN CELL VOLUME 82 fL (80-100) MEAN CORPUSCULAR HGB 27 pg (26-34) MEAN CORPUSCULAR HGB CONC 33 g/dL (31-37) RED CELL DISTRIBUTION WIDTH 17.6 H % (11.6-14.8) PLATELET COUNT 382 K/uL (150-400) NEUTROPHIL % 83.3 H % (50-75) LYMPH % 12.9 L % (25-40) MONO % 3.5 % (3-14) EOSINOPHIL % 0.2 % (0-4) BASOPHIL % 0.1 % (0-2) CMP: (TARYN: 08/06/2016 19:15) ( MsgRcvd 08/06/2016 19:48) Final results Test Result Flag Units (Reference) GLUCOSE 114 H mg/dL (70-110) BUN 10 mg/dL (7-18) CREATININE 0.8 mg/dL (0.6-1.3) Estimated GFR >60 mL/min Estimated GFR- >60 mL/min Note: Persistent reduction over 3 months in eGFR<60 mL/min/1.73 m2 defines CKD. Patients with eGFR values>=60 mL/min/1.73 m2 may also have CKD if evidence ofpersistent proteinuria. Additional information may be foundat www.kidney.org. SODIUM 143 mmol/L (136-145) POTASSIUM 4.0 mmol/L (3.5-5.1) CHLORIDE 104 mmol/L (98-107) CARBON DIOXIDE 26 mmol/L (21-32) CALCIUM 8.7 mg/dL (8.5-10.1) TOTAL PROTEIN 8.2 g/dL (6.4-8.2) ALBUMIN 3.8 g/dL (3.3-5.0) BILIRUBIN, TOTAL 0.5 mg/dL (0.0-1.0) ALKALINE PHOSPHATASE 63 U/L (46-116) AST (SGOT) 16 U/L (15-37) ALT (SGPT) 28 U/L (12-78) . PROGRESS AND PROCEDURES Course of Care: Review of recent records including multiple ER visits, last visit on 04 August. Patient received IV fluid in the emergency department, IV Reglan, Haldol which improved her symptoms. Patient now in no distress. Stable. Patient to follow up outpatient. No signs of acute surgical abdomen. Patient has a specialty follow-up mid August. 08/06/2016 18:40 BP: 128/88. HR: 106. RR: 20. O2 saturation: 98%. Temp: 98.5 F. Pain level now: 8/10. Patient is stable. Symptoms better. Patient/family counseled. Disposition: Discharged. CLINICAL IMPRESSION Vomiting with nausea and volume depletion. Chronic abdominal pain of unknown cause. Well controlled type 2 diabetes (diet controlled). INSTRUCTIONS Drink plenty of fluids. Warnings: Further evaluation is necessary. Prescription Medications: Zofran (orally disintegrating tablets) 4 mg: take 1 orally every 6 hours for 3 days as needed for nausea. No refill. Substitution is permissible. Phenergan 12.5 mg suppositories: insert 1 rectally every 8 hours as needed for nausea. Dispense ten (10). No refill. Substitution is permissible Follow-up: Follow up with your doctor. (Electronically signed by Fina Morillo P.A.-C 08/06/2016 22:40)
--- NOTE | 2016-08-06 21:56 | ED ORDER SUMMARY ---
..... Patient: RIKY SCHMITT OrderSheet [facility] VisitID: [id number] [place] [address] 40y, F Registration Date/Time: 08/06/2016 ORDER SHEET Weight: 68.0 kg (stated) Allergies: ASA, Codeine, EES, Ibuprofen, PCN, Sulfa Antibiotics, Vicodin GENERAL ORDERS: CBC w Diff Urgent (18:50 08/06/2016 EKoroleva P.A.-C) (Ack 18:53 IJurca ER Tech1) (19:29 DDean R.N.) CMP Urgent (18:50 08/06/2016 EKoroleva P.A.-C) (Ack 18:53 IJurca ER Tech1) (19:29 DDean R.N.) UA-Culture if indicated Urgent (18:50 08/06/2016 EKoroleva P.A.-C) (Ack 18:53 IJurca ER Tech1) (21:06 DDean R.N.) Urine Urgent (18:50 08/06/2016 EKoroleva P.A.-C) (Ack 18:53 IJurca ER Tech1) (21:06 DDean R.N.) Vitals (20:22 08/06/2016 EKoroleva P.A.-C) (20:37 DDean R.N.) MEDICATION ORDERS: Phenergan IV 12.5 mg (HIGH ALERT MEDICATION, NOW) (21:33 08/06/2016 EKoroleva P.A.-C) (Ack 21:43 DDean R.N.) (21:53 DDean R.N.) IV FLUIDS: IV NS : initial bolus 1000 mL (1000 mL/hr), then 1000 mL/hr for X1 (NOW); Mekhi (18:50 08/06/2016 EKoroleva P.A.-C) (Ack 18:56 DDean R.N.) (19:29 DDean R.N.) Reglan IV 10 mg (NOW) (18:50 08/06/2016 EKoroleva P.A.-C) (Ack 18:56 DDean R.N.) (19:34 DDean R.N.) Benadryl IV 25 mg (NOW) (18:50 08/06/2016 Diony Castillo.Emma-C) (Ack 18:56 DDean R.N.) (19:34 DDean R.N.) Zofran IV 4 mg (NOW) (18:50 08/06/2016 Diony Yoon-C) (Ack 18:56 DDean R.N.) (19:33 DDean R.N.) Haldol IV 3 mg (HIGH ALERT MEDICATION, NOW) (18:50 08/06/2016 Diony Painter) (Ack 18:56 DDean R.N.) (19:33 DDean R.N.) ORDER SHEET NOTES: [Electronically signed by Ani Baker R.N. (22:20 08/06/2016)] [Electronically signed by Fina Morillo P.A.-C (22:40 08/06/2016)] [Electronically locked/signed by Ani Baker R.N. (22:20 08/06/2016)]
--- NOTE | 2016-08-06 21:56 | ED ORDER SUMMARY ---
..... Patient: RIKY SCHMITT OrderSheet [facility] VisitID: [id number] [place] [address] 40y, F Registration Date/Time: 08/06/2016 ORDER SHEET Weight: 68.0 kg (stated) Allergies: ASA, Codeine, EES, Ibuprofen, PCN, Sulfa Antibiotics, Vicodin GENERAL ORDERS: CBC w Diff Urgent (18:50 08/06/2016 EKoroleva P.A.-C) (Ack 18:53 IJurca ER Tech1) (19:29 DDean R.N.) CMP Urgent (18:50 08/06/2016 EKoroleva P.A.-C) (Ack 18:53 IJurca ER Tech1) (19:29 DDean R.N.) UA-Culture if indicated Urgent (18:50 08/06/2016 EKoroleva P.A.-C) (Ack 18:53 IJurca ER Tech1) (21:06 DDean R.N.) Urine Urgent (18:50 08/06/2016 EKoroleva P.A.-C) (Ack 18:53 IJurca ER Tech1) (21:06 DDean R.N.) Vitals (20:22 08/06/2016 EKoroleva P.A.-C) (20:37 DDean R.N.) MEDICATION ORDERS: Phenergan IV 12.5 mg (HIGH ALERT MEDICATION, NOW) (21:33 08/06/2016 EKoroleva P.A.-C) (Ack 21:43 DDean R.N.) (21:53 DDean R.N.) IV FLUIDS: IV NS : initial bolus 1000 mL (1000 mL/hr), then 1000 mL/hr for X1 (NOW); Mekhi (18:50 08/06/2016 EKoroleva P.A.-C) (Ack 18:56 DDean R.N.) (19:29 DDean R.N.) Reglan IV 10 mg (NOW) (18:50 08/06/2016 EKoroleva P.A.-C) (Ack 18:56 DDean R.N.) (19:34 DDean R.N.) Benadryl IV 25 mg (NOW) (18:50 08/06/2016 Diony Castillo.Emma-C) (Ack 18:56 DDean R.N.) (19:34 DDean R.N.) Zofran IV 4 mg (NOW) (18:50 08/06/2016 Diony Yoon-C) (Ack 18:56 DDean R.N.) (19:33 DDean R.N.) Haldol IV 3 mg (HIGH ALERT MEDICATION, NOW) (18:50 08/06/2016 Diony Painter) (Ack 18:56 DDean R.N.) (19:33 DDean R.N.) ORDER SHEET NOTES: [Electronically signed by Ani Baker R.N. (22:20 08/06/2016)] [Electronically signed by Fina Morillo P.A.-C (22:40 08/06/2016)] [Electronically locked/signed by Ani Baker R.N. (22:20 08/06/2016)]
--- NOTE | 2016-08-06 22:40 | ED MAR SUMMARY ---
..... Medication Administration Record [address] [place] [address] Patient: RIKY SCHMITT Visit ID: [id number] 40y, F Weight: 68.0 kg Height/Length: 65 in BMI: 25 ALLERGIES: ASA, Codeine, EES, Ibuprofen, PCN, Sulfa Antibiotics, Vicodin Start 19:12 08/06/2016 Ani Baker R.N., Stop 21:35 08/06/2016 Ani Baker R.N. Medication Administered: IV NS (SALINE), Dose: IV Fluids over 1 hour(s), Rate: 1000 mL/hr, Dispensed: 1000 mL bag, Site: #1. Medication Ordered: IV NS : initial bolus 1000 mL (1000 mL/hr), then 1000 mL/hr for X1 (NOW); Mekhi. Given 19:18 08/06/2016 Ani Baker R.N. Medication Administered: ZOFRAN [IVP] (ONDANSETRON HCL), Dose: 4 mg IVP over 1 minute(s), Site: #1 left wrist. Medication Ordered: Zofran IV 4 mg (NOW). Given 19:19 08/06/2016 Ani Baker R.N. Medication Administered: HALDOL [IVP] (HALOPERIDOL LACTATE), Dose: 3 mg IVP over 1 minute(s), Site: #1 left wrist. Medication Ordered: Haldol IV 3 mg (HIGH ALERT MEDICATION, NOW). Given 19:08/06/2016 Ani Baker R.N. Medication Administered: REGLAN [IVP] (METOCLOPRAMIDE HCL), Dose: 10 mg IVP over 2 minute(s), Site: #1 left wrist. Medication Ordered: Reglan IV 10 mg (NOW). Given 19:22 08/06/2016 Ani Baker R.N. Medication Administered: BENADRYL [IVP] (DIPHENHYDRAMINE HCL), Dose: 25 mg IVP over 1 minute(s), Site: #1 left wrist. Medication Ordered: Benadryl IV 25 mg (NOW). Given 21:45 08/06/2016 Ani Baker RRaulitoN. Medication Administered: PHENERGAN [IVP] (PROMETHAZINE HCL), Dose: 12.5 mg IVP over 1 minute(s), Site: #1 left wrist. Medication Ordered: Phenergan IV 12.5 mg (HIGH ALERT MEDICATION, NOW).
--- NOTE | 2016-08-06 22:40 | ED MED RECONCILIATION SUMMARY ---
Patient: RIKY SCHMITT Medication Reconciliation Report Located Within [facility] VisitID: [id number] [place] [address] 40y, F Registration Date/Time: 08/06/2016 Weight: 68.0 kg Height/Length: 65 in. BMI: 25.0 ALLERGIES: ASA, Codeine, EES, Ibuprofen, PCN, Sulfa Antibiotics, Vicodin The patient's Home Medications are listed below: THE FOLLOWING MEDICATIONS NEED TO BE RECONCILED: Abilify 5 mg hs Albuterol Sulfate HFA Inhalation Bentyl Oral 20 mg, 3x a day Carafate Oral 1 gm, 4x a day Phenergan suppos 25mg last dose 1600 Prazosin HCl Oral 2 mg, 3x a day Reglan 10mg QID Sennna 86mg prn Sertraline HCl Oral 100 mg, daily Vicodin 5mg every 4-6 hours- last dose 1600 Vistaril Oral 50 mg 1-2 caps hs zofran 4 mg ODT last dose 1500 Zofran 8 mg q 8 hrs The source(s) of the original Home Medication information: Not obtained. The following Medications were given to the patient in the Emergency Department: IV NS IV Fluids bolus 0, then 1000 mL/hr, administered: 08/06/2016 7:12:00 PM Zofran [IVP] IVP 4 mg, administered: 08/06/2016 7:18:00 PM HALDOL [IVP] IVP 3 mg, administered: 08/06/2016 7:19:00 PM Reglan [IVP] IVP 10 mg, administered: 08/06/2016 7:20:00 PM Benadryl [IVP] IVP 25 mg, administered: 08/06/2016 7:22:00 PM PHENERGAN [IVP] IVP 12.5 mg, administered: 08/06/2016 9:45:00 PM The following Medications were prescribed to the patient: Zofran (orally disintegrating tablets) 4 mg: take 1 orally every 6 hours for 3 days as needed for nausea. No refill. Substitution is permissible. -- Fina Morillo, P.A.-C Phenergan 12.5 mg suppositories: insert 1 rectally every 8 hours as needed for nausea. Dispense ten (10). No refill. Substitution is permissible -- Fina Morillo, MaritaC
--- NOTE | 2016-08-06 22:40 | ED MAR SUMMARY ---
..... Medication Administration Record [facility] [address] [place] [address] Patient: RIKY SCHMITT Visit ID: [id number] 40y, F Weight: 68.0 kg Height/Length: 65 in BMI: 25 ALLERGIES: ASA, Codeine, EES, Ibuprofen, PCN, Sulfa Antibiotics, Vicodin Start 19:12 08/06/2016 Ani Baker R.N., Stop 21:35 08/06/2016 Ani Baker R.N. Medication Administered: IV NS (SALINE), Dose: IV Fluids over 1 hour(s), Rate: 1000 mL/hr, Dispensed: 1000 mL bag, Site: #1. Medication Ordered: IV NS : initial bolus 1000 mL (1000 mL/hr), then 1000 mL/hr for X1 (NOW); Mekhi. Given 19:18 08/06/2016 Ani Baker R.N. Medication Administered: ZOFRAN [IVP] (ONDANSETRON HCL), Dose: 4 mg IVP over 1 minute(s), Site: #1 left wrist. Medication Ordered: Zofran IV 4 mg (NOW). Given 19:19 08/06/2016 Ani Baker R.N. Medication Administered: HALDOL [IVP] (HALOPERIDOL LACTATE), Dose: 3 mg IVP over 1 minute(s), Site: #1 left wrist. Medication Ordered: Haldol IV 3 mg (HIGH ALERT MEDICATION, NOW). Given 19:08/06/2016 Ani Baker R.N. Medication Administered: REGLAN [IVP] (METOCLOPRAMIDE HCL), Dose: 10 mg IVP over 2 minute(s), Site: #1 left wrist. Medication Ordered: Reglan IV 10 mg (NOW). Given 19:22 08/06/2016 Ani Baker R.N. Medication Administered: BENADRYL [IVP] (DIPHENHYDRAMINE HCL), Dose: 25 mg IVP over 1 minute(s), Site: #1 left wrist. Medication Ordered: Benadryl IV 25 mg (NOW). Given 21:45 08/06/2016 Ani Baker RRaulitoN. Medication Administered: PHENERGAN [IVP] (PROMETHAZINE HCL), Dose: 12.5 mg IVP over 1 minute(s), Site: #1 left wrist. Medication Ordered: Phenergan IV 12.5 mg (HIGH ALERT MEDICATION, NOW).
--- NOTE | 2016-08-06 22:40 | ED MED RECONCILIATION SUMMARY ---
Patient: RIKY SCHMITT Medication Reconciliation Report [facility] VisitID: [id number] [place] [address] 40y, F Registration Date/Time: 08/06/2016 Weight: 68.0 kg Height/Length: 65 in. BMI: 25.0 ALLERGIES: ASA, Codeine, EES, Ibuprofen, PCN, Sulfa Antibiotics, Vicodin The patient's Home Medications are listed below: THE FOLLOWING MEDICATIONS NEED TO BE RECONCILED: Abilify 5 mg hs Albuterol Sulfate HFA Inhalation Bentyl Oral 20 mg, 3x a day Carafate Oral 1 gm, 4x a day Phenergan suppos 25mg last dose 1600 Prazosin HCl Oral 2 mg, 3x a day Reglan 10mg QID Sennna 86mg prn Sertraline HCl Oral 100 mg, daily Vicodin 5mg every 4-6 hours- last dose 1600 Vistaril Oral 50 mg 1-2 caps hs zofran 4 mg ODT last dose 1500 Zofran 8 mg q 8 hrs The source(s) of the original Home Medication information: Not obtained. The following Medications were given to the patient in the Emergency Department: IV NS IV Fluids bolus 0, then 1000 mL/hr, administered: 08/06/2016 7:12:00 PM Zofran [IVP] IVP 4 mg, administered: 08/06/2016 7:18:00 PM HALDOL [IVP] IVP 3 mg, administered: 08/06/2016 7:19:00 PM Reglan [IVP] IVP 10 mg, administered: 08/06/2016 7:20:00 PM Benadryl [IVP] IVP 25 mg, administered: 08/06/2016 7:22:00 PM PHENERGAN [IVP] IVP 12.5 mg, administered: 08/06/2016 9:45:00 PM The following Medications were prescribed to the patient: Zofran (orally disintegrating tablets) 4 mg: take 1 orally every 6 hours for 3 days as needed for nausea. No refill. Substitution is permissible. -- Fina Morillo, P.A.-C Phenergan 12.5 mg suppositories: insert 1 rectally every 8 hours as needed for nausea. Dispense ten (10). No refill. Substitution is permissible -- Fina Morillo, MaritaC
--- NOTE | 2016-08-06 22:40 | ED DISCHARGE INSTRUCTIONS ---
Patient: RIKY SCHMITT General Instructions [facility] VisitID: [id number] [place] [address] 40y, F Registration Date/Time: 08/06/2016 Vomiting with nausea and volume depletion. Chronic abdominal pain of unknown cause. Well controlled type 2 diabetes (diet controlled). INSTRUCTIONS Drink plenty of fluids. Warnings: Further evaluation is necessary. Prescription Medications: Zofran (orally disintegrating tablets) 4 mg: take 1 orally every 6 hours for 3 days as needed for nausea. No refill. Substitution is permissible. Phenergan 12.5 mg suppositories: insert 1 rectally every 8 hours as needed for nausea. Dispense ten (10). No refill. Substitution is permissible Follow-up: Follow up with your doctor. ADDITIONAL INFORMATION Vomiting [6Yr-Adult] Vomiting is a common symptom that may be due to different causes. These include gastroenteritis ("stomach flu"), food poisoning and gastritis. There are other more serious causes of vomiting which may be hard to diagnose early in the illness. Therefore, it is important to watch for the warning signs listed below. The main danger from repeated vomiting is dehydration. This is due to excess loss of water and minerals from the body. When this occurs, body fluids must be replaced. Home Care: If symptoms are severe, rest at home for the next 24 hours. You may use acetaminophen (Tylenol) or ibuprofen (Motrin, Advil) to control fever, unless another medicine was prescribed. [NOTE : If you have chronic liver or kidney disease or ever had a stomach ulcer or GI bleeding, talk with your doctor before using these medicines.] (Aspirin should never be used in anyone under 18 years of age who is ill with a fever. It may cause severe liver damage.) Avoid tobacco and alcohol use, which may worsen your symptoms. If medicines for vomiting were prescribed, take as directed. Once vomiting stops, then follow these guidelines: During The First 12-24 Hours follow the diet below: FRUIT JUICES: Apple, grape juice, clear fruit drinks, and electrolyte replacement drinks. BEVERAGES: Soft drinks without caffeine; mineral water (plain or flavored), decaffeinated tea and coffee. SOUPS: Clear broth, consomm and bouillon DESSERTS: Plain gelatin, popsicles and fruit juice bars. As you feel better, you may add 6-8 ounces of yogurt per day. During The Next 24 Hours you may add the following to the above: Hot cereal, plain toast, bread, rolls, crackers Plain noodles, rice, mashed potatoes, chicken noodle or rice soup Unsweetened canned fruit (avoid pineapple), bananas Limit caffeine and chocolate. No spices or seasonings except salt. During The Next 24 Hours Gradually resume a normal diet, as you feel better and your symptoms lessen. Follow Up with your doctor as advised if you are not improving over the next 2-3 days. Get Prompt Medical Attention if any of the following occur: Constant right-sided lower abdominal pain or increasing general abdominal pain Continued vomiting (unable to keep liquids down) for 24 hours Frequent diarrhea (more than 5 times a day); blood (red or black color) or mucus in diarrhea Reduced urine output or extreme thirst Weakness, dizziness or fainting Unusually drowsy or confused Fever of 100.4F (38C) oral or higher, not better with fever medication Yellow color of the eyes or skin Abdominal Pain, Unknown Cause (Female) The exact cause of your abdominal (stomach) pain is not certain. This does not mean that this is something to worry about, or the right tests were not done. Everyone likes to know the exact cause of the problem, but sometimes with abdominal pain, there is no clear-cut cause, and this could be a good thing. The good news is that your symptoms can be treated, and you will feel better. Your condition does not seem serious now; however, sometimes the signs of a serious problem may take more time to appear. For this reason,it is important for you to watch for any new symptoms, problems,or worsening of your condition. Over the next few days, the abdominal pain may come and go, or be continuous. Other common symptoms can include nausea and vomiting. Sometimes it can be difficult to tell if you feel nauseous, you may just feel bad and not associate that feeling with nausea. Constipation, diarrhea, and a fever may go along with the pain. The pain may continue even if treated correctly over the following days. Depending on how things go, sometimes the cause can become clear and may require further or different treatment. Additional evaluations, medications, or tests may be needed. Home care Your health care provider may prescribe medications for pain, symptoms, or an infection. Follow the health care provider's instructions for taking these medications. General care Rest until your next exam. No strenuous activities. Try to find positions that ease discomfort. A small pillow placed on the abdomen may help relieve pain. Something warm on your abdomen (such as a heating pad) may help, but be careful not to burn yourself. Diet Do not force yourself to eat, especially if having cramps, vomiting, or diarrhea. Water is important so you do not get dehydrated. Soup may also be good. Sports drinks may also help, especially if they are not too acidic. Make sure you don't drink sugary drinks as this can make things worse. Take liquids in small amounts. Do not guzzle them. Caffeine sometimes makes the pain and cramping worse. Avoid dairy products if you have vomiting or diarrhea. Don't eat large amounts at a time. Wait a few minutes between bites. Eat a diet low in fiber (called a low-residue diet). Foods allowed include refined breads, white rice, fruit and vegetable juices without pulp, tender meats. These foods will pass more easily through the intestine. Avoid whole-grain foods, whole fruits and vegetables, meats, seeds and nuts, fried or fatty foods, dairy, alcohol and spicy foods until your symptoms go away. Follow-up care Follow up with your health care provider as instructed, or if your pain does not begin to improve in the next 24 hours. When to seek medical care Seek prompt medical care if any of the following occur: Pain gets worse or moves to the right lower abdomen New or worsening vomiting or diarrhea Swelling of the abdomen Unable to pass stool for more than three days Fever of 100.4F (38C) or higher, or as directed by your healthcare provider. Blood in vomit or bowel movements (dark red or black color) Jaundice (yellow color of eyes and skin) Weakness, dizziness Chest, arm, back, neck or jaw pain Unexpected vaginal bleeding or missed period Call 911 Call emergency services if any of the following occur: Trouble breathing Confusion Fainting or loss of consciousness Rapid heart rate Seizure Symptoms With Uncertain Cause [Adult] Based on the exam and any tests that were performed today, the exact cause of your symptoms is not certain. While your condition does not seem serious, the signs of a serious problem may take more time to appear. Therefore, it is important for you to watch for any new symptoms or worsening of your condition.Follow up with your doctor or this facility, as directed.A repeat physical exam or additional testing at a later time may uncover a cause for your symptoms that is not evident today. Home Care: Resume your usual activities and diet when this feels comfortable to do so. Follow Up with your doctor, or as advised by our staff.Contact your doctor sooner if your symptoms do not begin to improve in the next few days. [NOTE: If you had an x-ray, CT scan, ultrasound, or ECG (electrocardiogram), it will be reviewed by a specialist. You will be notified of any new findings that may affect your care.] Get Prompt Medical Attention if any of the following occur: Current symptoms get worse New symptoms appear You have been given the following additional information: Vomiting (8Y-Adult) Abdominal Pain, Unknown Cause, (Female) Symptoms With Uncertain Cause (Electronically signed by Fina Morillo P.A.-C 08/06/2016 22:40)
== END 2016-08-06 22:10 | disposition home or self-care (01) ==
LOC: ED SRH 18:39
DX: R11.2 Nausea with vomiting, unspecified (principal); E86.9 Volume depletion, unspecified; R10.33 Periumbilical pain; E11.9 Type 2 diabetes mellitus without complications; Z79.899 Other long term (current) drug therapy; Z88.2 Allergy status to sulfonamides; Z88.5 Allergy status to narcotic agent
CPT/HCPCS: 90004; 90100; 93070; 95059

== ENCOUNTER 2016-09-11 17:03 | Emergency (ER) | payer BC ==
--- NOTE | 2016-09-11 20:07 | ED ORDER SUMMARY ---
..... Patient: RIKY SCHMITT OrderSheet [facility] VisitID: [id number] [address] [place] [address] 40y, F Registration Date/Time: 09/11/2016 ORDER SHEET Weight: 66.2 kg (stated) Allergies: ASA, Codeine, EES, Ibuprofen, PCN, Sulfa Antibiotics, Vicodin GENERAL ORDERS: CBC w Diff Urgent (17:25 09/11/2016 EKoroleva P.A.-C) (Ack 17:37 KHoerner) (17:47 KKnebel R.N.) CMP Urgent (17:09/11/2016 EKoroleva P.A.-C) (Ack 17:37 KHoerner) (17:47 KKnebel R.N.) UA-Culture if indicated Urgent (17:09/11/2016 EKoroleva P.A.-C) (Ack 17:37 KHoerner) (18:52 KKnebel R.N.) Urine Urgent (17:25 09/11/2016 EKoroleva P.A.-C) (Ack 17:37 KHoerner) (18:52 KKnebel R.N.) Vitals (18:50 09/11/2016 EKoroleva P.A.-C) (18:52 KKnebel R.N.) MEDICATION ORDERS: Phenergan IV 12.5 mg (HIGH ALERT MEDICATION, NOW) (17:47 09/11/2016 EKoroleva P.A.-C) (Ack 17:50 KKnebel R.N.) (18:52 KKnebel R.N.) Phenergan IV 12.5 mg (HIGH ALERT MEDICATION, NOW) (18:59 09/11/2016 EKoroleva P.A.-C) (19:33 KKnebel R.N.) IV FLUIDS: IV NS : initial bolus 1000 mL (1000 mL/hr), then 1000 mL/hr for X1 (NOW); Mekhi (17:24 09/11/2016 EKoroleva P.A.-C) (17:48 KKnebel R.N.) Reglan IV 10 mg (NOW) (17:24 09/11/2016 EKoroleva P.A.-C) (17:49 KKnebel R.N.) Benadryl IV 50 mg (NOW) (17:24 09/11/2016 EKoroleva P.A.-C) (Ack 17:50 KKnebel R.N.) (18:51 KKnebel R.N.) Zofran IV 8 mg (NOW) (17:25 09/11/2016 EKoroleva P.A.-C) (Ack 17:50 KKnebel R.N.) (18:51 KKnebel R.N.) Haldol IV 3 mg (HIGH ALERT MEDICATION, NOW) (17:47 09/11/2016 EKoroleva P.A.-C) (Ack 17:50 KKnebel R.N.) (18:52 KKnebel R.N.) Dilaudid IV 1 mg (HIGH ALERT MEDICATION, NOW) (19:34 09/11/2016 EKoroleva P.A.-C) (19:53 KKnebel R.N.) ORDER SHEET NOTES: [Electronically signed by Fina Morillo-Juaquin (20:39 09/11/2016)] [Electronically signed by Araceli Patel R.N. (23:09 09/11/2016)] [Electronically locked/signed by Araceli Patel R.N. (23:09 09/11/2016)]
--- NOTE | 2016-09-11 20:07 | ED ORDER SUMMARY ---
..... Patient: RIKY SCHMITT OrderSheet [facility] VisitID: [id number] [address] [place] [address] 40y, F Registration Date/Time: 09/11/2016 ORDER SHEET Weight: 66.2 kg (stated) Allergies: ASA, Codeine, EES, Ibuprofen, PCN, Sulfa Antibiotics, Vicodin GENERAL ORDERS: CBC w Diff Urgent (17:25 09/11/2016 EKoroleva P.A.-C) (Ack 17:37 KHoerner) (17:47 KKnebel R.N.) CMP Urgent (17:09/11/2016 EKoroleva P.A.-C) (Ack 17:37 KHoerner) (17:47 KKnebel R.N.) UA-Culture if indicated Urgent (17:09/11/2016 EKoroleva P.A.-C) (Ack 17:37 KHoerner) (18:52 KKnebel R.N.) Urine Urgent (17:25 09/11/2016 EKoroleva P.A.-C) (Ack 17:37 KHoerner) (18:52 KKnebel R.N.) Vitals (18:50 09/11/2016 EKoroleva P.A.-C) (18:52 KKnebel R.N.) MEDICATION ORDERS: Phenergan IV 12.5 mg (HIGH ALERT MEDICATION, NOW) (17:47 09/11/2016 EKoroleva P.A.-C) (Ack 17:50 KKnebel R.N.) (18:52 KKnebel R.N.) Phenergan IV 12.5 mg (HIGH ALERT MEDICATION, NOW) (18:59 09/11/2016 EKoroleva P.A.-C) (19:33 KKnebel R.N.) IV FLUIDS: IV NS : initial bolus 1000 mL (1000 mL/hr), then 1000 mL/hr for X1 (NOW); Mekhi (17:24 09/11/2016 EKoroleva P.A.-C) (17:48 KKnebel R.N.) Reglan IV 10 mg (NOW) (17:24 09/11/2016 EKoroleva P.A.-C) (17:49 KKnebel R.N.) Benadryl IV 50 mg (NOW) (17:24 09/11/2016 EKoroleva P.A.-C) (Ack 17:50 KKnebel R.N.) (18:51 KKnebel R.N.) Zofran IV 8 mg (NOW) (17:25 09/11/2016 EKoroleva P.A.-C) (Ack 17:50 KKnebel R.N.) (18:51 KKnebel R.N.) Haldol IV 3 mg (HIGH ALERT MEDICATION, NOW) (17:47 09/11/2016 EKoroleva P.A.-C) (Ack 17:50 KKnebel R.N.) (18:52 KKnebel R.N.) Dilaudid IV 1 mg (HIGH ALERT MEDICATION, NOW) (19:34 09/11/2016 EKoroleva P.A.-C) (19:53 KKnebel R.N.) ORDER SHEET NOTES: [Electronically signed by Fina Morillo-Juaquin (20:39 09/11/2016)] [Electronically signed by Araceli Patel R.N. (23:09 09/11/2016)] [Electronically locked/signed by Araceli Patel R.N. (23:09 09/11/2016)]
--- NOTE | 2016-09-11 20:07 | ED CLINICAL REPORT ---
Clinical Report - Physicians/Mid Levels [facility] [address] [place] [address] 09/11/2016 17:03 Patient: RIKY SCHMITT Time Seen: 17:22 Sep 11 2016. Arrived- By private vehicle. Historian- patient. HISTORY OF PRESENT ILLNESS Chief Complaint: VOMITING and DIARRHEA. This started just prior to arrival and is still present. No recent travel. No nausea or vomiting. Has not recently been camping. The illness is described as mild. (Patient with vomiting, abdominal pain since this morning. Patient with history of similar previously, denies any recent fevers or diarrhea. Denies any recent medication changes. Patient was seen previously in the emergency department in August, and since has had a visit with her primary care doctor, today, in addition saw GI clinic at [facility], who wanted to continue her diet for an additional 8 weeks.). REVIEW OF SYSTEMS No fever, dizziness or chest pain. All systems otherwise negative, except as recorded above. PAST HISTORY Problems: Diabetes Mellitus. Hypertension. Dehydration. Abdominal Pain. Vomiting. Murmur . SICKLE CELL TRAIT. Gastroparesis. Diabetes Mellitus Type 2. Additional Surgeries: Endoscopy. Knee Surgery. Tonsillectomy. Medications: Abilify 5 mg hs . Albuterol Sulfate HFA Inhalation. Sertraline. Omeprazole. Phenergan. Zofran. Reglan. Allergies: ASA. Codeine. EES. Ibuprofen. PCN. Sulfa Antibiotics. Vicodin. SOCIAL HISTORY Smoker- current status unknown. No alcohol use or drug use. ADDITIONAL NOTES The nursing notes have been reviewed. PHYSICAL EXAM Vital Signs: 09/11/2016 17:15 BP: 154/79. HR: 84. RR: 20. O2 saturation: 97%. Temp: 97.7 F. Pain level now: 10/10. Appearance: Alert. Eyes: Eyes normal inspection. ENT: Ears normal. Nose normal. No pharyngeal erythema or tonsillar exudate. Neck: Normal inspection. No carotid bruit or lymphadenopathy. CVS: Normal heart rate and rhythm. Heart sounds normal. Respiratory: No respiratory distress. Breath sounds normal. No accessory muscle use or decreased air movement. Abdomen: Soft and nontender. Bowel sounds normal. Back: Normal inspection. Skin: Skin warm. Normal skin color. Skin not cool on palpation. Neuro: Oriented X 3. LABS, X-RAYS, AND EKG Laboratory Tests: UA-Culture if indicated: (TARYN: 09/11/2016 18:08) ( [facility] 09/11/2016 18:37) Final results Test Result Flag Units (Reference) URINE COLOR YELLOW URINE APPEARANCE CLEAR URINE GLUCOSE NEGATIVE (NEGATIVE) URINE BILIRUBIN NEGATIVE (NEGATIVE) URINE KETONE NEGATIVE (NEGATIVE) URINE SPECIFIC GRAVITY 1.020 (1.010-1.030) URINE PH 6.0 (5.0-8.0) URINE PROTEIN NEGATIVE (NEGATIVE) URINE UROBILINOGEN 0.2 EU/dL (0.2-1.0) URINE NITRITE NEGATIVE (NEGATIVE) URINE BLOOD NEGATIVE (NEGATIVE) URINE LEUK ESTERASE NEGATIVE (NEGATIVE) URINE RBC 0-1 rbc/hpf (0-1) URINE WBC 1-3 wbc/hpf (0-1) URINE EPITHELIAL CELLS 5-10 EPI/hpf (0-5) URINE BACTERIA FEW (1+) (NONE SEEN) URINE COMMENT CULT NOT INDICATED URINE CULTURES ARE SET-UP BASED ON THE FOLLOWING CRITERIA:POSITIVE NITRITEPOSITIVE LEUKOCYTE ESTERASEGREATER THAN 10 WHITE BLOOD CELLSMODERATE (2+) OR GREATER BACTERIA Urine: (TARYN: 09/11/2016 18:08) ( [facility] 09/11/2016 18:21) Final results Test Result Flag Units (Reference) URINE NEGATIVE CBC w Diff: (TARYN: 09/11/2016 17:40) ( [facility] 09/11/2016 19:31) Final results Test Result Flag Units (Reference) WHITE BLOOD COUNT 8.3 K/uL (4.5-11.5) RED BLOOD COUNT 4.88 M/uL (4.00-5.20) HEMOGLOBIN 13.0 gm/dL (12.0-16.0) HEMATOCRIT 39.8 % (36.0-46.0) MEAN CELL VOLUME 82 fL (80-100) MEAN CORPUSCULAR HGB 27 pg (26-34) MEAN CORPUSCULAR HGB CONC 33 g/dL (31-37) RED CELL DISTRIBUTION WIDTH 17.2 H % (11.6-14.8) PLATELET COUNT 364 K/uL (150-400) POLY % 71 % (50-75) BAND % 4 % (0-8) LYMPH 18 L % (25-40) MONO 1 L % (3-14) EOSINOPHIL % 5 H % (0-4) BASOPHIL % 1 % (0-2) METAMYELOCYTE % 0 % (0-1) MYELOCYTE 0 % (0-1) OTHER CELL TYPE 0 ANISOCYTOSIS 1+ CMP: (TARYN: 09/11/2016 17:40) ( MsgRcvd 09/11/2016 18:12) Final results Test Result Flag Units (Reference) GLUCOSE 159 H mg/dL (70-110) BUN 5 L mg/dL (7-18) CREATININE 0.7 mg/dL (0.6-1.3) Estimated GFR >60 mL/min Estimated GFR- >60 mL/min Note: Persistent reduction over 3 months in eGFR<60 mL/min/1.73 m2 defines CKD. Patients with eGFR values>=60 mL/min/1.73 m2 may also have CKD if evidence ofpersistent proteinuria. Additional information may be foundat www.kidney.org. SODIUM 143 mmol/L (136-145) POTASSIUM 3.9 mmol/L (3.5-5.1) CHLORIDE 106 mmol/L (98-107) CARBON DIOXIDE 29 mmol/L (21-32) CALCIUM 9.0 mg/dL (8.5-10.1) TOTAL PROTEIN 8.5 H g/dL (6.4-8.2) ALBUMIN 3.8 g/dL (3.3-5.0) BILIRUBIN, TOTAL 0.4 mg/dL (0.0-1.0) ALKALINE PHOSPHATASE 64 U/L (46-116) AST (SGOT) 12 L U/L (15-37) ALT (SGPT) 18 U/L (12-78) . PROGRESS AND PROCEDURES Course of Care: patient with an largely unremarkable lab workup, similar symptoms as previous with history of gastroparesis. Abdomen is soft, mild tenderness which is diffuse in nature. Patient given multiple medications in the emergency department, including Phenergan 12.5 mg IV 2, Reglan 10 mg IV, 2 L of IV fluid, Benadryl 50 mg, Haldol 3 mg iv, pt continued to have pain, and was given 1 mg iv dilauidid, it was then very quickly that she became pain free and desired to be discharged. . 09/11/2016 20:13 BP: 109/51. HR: 91. RR: 16. O2 saturation: 95%. Pain level now: 0/10. 09/11/2016 18:53 BP: 141/90. HR: 82. O2 saturation: 98%. Pain level now: 8/10. Patient is stable. Symptoms better. Patient/family counseled. Differential Diagnosis: I considered gastritis, gastroenteritis, peptic ulcer disease, acute appendicitis, diverticulitis, small bowel obstruction, adhesions, biliary colic, hepatitis, splenic injury, intraabdominal abscess, urinary tract infection, cystitis, ovarian cyst, pelvic inflammatory disease and diabetic ketoacidosis as a possible cause of abdominal pain in this patient. This is a partial list of diagnoses considered. Disposition: Discharged. CLINICAL IMPRESSION Vomiting with nausea and volume depletion. Chronic abdominal pain. INSTRUCTIONS Drink plenty of fluids. Other diet: for 48 hours. Prescription Medications: Phenergan 12.5 mg tablets: take 1 orally every 6 hours as needed for nausea or vomiting. Dispense ten (10). No refill. Substitution is permissible Reglan 10 mg tablets: take 1 orally every 8 hours for 3 days. Dispense ten (10). No refills. Substitution is permissible. Phenergan 12.5 mg suppositories: insert 1 rectally every 6 hours as needed for nausea. Dispense ten (10) Follow-up: Follow up with your doctor in three days. (Electronically signed by Fina Morillo P.A.-C 09/11/2016 20:39)
--- NOTE | 2016-09-11 20:07 | ED NURSING NOTES ---
Clinical Report - Nurses [facility] [address] [place] [address] 09/11/2016 17:03 Patient: RIKY SCHMITT TRIAGE Triage time 17:15 Sep 11 2016. Acuity: LEVEL 3. Chief Complaint: ABDOMINAL PAIN. Alert. No acute distress. --17:21 Araceli Patel R.N. 17:15 09/11/16. BP: 154/79. HR: 84. RR: 20. O2 saturation: 97%. Temp: 97.7 F. Pain level now: 01/12. --17:21 Araceli Patel R.N. Weight: 66.2 kg stated. Height/Length: 65 inches Per Patient. BMI: 24.3. --17:21 Araceli Patel R.N. Medications Reglan. --17:16 Araceli Patel R.N. Zofran. --17:16 Araceli Patel R.N. Phenergan. --17:17 Araceli Patel R.N. Omeprazole. --17:17 Araceli Patel R.N. Sertraline. --17:17 Araceli Patel R.N. Abilify 5 mg hs . Albuterol Sulfate HFA Inhalation. --17:18 Araceli Patel R.N. Allergies ASA. --17:18 Araceli Patel R.N. Codeine. EES. Ibuprofen. PCN. Sulfa Antibiotics. Vicodin. --17:18 Araceli Patel R.N. History Arrived by private vehicle. Historian: patient. Accompanied by family and spouse. This started today. ( patient has history of gastroparesis and states that pain started this morning with nausea and vomiting.). She has had nausea and vomiting. Last oral intake by patient was last night. Treatment BAG ADJUSTER: None. PAST MEDICAL HX: Immunizations: up-to-date. Last normal menstrual period was 2 weeks ago. SOCIAL HX: Current every day heavy tobacco smoker (cigarette)- less than 1 pack per day. No alcohol use or drug use. No recent travel. No infectious disease exposure. SELF HARM ASSESSMENT: A self harm assessment was performed. The patient answered "no" to the question "Do you have thoughts of harming or killing yourself?". FALL RISK ASSESSMENT: Fall risk assessment completed. No fall risk identified. NUTRITIONAL RISK ASSESSMENT: The nutritional risk assessment revealed no deficiencies. FUNCTIONAL ASSESSMENT: Functional assessment: no impairments noted. LEARNING NEEDS ASSESSMENT: The learning needs assessment revealed no barriers. ABUSE ASSESSMENT: Abuse assessment: The patient was asked "Do you feel safe in your home?". SKIN INTEGRITY ASSESSMENT: Skin integrity risk assessment completed. No skin integrity risk identified. --17:21 Araceli Patel R.N. PROBLEMS: Diabetes Mellitus. Hypertension. Dehydration. Abdominal Pain. Vomiting. Murmur . SICKLE CELL TRAIT. Gastroparesis. Diabetes Mellitus Type 2. --17:19 Araceli Patel R.N. ADDITIONAL SURGERIES: Endoscopy. Knee Surgery. Tonsillectomy. --17:19 Araceli Patel R.N. Interventions ID band on patient. To room. --17:21 Araceli Patel R.N. PHYSICAL ASSESSMENT GENERAL / NEURO / PSYCH: Alert. Oriented X 4. Appears in pain. RESPIRATORY: Respirations not labored. CVS: Capillary refill less than 2 seconds. GI / : The patient has had nausea. Emesis noted. Abdominal tenderness in the periumbilical area. SKIN: Skin is warm and dry. --17:22 Araceli Patel R.N. To room via wheelchair. --17:22 Araceli Patel R.N. NURSING PROGRESS NOTES Patient gowned. Head of bed elevated. Patient identifiers checked. Call light placed in reach. Side rails up x 1. Bed placed in lowest position. Brakes of bed on. --17:22 Araceli Patel R.N. 13:41 09/05/2016 Reglan (Metoclopramide HCl) IVP 10 mg given over 2 minute(s) via site #1. Allergies verified and confirmed 5 rights. IV patency established. IV site checked: no pain, redness, or swelling. IV flushed thoroughly pre- and post-medication administration. IVP given by RN. --17:49 Araceli Patel R.N. 17:33 09/11/2016 Site #1 started via IV in the right hand with an 20g angiocath, with aseptic technique; one attempt. Blood drawn: rainbow set. Labeled in the presence of the patient and sent to the lab. Saline lock flushed with 10 mL saline. --17:48 Araceli Patel R.N. 17:48 09/11/2016 Started bag #1 1000 mL IV Fluids IV NS (Saline); bolus of 1000 mL over 1 hour(s) via site #1 via IV pump. Allergies verified and confirmed 5 rights. IV patency established. IV site checked: no pain, redness, or swelling. IV flushed thoroughly pre- and post-medication administration. --17:48 Araceli Patel R.N. 17:51 09/11/2016 Benadryl (DiphenhydrAMINE HCl) IVP 50 mg given over 2 minute(s) via site #1. Allergies verified and confirmed 5 rights. IV patency established. IV site checked: no pain, redness, or swelling. IV flushed thoroughly pre- and post-medication administration. IVP given by RN. --18:51 Araceli Patel R.N. 17:53 09/11/2016 Zofran (Ondansetron HCl) IVP 8 mg given over 2 minute(s) via site #1. Allergies verified and confirmed 5 rights. IV patency established. IV site checked: no pain, redness, or swelling. IV flushed thoroughly pre- and post-medication administration. IVP given by RN. --18:51 Araceli Patel R.N. 18:27 09/11/2016 PHENERGAN (Promethazine HCl) IVP 12.5 mg given over 2 minute(s) via site #1. Allergies verified and confirmed 5 rights. IV patency established. IV site checked: no pain, redness, or swelling. IV flushed thoroughly pre- and post-medication administration. IVP given by RN. --18:52 Araceli Patel R.N. 18:29 09/11/2016 HALDOL (Haloperidol Lactate) IVP 3 mg given over 2 minute(s) via site #1. Allergies verified, confirmed 5 rights and sedative warning given to the patient. IV patency established. IV site checked: no pain, redness, or swelling. IV flushed thoroughly pre- and post-medication administration. IVP given by RN. --18:52 Araceli Patel R.N. 18:53 09/11/16. BP: 141/90. HR: 82. O2 saturation: 98%. Pain level now: 11/12. --18:53 Araceli Patel R.N. 19:33 09/11/2016 PHENERGAN (Promethazine HCl) IVP 12.5 mg given over 2 minute(s) via site #1. Allergies verified and confirmed 5 rights. IV patency established. IV site checked: no pain, redness, or swelling. IV flushed thoroughly pre- and post-medication administration. IVP given by RN. --19:33 Araceli Patel R.N. 19:48 09/11/2016 Dilaudid (HYDROmorphone HCl PF) IVP 1 mg given over 2 minute(s) via site #1. Allergies verified, confirmed 5 rights and sedative warning given to the patient. IV patency established. IV site checked: no pain, redness, or swelling. IV flushed thoroughly pre- and post-medication administration. IVP given by RN. --19:53 Araceli Patel R.N. DISPOSITION / DISCHARGE 20:14 09/11/2016 Site #1 removed upon discharge. Bandage applied. --20:14 Araceli Patel R.N. Departure time: 20:Sep 11 2016. Condition at departure: improved. No learning barriers present. Discharge instructions provided and reviewed with the spouse. Reviewed referral to a primary care physician for followup. Patient verbalized understanding. Written instructions provided in Chinese. The patient was discharged home and accompanied by spouse. She left the Emergency Department ambulatory and via private vehicle. Spouse driving. FALL RISK ASSESSMENT: Fall risk assessment completed. No fall risk identified. --20:14 Araceli Patel R.N. 20:13 09/11/16. BP: 109/51. HR: 91. RR: 16. O2 saturation: 95%. Pain level now: 0/10. --20:14 Araceli Patel R.N. Locked/Released at 09/11/2016 23:09 by Araceli Patel R.N.
--- NOTE | 2016-09-11 23:09 | ED MED RECONCILIATION SUMMARY ---
Patient: RIKY SCHMITT Medication Reconciliation Report [facility] VisitID: [id number] [address] [place] [address] 40y, F Registration Date/Time: 09/11/2016 Weight: 66.2 kg Height/Length: 65 in. BMI: 24.3 ALLERGIES: ASA, Codeine, EES, Ibuprofen, PCN, Sulfa Antibiotics, Vicodin The patient's Home Medications are listed below: THE FOLLOWING MEDICATIONS NEED TO BE RECONCILED: Abilify 5 mg hs Albuterol Sulfate HFA Inhalation Omeprazole Phenergan Reglan Sertraline Zofran The source(s) of the original Home Medication information: Not obtained. The following Medications were given to the patient in the Emergency Department: IV NS IV Fluids bolus 1000 mL over 1 hour(s), administered: 09/11/2016 5:48:00 PM Reglan [IVP] IVP 10 mg, administered: 09/05/2016 1:41:00 PM Benadryl [IVP] IVP 50 mg, administered: 09/11/2016 5:51:00 PM Zofran [IVP] IVP 8 mg, administered: 09/11/2016 5:53:00 PM PHENERGAN [IVP] IVP 12.5 mg, administered: 09/11/2016 6:27:00 PM HALDOL [IVP] IVP 3 mg, administered: 09/11/2016 6:29:00 PM PHENERGAN [IVP] IVP 12.5 mg, administered: 09/11/2016 7:33:00 PM Dilaudid [IVP] IVP 1 mg, administered: 09/11/2016 7:48:00 PM The following Medications were prescribed to the patient: Phenergan 12.5 mg tablets: take 1 orally every 6 hours as needed for nausea or vomiting. Dispense ten (10). No refill. Substitution is permissible -- Fina Morillo, P.A.-Juaquin Reglan 10 mg tablets: take 1 orally every 8 hours for 3 days. Dispense ten (10). No refills. Substitution is permissible. -- Fina Morillo, P.A.-Juaquin Phenergan 12.5 mg suppositories: insert 1 rectally every 6 hours as needed for nausea. Dispense ten (10) -- Fina Morillo P.A.-C
--- NOTE | 2016-09-11 23:09 | ED MAR SUMMARY ---
..... Medication Administration Record Located Within [facility] [address] [place] [address] Patient: RIKY SCHMITT Visit ID: [id number] 40y, F Weight: 66.2 kg Height/Length: 65 in BMI: 24.3 ALLERGIES: ASA, Codeine, EES, Ibuprofen, PCN, Sulfa Antibiotics, Vicodin Given 13:41 09/05/2016 Araceli Patel R.N. Medication Administered: REGLAN [IVP] (METOCLOPRAMIDE HCL), Dose: 10 mg IVP over 2 minute(s), Site: #1. Medication Ordered: Reglan IV 10 mg (NOW). Start 17:48 09/11/2016 Araceli Patel R.N. Medication Administered: IV NS (SALINE), Dose: IV Fluids, Bolus: 1000 mL over 1 hour(s), Dispensed: 1000 mL bag, Site: #1 right hand. Medication Ordered: IV NS : initial bolus 1000 mL (1000 mL/hr), then 1000 mL/hr for X1 (NOW); Mekhi. Given 17:51 09/11/2016 Araceli Patel R.N. Medication Administered: BENADRYL [IVP] (DIPHENHYDRAMINE HCL), Dose: 50 mg IVP over 2 minute(s), Site: #1 right hand. Medication Ordered: Benadryl IV 50 mg (NOW). Given 17:53 09/11/2016 Araceli Patel R.N. Medication Administered: ZOFRAN [IVP] (ONDANSETRON HCL), Dose: 8 mg IVP over 2 minute(s), Site: #1 right hand. Medication Ordered: Zofran IV 8 mg (NOW). Given 18:27 09/11/2016 Araceli Patel R.N. Medication Administered: PHENERGAN [IVP] (PROMETHAZINE HCL), Dose: 12.5 mg IVP over 2 minute(s), Site: #1 right hand. Medication Ordered: Phenergan IV 12.5 mg (HIGH ALERT MEDICATION, NOW). Given 18:29 09/11/2016 Knebel, Araceli, R.N. Medication Administered: HALDOL [IVP] (HALOPERIDOL LACTATE), Dose: 3 mg IVP over 2 minute(s), Site: #1 right hand. Medication Ordered: Haldol IV 3 mg (HIGH ALERT MEDICATION, NOW). Given 19:33 09/11/2016 Araceli Patel R.N. Medication Administered: PHENERGAN [IVP] (PROMETHAZINE HCL), Dose: 12.5 mg IVP over 2 minute(s), Site: #1 right hand. Medication Ordered: Phenergan IV 12.5 mg (HIGH ALERT MEDICATION, NOW). Given 19:48 09/11/2016 Araceli Patel, RRaulitoN. Medication Administered: DILAUDID [IVP] (HYDROMORPHONE HCL PF), Dose: 1 mg IVP over 2 minute(s), Site: #1 right hand. Medication Ordered: Dilaudid IV 1 mg (HIGH ALERT MEDICATION, NOW).
--- NOTE | 2016-09-11 23:09 | ED MED RECONCILIATION SUMMARY ---
Patient: RIKY SCHMITT Medication Reconciliation Report [facility] VisitID: [id number] [address] [place] [address] 40y, F Registration Date/Time: 09/11/2016 Weight: 66.2 kg Height/Length: 65 in. BMI: 24.3 ALLERGIES: ASA, Codeine, EES, Ibuprofen, PCN, Sulfa Antibiotics, Vicodin The patient's Home Medications are listed below: THE FOLLOWING MEDICATIONS NEED TO BE RECONCILED: Abilify 5 mg hs Albuterol Sulfate HFA Inhalation Omeprazole Phenergan Reglan Sertraline Zofran The source(s) of the original Home Medication information: Not obtained. The following Medications were given to the patient in the Emergency Department: IV NS IV Fluids bolus 1000 mL over 1 hour(s), administered: 09/11/2016 5:48:00 PM Reglan [IVP] IVP 10 mg, administered: 09/05/2016 1:41:00 PM Benadryl [IVP] IVP 50 mg, administered: 09/11/2016 5:51:00 PM Zofran [IVP] IVP 8 mg, administered: 09/11/2016 5:53:00 PM PHENERGAN [IVP] IVP 12.5 mg, administered: 09/11/2016 6:27:00 PM HALDOL [IVP] IVP 3 mg, administered: 09/11/2016 6:29:00 PM PHENERGAN [IVP] IVP 12.5 mg, administered: 09/11/2016 7:33:00 PM Dilaudid [IVP] IVP 1 mg, administered: 09/11/2016 7:48:00 PM The following Medications were prescribed to the patient: Phenergan 12.5 mg tablets: take 1 orally every 6 hours as needed for nausea or vomiting. Dispense ten (10). No refill. Substitution is permissible -- Fina Morillo, P.A.-Juaquin Reglan 10 mg tablets: take 1 orally every 8 hours for 3 days. Dispense ten (10). No refills. Substitution is permissible. -- Fina Morillo, P.A.-Juaquin Phenergan 12.5 mg suppositories: insert 1 rectally every 6 hours as needed for nausea. Dispense ten (10) -- Fina Morillo P.A.-C
--- NOTE | 2016-09-11 23:09 | ED MAR SUMMARY ---
..... Medication Administration Record [facility] [address] [place] [address] Patient: RIKY SCHMITT Visit ID: [id number] 40y, F Weight: 66.2 kg Height/Length: 65 in BMI: 24.3 ALLERGIES: ASA, Codeine, EES, Ibuprofen, PCN, Sulfa Antibiotics, Vicodin Given 13:41 09/05/2016 Araceli Patel R.N. Medication Administered: REGLAN [IVP] (METOCLOPRAMIDE HCL), Dose: 10 mg IVP over 2 minute(s), Site: #1. Medication Ordered: Reglan IV 10 mg (NOW). Start 17:48 09/11/2016 Araceli Patel R.N. Medication Administered: IV NS (SALINE), Dose: IV Fluids, Bolus: 1000 mL over 1 hour(s), Dispensed: 1000 mL bag, Site: #1 right hand. Medication Ordered: IV NS : initial bolus 1000 mL (1000 mL/hr), then 1000 mL/hr for X1 (NOW); Mekhi. Given 17:51 09/11/2016 Araceli Patel R.N. Medication Administered: BENADRYL [IVP] (DIPHENHYDRAMINE HCL), Dose: 50 mg IVP over 2 minute(s), Site: #1 right hand. Medication Ordered: Benadryl IV 50 mg (NOW). Given 17:53 09/11/2016 Araceli Patel R.N. Medication Administered: ZOFRAN [IVP] (ONDANSETRON HCL), Dose: 8 mg IVP over 2 minute(s), Site: #1 right hand. Medication Ordered: Zofran IV 8 mg (NOW). Given 18:27 09/11/2016 Araceli Patel R.N. Medication Administered: PHENERGAN [IVP] (PROMETHAZINE HCL), Dose: 12.5 mg IVP over 2 minute(s), Site: #1 right hand. Medication Ordered: Phenergan IV 12.5 mg (HIGH ALERT MEDICATION, NOW). Given 18:29 09/11/2016 Knebel, Araceli, R.N. Medication Administered: HALDOL [IVP] (HALOPERIDOL LACTATE), Dose: 3 mg IVP over 2 minute(s), Site: #1 right hand. Medication Ordered: Haldol IV 3 mg (HIGH ALERT MEDICATION, NOW). Given 19:33 09/11/2016 Araceli Patel R.N. Medication Administered: PHENERGAN [IVP] (PROMETHAZINE HCL), Dose: 12.5 mg IVP over 2 minute(s), Site: #1 right hand. Medication Ordered: Phenergan IV 12.5 mg (HIGH ALERT MEDICATION, NOW). Given 19:48 09/11/2016 Araceli Patel, RRaulitoN. Medication Administered: DILAUDID [IVP] (HYDROMORPHONE HCL PF), Dose: 1 mg IVP over 2 minute(s), Site: #1 right hand. Medication Ordered: Dilaudid IV 1 mg (HIGH ALERT MEDICATION, NOW).
--- NOTE | 2016-09-11 23:09 | ED DISCHARGE INSTRUCTIONS ---
Patient: RIKY SCHMITT General Instructions [facility] VisitID: [id number] [place] [address] 40y, F Registration Date/Time: 09/11/2016 Vomiting with nausea and volume depletion. Chronic abdominal pain. INSTRUCTIONS Drink plenty of fluids. Other diet: for 48 hours. Prescription Medications: Phenergan 12.5 mg tablets: take 1 orally every 6 hours as needed for nausea or vomiting. Dispense ten (10). No refill. Substitution is permissible Reglan 10 mg tablets: take 1 orally every 8 hours for 3 days. Dispense ten (10). No refills. Substitution is permissible. Phenergan 12.5 mg suppositories: insert 1 rectally every 6 hours as needed for nausea. Dispense ten (10) Follow-up: Follow up with your doctor in three days. ADDITIONAL INFORMATION Vomiting [6Yr-Adult] Vomiting is a common symptom that may be due to different causes. These include gastroenteritis ("stomach flu"), food poisoning and gastritis. There are other more serious causes of vomiting which may be hard to diagnose early in the illness. Therefore, it is important to watch for the warning signs listed below. The main danger from repeated vomiting is dehydration. This is due to excess loss of water and minerals from the body. When this occurs, body fluids must be replaced. Home Care: If symptoms are severe, rest at home for the next 24 hours. You may use acetaminophen (Tylenol) or ibuprofen (Motrin, Advil) to control fever, unless another medicine was prescribed. [NOTE : If you have chronic liver or kidney disease or ever had a stomach ulcer or GI bleeding, talk with your doctor before using these medicines.] (Aspirin should never be used in anyone under 18 years of age who is ill with a fever. It may cause severe liver damage.) Avoid tobacco and alcohol use, which may worsen your symptoms. If medicines for vomiting were prescribed, take as directed. Once vomiting stops, then follow these guidelines: During The First 12-24 Hours follow the diet below: FRUIT JUICES: Apple, grape juice, clear fruit drinks, and electrolyte replacement drinks. BEVERAGES: Soft drinks without caffeine; mineral water (plain or flavored), decaffeinated tea and coffee. SOUPS: Clear broth, consomm and bouillon DESSERTS: Plain gelatin, popsicles and fruit juice bars. As you feel better, you may add 6-8 ounces of yogurt per day. During The Next 24 Hours you may add the following to the above: Hot cereal, plain toast, bread, rolls, crackers Plain noodles, rice, mashed potatoes, chicken noodle or rice soup Unsweetened canned fruit (avoid pineapple), bananas Limit caffeine and chocolate. No spices or seasonings except salt. During The Next 24 Hours Gradually resume a normal diet, as you feel better and your symptoms lessen. Follow Up with your doctor as advised if you are not improving over the next 2-3 days. Get Prompt Medical Attention if any of the following occur: Constant right-sided lower abdominal pain or increasing general abdominal pain Continued vomiting (unable to keep liquids down) for 24 hours Frequent diarrhea (more than 5 times a day); blood (red or black color) or mucus in diarrhea Reduced urine output or extreme thirst Weakness, dizziness or fainting Unusually drowsy or confused Fever of 100.4F (38C) oral or higher, not better with fever medication Yellow color of the eyes or skin Abdominal Pain, Unknown Cause (Female) The exact cause of your abdominal (stomach) pain is not certain. This does not mean that this is something to worry about, or the right tests were not done. Everyone likes to know the exact cause of the problem, but sometimes with abdominal pain, there is no clear-cut cause, and this could be a good thing. The good news is that your symptoms can be treated, and you will feel better. Your condition does not seem serious now; however, sometimes the signs of a serious problem may take more time to appear. For this reason,it is important for you to watch for any new symptoms, problems,or worsening of your condition. Over the next few days, the abdominal pain may come and go, or be continuous. Other common symptoms can include nausea and vomiting. Sometimes it can be difficult to tell if you feel nauseous, you may just feel bad and not associate that feeling with nausea. Constipation, diarrhea, and a fever may go along with the pain. The pain may continue even if treated correctly over the following days. Depending on how things go, sometimes the cause can become clear and may require further or different treatment. Additional evaluations, medications, or tests may be needed. Home care Your health care provider may prescribe medications for pain, symptoms, or an infection. Follow the health care provider's instructions for taking these medications. General care Rest until your next exam. No strenuous activities. Try to find positions that ease discomfort. A small pillow placed on the abdomen may help relieve pain. Something warm on your abdomen (such as a heating pad) may help, but be careful not to burn yourself. Diet Do not force yourself to eat, especially if having cramps, vomiting, or diarrhea. Water is important so you do not get dehydrated. Soup may also be good. Sports drinks may also help, especially if they are not too acidic. Make sure you don't drink sugary drinks as this can make things worse. Take liquids in small amounts. Do not guzzle them. Caffeine sometimes makes the pain and cramping worse. Avoid dairy products if you have vomiting or diarrhea. Don't eat large amounts at a time. Wait a few minutes between bites. Eat a diet low in fiber (called a low-residue diet). Foods allowed include refined breads, white rice, fruit and vegetable juices without pulp, tender meats. These foods will pass more easily through the intestine. Avoid whole-grain foods, whole fruits and vegetables, meats, seeds and nuts, fried or fatty foods, dairy, alcohol and spicy foods until your symptoms go away. Follow-up care Follow up with your health care provider as instructed, or if your pain does not begin to improve in the next 24 hours. When to seek medical care Seek prompt medical care if any of the following occur: Pain gets worse or moves to the right lower abdomen New or worsening vomiting or diarrhea Swelling of the abdomen Unable to pass stool for more than three days Fever of 100.4F (38C) or higher, or as directed by your healthcare provider. Blood in vomit or bowel movements (dark red or black color) Jaundice (yellow color of eyes and skin) Weakness, dizziness Chest, arm, back, neck or jaw pain Unexpected vaginal bleeding or missed period Call 911 Call emergency services if any of the following occur: Trouble breathing Confusion Fainting or loss of consciousness Rapid heart rate Seizure Clear Liquid Diet Clear liquids are any liquid that you can see through as well as those that are very easy to digest. This is used while the body is recovering from irritation or infection of the stomach or intestinal tract. It may also be used before special procedures or surgery. This diet is to be used no more than three days. You may include the following items. Adults Adults should drink a total of 23 quarts of liquid per day. It may be easier to drink small frequent servings rather than a few large ones. Liquids can include: Fruit juices.Strained orange juice or lemonade (no pulp), apple, grape and cranberry juice, clear fruit drinks, sports drinks Beverages.Sport drinks, sodas, mineral water (plain or flavored), tea, black coffee, liquid gelatin (add twice the recommended amount of water) Soups.Clear broth, consomm, bouillon Desserts.Plain gelatin, popsicles, fruit juice bars Children Over 2 years old The following liquids are acceptable for children over age 2: Fruit juices.Strained orange juice or lemonade (no pulp), apple, grape and cranberry juice, clear fruit drinks Beverages. Sports drinks, sodas, mineral water (plain or flavored), tea, liquid gelatin (add twice the recommended amount of water) Soups. Clear broth, consomm, bouillon Desserts. Plain gelatin, popsicles, fruit juice bars Children under 2 years old Oral rehydration fluids such are available at drug stores and most grocery stores without a prescription. You have been given the following additional information: Vomiting (6Y-Adult) Abdominal Pain, Unknown Cause, (Female) Diet, Clear Liquid (Electronically signed by Fina Morillo P.A.-C 09/11/2016 20:39)
== END 2016-09-11 20:10 | disposition home or self-care (01) ==
LOC: ED SRH 17:03
DX: R11.2 Nausea with vomiting, unspecified (principal); E86.9 Volume depletion, unspecified; R10.9 Unspecified abdominal pain; G89.29 Other chronic pain; I10 Essential (primary) hypertension; E11.9 Type 2 diabetes mellitus without complications; Z79.899 Other long term (current) drug therapy; Z88.2 Allergy status to sulfonamides; F17.210 Nicotine dependence, cigarettes, uncomplicated; Z88.1 Allergy status to other antibiotic agents
CPT/HCPCS: 90004; 90100; 91643; 93070; 95059

== ENCOUNTER 2016-09-22 17:14 | Emergency (ER) | payer BC ==
--- NOTE | 2016-09-22 21:04 | ED ORDER SUMMARY ---
..... Patient: RIKY SCHMITT OrderSheet [facility] VisitID: [id number] [place] [address] 40y, F Registration Date/Time: 09/22/2016 ORDER SHEET Weight: 66.2 kg (stated) Allergies: ASA, Codeine, EES, Ibuprofen, PCN, Sulfa Antibiotics, Vicodin GENERAL ORDERS: CBC w Diff Urgent (18:31 09/22/2016 JBoardley R.N. per protocol) (Ack 18:34 PWeiler ER Tech1) (18:50 JBoardley R.N.) CMP Urgent (18:31 09/22/2016 JBoardley R.N. per protocol) (Ack 18:34 PWeiler ER Tech1) (18:50 JBoardley R.N.) UA-Culture if indicated Urgent (18:31 09/22/2016 JBoardley R.N. per protocol) (Ack 18:34 PWeiler ER Tech1) (18:50 JBoardley R.N.) Urine Urgent (18:36 09/22/2016 HBivens A.R.N.P.) (Ack 18:37 PWeiler ER Tech1) (18:50 JBoardley R.N.) Urine Drug Screen Urgent (18:36 09/22/2016 HBivens A.R.N.P.) (Ack 18:37 PWeiler ER Tech1) (18:50 JBoardley R.N.) Lipase Urgent (18:36 09/22/2016 HBivens A.R.N.P.) (Ack 18:37 PWeiler ER Tech1) (18:50 JBoardley R.N.) Amylase Urgent (18:36 09/22/2016 HBivens A.R.N.P.) (Ack 18:37 PWeiler ER Tech1) (18:50 JBoardley R.N.) Sed Rate Urgent (19:26 09/22/2016 HBivens A.R.N.P.) (19:30 AMcQuoid ER Tech1) MEDICATION ORDERS: IV FLUIDS: Zofran IV 4 mg (NOW) (18:31 09/22/2016 JBoardley R.N. per protocol) (18:33 JBoardley R.N.) IV NS : initial bolus none -, then 1000 mL/hr for X1 (NOW) (18:31 09/22/2016 JBoardley R.N. per protocol) (18:33 JBoardley R.N.) IV Saline Lock (18:36 09/22/2016 HBivens A.R.N.P.) (Ack 18:59 JBoardley R.N.) Reglan IV 10 mg (NOW) (20:58 09/22/2016 HBivens A.R.N.P.) (Ack 21:01 JSanders R.N.) (21:16 JSanders R.N.) ORDER SHEET NOTES: [Electronically signed by Ashley Ragland R.N. (21:25 09/22/2016)] [Electronically signed by Clare Harding A.R.N.P. (22:45 09/22/2016)] [Electronically locked/signed by Ashley Ragland R.N. (21:25 09/22/2016)]
--- NOTE | 2016-09-22 21:04 | ED NURSING NOTES ---
Clinical Report - Nurses [facility] [address] [place] [address] 09/22/2016 17:15 Patient: RIKY SCHMITT TRIAGE Triage time 17:47. Acuity: LEVEL 3. Chief Complaint: ABDOMINAL PAIN, NAUSEA and VOMITING. 17:47 09/22/16. 17:47 09/22/16. --17:51 Jacky Ferrell R.N. 18:12 09/22/16. BP: 160/87. HR: 51. O2 saturation: 98%. --18:13 Harley Carroll R.N. Weight: 66.2 kg stated. Height/Length: 65 inches Per Patient. BMI: 24.3. --17:48 Jacky Ferrell R.N. Medications Abilify 5 mg hs . Albuterol Sulfate HFA Inhalation. Omeprazole. Phenergan. Reglan. Sertraline. Zofran. --17:50 Jacky Ferrell R.N. Medication/allergy information source: the patient. --17:51 Jacky Ferrell R.N. Allergies ASA. Codeine. EES. Ibuprofen. PCN. Sulfa Antibiotics. Vicodin. --17:50 Jacky Ferrell R.N. History Arrived by private vehicle. Historian: patient. Accompanied by family. Primary physician (WILLY HARVEY). 17:47 09/22/16. ( This AM, pt with history of gastroparesis). 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 PAST MEDICAL HX: Immunizations: up-to-date. Last normal menstrual period- 3 weeks ago. SOCIAL HX: Current every day light tobacco smoker (cigarette)- less than 1/2 a pack per day. No alcohol use or drug use. No recent travel. No infectious disease exposure. No known contact with a sick individual. ABUSE ASSESSMENT: No report of abuse. FALL RISK ASSESSMENT: Fall risk assessment completed. No fall risk identified. NUTRITIONAL RISK ASSESSMENT: The nutritional risk assessment revealed no deficiencies. FUNCTIONAL ASSESSMENT: Functional assessment: no impairments noted. LEARNING NEEDS ASSESSMENT: The learning needs assessment revealed no barriers. SKIN INTEGRITY ASSESSMENT: Skin integrity risk assessment completed. No skin integrity risk identified. --17:51 Jacky Ferrell R.N. PROBLEMS: Diabetes Mellitus. Hypertension. Dehydration. Abdominal Pain. Vomiting. Murmur . SICKLE CELL TRAIT. Gastroparesis. Diabetes Mellitus Type 2. --17:50 Jacky Ferrell R.N. ADDITIONAL SURGERIES: Endoscopy. Knee Surgery. Tonsillectomy. --17:50 Jacky Ferrell R.N. Assessment 17:47 09/22/16. --17:51 Jacky Ferrell R.N. Interventions 17:47 09/22/16. 17:47 09/22/16. ID and allergy band on patient. To treatment room. --17:51 Jacky Ferrell R.N. PHYSICAL ASSESSMENT 17:49 09/22/16. Ambulatory to room. GENERAL / NEURO / PSYCH: Alert. Oriented X 4. Appears in pain. RESPIRATORY: Respirations not labored. CVS: Capillary refill less than 2 seconds. SKIN: Skin is warm and dry. --17:49 Jacky Ferrell R.N. NURSING PROGRESS NOTES 17:49 09/22/16. The plan of care for this patient has been created. Patient gowned. Head of bed elevated. Two patient identifiers checked. Call light placed in reach. Side rails up x 2. Bed placed in lowest position. Brakes of bed on. --17:49 Jacky Ferrell R.N. 18:14 09/22/2016 Site #1 started via IV in the right forearm with an 20g angiocath using 1% intra-dermal lidocaine, with good blood return; one attempt. Blood drawn: rainbow set. Labeled in the presence of the patient and sent to the lab. Saline lock flushed. --18:14 Harley Carroll R.N. Blood samples drawn. --18:26 Harley Carroll R.N. 18:17 09/22/2016 Site #2 started via IV in the right antecubital space with an 20g angiocath, with aseptic technique and good blood return; one attempt. Blood drawn: rainbow set. Labeled in the presence of the patient. Saline lock flushed with 10 mL saline (by Elias Daigle RN). --18:32 Jacky Ferrell R.N. 18:23 09/22/2016 Started bag #1 1000 mL IV Fluids IV NS (Saline); at 1000 mL/hr over 1 hour(s) via site #2. Allergies verified and confirmed 5 rights. IV patency established. IV site checked: no pain, redness, or swelling. IV flushed thoroughly pre- and post-medication administration. Completed per protocol. --18:33 Jacky Ferrell R.N. 18:33 09/22/2016 Zofran (Ondansetron HCl) IVP 4 mg given. via site #2. Allergies verified and confirmed 5 rights. IV patency established. IV site checked: no pain, redness, or swelling. IV flushed thoroughly pre- and post-medication administration. IVP given by RN. --18:33 Jacky Ferrell R.N. 18:34 09/22/2016 Site #1 removed. Catheter intact (placed in AC). --18:34 Jacky Ferrell R.N. 19:17 09/22/16. Care transferred and report given. --19:17 Jacky Ferrell R.N. Care transferred and report received (Jacky, CRISTINO). --19:17 Ashley Ragland R.N. 19:24 09/22/16. ( patient crying saying she is in pain and still has a little nausea, she requested a warm blanket, this was given,). --19:24 Ashley Ragland R.N. 19:21 09/22/16. BP: 153/68 (large adult cuff) taken on the left arm, while sitting. HR: 56. RR: 20. O2 saturation: 100% on room air. Pain level now: 11/12. --19:24 Ashley Ragland R.N. 19:34 09/22/2016 IV Saline Lock Drip IV Discontinued: (entered in error). --19:34 Jacky Ferrell R.N. 19:55 09/22/16. ( Patient still crying in pain, nausea has gone away, friend at bedside). --19:55 Ashley Ragland R.NRaulito 19:55 09/22/16. BP: 169/80 (regular adult cuff) taken on the left arm, while sitting. HR: 56. RR: 20. O2 saturation: 99% on room air. --19:56 Ashley Ragland R.NRaulito 20:04 09/22/16. ( Spoke to patient she is still in extreme pain, she is unable to have any strong narcotics, she would like to be admitted. CUBING MACHINE TENDER notified of this.). --20:04 Ashley Ragland R.NRaulito 20:19 09/22/16. BP: 170/90 (regular adult cuff) taken on the left arm. HR: 57. RR: 20. O2 saturation: 100% on room air. --20:20 Ashley Ragland R.NRaulito 20:20 09/22/16. ( Patient states she vomited x 1, still in significant amount of pain, Dr Martino is being called to see about admit.). --20:20 Ashley Ragland R.NRaulito 20:49 09/22/16. ( Patient is not going to be admitted per Dr Martino). --20:49 Ashley Ragland R.NRaulito 21:08 09/22/16. --21:08 Ashley Ragland R.NRaulito 21:07 09/22/16. BP: 162/82. HR: 66. RR: 20. O2 saturation: 100% on room air. Pain level now: 11/12. --21:08 Ashley Ragland R.NRaulito 21:09/22/16. ( Patient informed she will not be admitted, behavioral intervention specialist will drive her home). --21:09 Ashley Ragland R.NRaulito 21:09/22/16. BP: 162/71 (regular adult cuff) taken on the left arm, while sitting. HR: 74. RR: 22. O2 saturation: 100% on room air. Pain level now: 11/12. --21:10 Ashley Ragland R.NRaulito 21:10 09/22/16. BP: 158/59 (regular adult cuff) taken on the left arm. HR: 94. RR: 22. O2 saturation: 100% on room air. --21:11 Ashley Ragland R.N. 21:12 09/22/16. BP: 147/77 (regular adult cuff) taken on the left arm. HR: 105. RR: 22. O2 saturation: 97% on room air. --21:13 Ashley Ragland R.N. 21:16 09/22/2016 Reglan (Metoclopramide HCl) IVP 10 mg given over 4 minute(s) via site #2. Allergies verified and confirmed 5 rights. IV patency established. IV site checked: no pain, redness, or swelling. IV flushed thoroughly pre- and post-medication administration. IVP given by RN. --21:16 Ashley Ragland R.N. 21:16 09/22/2016 IV Saline Lock Drip IV Discontinued: bag #1 completed. Total amount infused: 1000 mL. IV patency established. IV site checked: no pain, redness, or swelling. IV flushed thoroughly. --21:16 Ashley Ragland R.N. 21:15 09/22/16. BP: 125/50 (regular adult cuff) taken on the left arm. HR: 91. RR: 22. O2 saturation: 99% on room air. Pain level now: 11/12. --21:17 Ashley Ragland R.N. DISPOSITION / DISCHARGE 21:09/22/2016 Site #2 removed upon discharge. --21:23 Ashley Ragland R.N. 21:24 09/22/16. Departure time: 21:Sep 22 2016. Condition at departure: improved. No learning barriers present. Discharge instructions provided and reviewed with the patient. Treatments reviewed (bland diet). Patient verbalized understanding. Written instructions provided in Faroese. The patient was discharged by the physician warehouse assistant. She was discharged home and accompanied by behavioral intervention specialist. She left the Emergency Department ambulatory and via private vehicle. Beverage Distiller driving. --21:24 Ashley Ragland R.N. 21:23 09/22/16. BP: 111/78 (regular adult cuff) taken on the left arm, while sitting. HR: 94. RR: 18. O2 saturation: 100% on room air. Temp: 98.2 F (oral). Pain level now: 05/15. --21:24 Ashley Ragland R.N. Locked/Released at 09/22/2016 21:25 by Ashley Ragland R.N.
--- NOTE | 2016-09-22 21:04 | ED NURSING NOTES ---
Clinical Report - Nurses [facility] [address] [place] [address] 09/22/2016 17:15 Patient: RIKY SCHMITT TRIAGE Triage time 17:47. Acuity: LEVEL 3. Chief Complaint: ABDOMINAL PAIN, NAUSEA and VOMITING. 17:47 09/22/16. 17:47 09/22/16. --17:51 Jacky Ferrell R.N. 18:12 09/22/16. BP: 160/87. HR: 51. O2 saturation: 98%. --18:13 Harley Carroll R.N. Weight: 66.2 kg stated. Height/Length: 65 inches Per Patient. BMI: 24.3. --17:48 Jacky Ferrell R.N. Medications Abilify 5 mg hs . Albuterol Sulfate HFA Inhalation. Omeprazole. Phenergan. Reglan. Sertraline. Zofran. --17:50 Jacky Ferrell R.N. Medication/allergy information source: the patient. --17:51 Jacky Ferrell R.N. Allergies ASA. Codeine. EES. Ibuprofen. PCN. Sulfa Antibiotics. Vicodin. --17:50 Jacky Ferrell R.N. History Arrived by private vehicle. Historian: patient. Accompanied by family. Primary physician (WILLY HARVEY). 17:47 09/22/16. ( This AM, pt with history of gastroparesis). 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 PAST MEDICAL HX: Immunizations: up-to-date. Last normal menstrual period- 3 weeks ago. SOCIAL HX: Current every day light tobacco smoker (cigarette)- less than 1/2 a pack per day. No alcohol use or drug use. No recent travel. No infectious disease exposure. No known contact with a sick individual. ABUSE ASSESSMENT: No report of abuse. FALL RISK ASSESSMENT: Fall risk assessment completed. No fall risk identified. NUTRITIONAL RISK ASSESSMENT: The nutritional risk assessment revealed no deficiencies. FUNCTIONAL ASSESSMENT: Functional assessment: no impairments noted. LEARNING NEEDS ASSESSMENT: The learning needs assessment revealed no barriers. SKIN INTEGRITY ASSESSMENT: Skin integrity risk assessment completed. No skin integrity risk identified. --17:51 Jacky Ferrell R.N. PROBLEMS: Diabetes Mellitus. Hypertension. Dehydration. Abdominal Pain. Vomiting. Murmur . SICKLE CELL TRAIT. Gastroparesis. Diabetes Mellitus Type 2. --17:50 Jacky Ferrell R.N. ADDITIONAL SURGERIES: Endoscopy. Knee Surgery. Tonsillectomy. --17:50 Jacky Ferrell R.N. Assessment 17:47 09/22/16. --17:51 Jacky Ferrell R.N. Interventions 17:47 09/22/16. 17:47 09/22/16. ID and allergy band on patient. To treatment room. --17:51 Jacky Ferrell R.N. PHYSICAL ASSESSMENT 17:49 09/22/16. Ambulatory to room. GENERAL / NEURO / PSYCH: Alert. Oriented X 4. Appears in pain. RESPIRATORY: Respirations not labored. CVS: Capillary refill less than 2 seconds. SKIN: Skin is warm and dry. --17:49 Jacky Ferrell R.N. NURSING PROGRESS NOTES 17:49 09/22/16. The plan of care for this patient has been created. Patient gowned. Head of bed elevated. Two patient identifiers checked. Call light placed in reach. Side rails up x 2. Bed placed in lowest position. Brakes of bed on. --17:49 Jacky Ferrell R.N. 18:14 09/22/2016 Site #1 started via IV in the right forearm with an 20g angiocath using 1% intra-dermal lidocaine, with good blood return; one attempt. Blood drawn: rainbow set. Labeled in the presence of the patient and sent to the lab. Saline lock flushed. --18:14 Hraley Carroll R.N. Blood samples drawn. --18:26 Harley Carroll R.N. 18:17 09/22/2016 Site #2 started via IV in the right antecubital space with an 20g angiocath, with aseptic technique and good blood return; one attempt. Blood drawn: rainbow set. Labeled in the presence of the patient. Saline lock flushed with 10 mL saline (by Elias Daigle RN). --18:32 Jacky Ferrell R.N. 18:23 09/22/2016 Started bag #1 1000 mL IV Fluids IV NS (Saline); at 1000 mL/hr over 1 hour(s) via site #2. Allergies verified and confirmed 5 rights. IV patency established. IV site checked: no pain, redness, or swelling. IV flushed thoroughly pre- and post-medication administration. Completed per protocol. --18:33 Jacky Ferrell R.N. 18:33 09/22/2016 Zofran (Ondansetron HCl) IVP 4 mg given. via site #2. Allergies verified and confirmed 5 rights. IV patency established. IV site checked: no pain, redness, or swelling. IV flushed thoroughly pre- and post-medication administration. IVP given by RN. --18:33 Jacky Ferrell R.N. 18:34 09/22/2016 Site #1 removed. Catheter intact (placed in AC). --18:34 Jacky Ferrell R.N. 19:17 09/22/16. Care transferred and report given. --19:17 Jacky Ferrell R.N. Care transferred and report received (Jacky, CRISTINO). --19:17 Ashley Ragland R.N. 19:24 09/22/16. ( patient crying saying she is in pain and still has a little nausea, she requested a warm blanket, this was given,). --19:24 Ashley Ragland R.N. 19:21 09/22/16. BP: 153/68 (large adult cuff) taken on the left arm, while sitting. HR: 56. RR: 20. O2 saturation: 100% on room air. Pain level now: 11/12. --19:24 Ashley Ragland R.N. 19:34 09/22/2016 IV Saline Lock Drip IV Discontinued: (entered in error). --19:34 Jacky Ferrell R.N. 19:55 09/22/16. ( Patient still crying in pain, nausea has gone away, friend at bedside). --19:55 Ashley Ragland R.NRaulito 19:55 09/22/16. BP: 169/80 (regular adult cuff) taken on the left arm, while sitting. HR: 56. RR: 20. O2 saturation: 99% on room air. --19:56 Ashley Ragland R.NRaulito 20:04 09/22/16. ( Spoke to patient she is still in extreme pain, she is unable to have any strong narcotics, she would like to be admitted. RENTAL BOATS CARETAKER notified of this.). --20:04 Ashley Ragland R.NRaulito 20:19 09/22/16. BP: 170/90 (regular adult cuff) taken on the left arm. HR: 57. RR: 20. O2 saturation: 100% on room air. --20:20 Ashley Ragland R.NRaulito 20:20 09/22/16. ( Patient states she vomited x 1, still in significant amount of pain, Dr Martino is being called to see about admit.). --20:20 Ashley Ragland R.NRaulito 20:49 09/22/16. ( Patient is not going to be admitted per Dr Martino). --20:49 Ashley Ragland R.NRaulito 21:08 09/22/16. --21:08 Ashley Ragland R.NRaulito 21:07 09/22/16. BP: 162/82. HR: 66. RR: 20. O2 saturation: 100% on room air. Pain level now: 11/12. --21:08 Ashley Ragland R.NRaulito 21:09/22/16. ( Patient informed she will not be admitted, impregnating helper will drive her home). --21:09 Ashley Ragland R.NRaulito 21:09/22/16. BP: 162/71 (regular adult cuff) taken on the left arm, while sitting. HR: 74. RR: 22. O2 saturation: 100% on room air. Pain level now: 11/12. --21:10 Ashley Ragland R.NRaulito 21:10 09/22/16. BP: 158/59 (regular adult cuff) taken on the left arm. HR: 94. RR: 22. O2 saturation: 100% on room air. --21:11 Ashley Ragland R.N. 21:12 09/22/16. BP: 147/77 (regular adult cuff) taken on the left arm. HR: 105. RR: 22. O2 saturation: 97% on room air. --21:13 Ashley Ragland R.N. 21:16 09/22/2016 Reglan (Metoclopramide HCl) IVP 10 mg given over 4 minute(s) via site #2. Allergies verified and confirmed 5 rights. IV patency established. IV site checked: no pain, redness, or swelling. IV flushed thoroughly pre- and post-medication administration. IVP given by RN. --21:16 Ashley Ragland R.N. 21:16 09/22/2016 IV Saline Lock Drip IV Discontinued: bag #1 completed. Total amount infused: 1000 mL. IV patency established. IV site checked: no pain, redness, or swelling. IV flushed thoroughly. --21:16 Ashley Ragland R.N. 21:15 09/22/16. BP: 125/50 (regular adult cuff) taken on the left arm. HR: 91. RR: 22. O2 saturation: 99% on room air. Pain level now: 11/12. --21:17 Ashley Ragland R.N. DISPOSITION / DISCHARGE 21:09/22/2016 Site #2 removed upon discharge. --21:23 Ashley Ragland R.N. 21:24 09/22/16. Departure time: 21:Sep 22 2016. Condition at departure: improved. No learning barriers present. Discharge instructions provided and reviewed with the patient. Treatments reviewed (bland diet). Patient verbalized understanding. Written instructions provided in German. The patient was discharged by the physician pediatric dental assistant. She was discharged home and accompanied by impregnating helper. She left the Emergency Department ambulatory and via private vehicle. Access Clinician driving. --21:24 Ashley Ragland R.N. 21:23 09/22/16. BP: 111/78 (regular adult cuff) taken on the left arm, while sitting. HR: 94. RR: 18. O2 saturation: 100% on room air. Temp: 98.2 F (oral). Pain level now: 05/15. --21:24 Ashley Ragland R.N. Locked/Released at 09/22/2016 21:25 by Ashley Ragland R.N.
--- NOTE | 2016-09-22 21:04 | ED ORDER SUMMARY ---
..... Patient: RIKY SCHMITT OrderSheet [facility] VisitID: [id number] [place] [address] 40y, F Registration Date/Time: 09/22/2016 ORDER SHEET Weight: 66.2 kg (stated) Allergies: ASA, Codeine, EES, Ibuprofen, PCN, Sulfa Antibiotics, Vicodin GENERAL ORDERS: CBC w Diff Urgent (18:31 09/22/2016 JBoardley R.N. per protocol) (Ack 18:34 PWeiler ER Tech1) (18:50 JBoardley R.N.) CMP Urgent (18:31 09/22/2016 JBoardley R.N. per protocol) (Ack 18:34 PWeiler ER Tech1) (18:50 JBoardley R.N.) UA-Culture if indicated Urgent (18:31 09/22/2016 JBoardley R.N. per protocol) (Ack 18:34 PWeiler ER Tech1) (18:50 JBoardley R.N.) Urine Urgent (18:36 09/22/2016 HBivens A.R.N.P.) (Ack 18:37 PWeiler ER Tech1) (18:50 JBoardley R.N.) Urine Drug Screen Urgent (18:36 09/22/2016 HBivens A.R.N.P.) (Ack 18:37 PWeiler ER Tech1) (18:50 JBoardley R.N.) Lipase Urgent (18:36 09/22/2016 HBivens A.R.N.P.) (Ack 18:37 PWeiler ER Tech1) (18:50 JBoardley R.N.) Amylase Urgent (18:36 09/22/2016 HBivens A.R.N.P.) (Ack 18:37 PWeiler ER Tech1) (18:50 JBoardley R.N.) Sed Rate Urgent (19:26 09/22/2016 HBivens A.R.N.P.) (19:30 AMcQuoid ER Tech1) MEDICATION ORDERS: IV FLUIDS: Zofran IV 4 mg (NOW) (18:31 09/22/2016 JBoardley R.N. per protocol) (18:33 JBoardley R.N.) IV NS : initial bolus none -, then 1000 mL/hr for X1 (NOW) (18:31 09/22/2016 JBoardley R.N. per protocol) (18:33 JBoardley R.N.) IV Saline Lock (18:36 09/22/2016 HBivens A.R.N.P.) (Ack 18:59 JBoardley R.N.) Reglan IV 10 mg (NOW) (20:58 09/22/2016 HBivens A.R.N.P.) (Ack 21:01 JSanders R.N.) (21:16 JSanders R.N.) ORDER SHEET NOTES: [Electronically signed by Ashley Ragland R.N. (21:25 09/22/2016)] [Electronically signed by Clare Harding A.R.N.P. (22:45 09/22/2016)] [Electronically locked/signed by Ashley Ragland R.N. (21:25 09/22/2016)]
--- NOTE | 2016-09-22 21:04 | ED CLINICAL REPORT ---
Clinical Report - Physicians/Mid Levels [facility] [address] [place] [address] 09/22/2016 17:15 Patient: RIKY SCHMITT Time Seen: 17:57; initial patient contact, initial documentation, patient care assumed. Arrived- By private vehicle. Historian- patient and family. HISTORY OF PRESENT ILLNESS Chief Complaint: VOMITING. This started today and is still present. It was abrupt in onset. No recent travel. She has had nausea and severe abdominal pain. The pain is described as generalized. She has had severe vomiting. The vomiting has occurred numerous times and has been bilious. No feculent emesis, blood-tinged emesis, coffee-grounds emesis, frankly bloody emesis or unusually dark emesis. No constipation, flank pain, history of possible bad food exposure, known contact with a sick individual or change in routine. Has not recently been camping or on antibiotics. The illness is described as severe. (took zofran and phenergan suppository). Similar symptoms previously: Frequently, as bad. Recent medical care: The patient was seen recently at this facility in the emergency department. ( pt seen on 07/18 by me for same thing, dx v, rx zofran and pepcid, pt back on 07/20 for same thing, labs and ct abd done, dx v, rx zofran given, back on 08/04 for same thing, dx v, rx zofran, phenergan supp and hydrocodone, back on 08/06 same thing, dx v, rx zofran and phenergan supp, back on 09/11 for same thing, dx v, rx phenergan, reglan and and more phenergan supp, says she was admitted only 1 time for this and it was [facility], she was there for 3 days and they couldn't find anything wrong). REVIEW OF SYSTEMS No fever, difficulty with urination, dark urine, chest pain or difficulty breathing. Denies current . All systems otherwise negative, except as recorded above. PAST HISTORY See nurses notes. PROBLEMS: Diabetes Mellitus. Hypertension. Dehydration. Abdominal Pain. Vomiting. Murmur . SICKLE CELL TRAIT. Gastroparesis. Diabetes Mellitus Type 2. --17:50 Jacky Ferrell R.N. ADDITIONAL SURGERIES: Endoscopy. Knee Surgery. Tonsillectomy. --17:50 Jacky Ferrell R.N. SOCIAL HISTORY Light tobacco smoker. No alcohol use or drug use. No recent travel. Is a local resident. FAMILY HISTORY Negative. ADDITIONAL NOTES The nursing notes have been reviewed with agreement regarding the chief complaint, HPI, ROS, PMH and patient medications and allergies. PHYSICAL EXAM Vital Signs: 09/22/2016 18:12 BP: 160/87. HR: 51. O2 saturation: 98%. Have been reviewed as normal and appear to be correct. Appearance: Alert. Oriented X3. No acute distress. Anxious. Eyes: Pupils equal, round and reactive to light. Eyes normal inspection. Neck: Normal inspection. Neck supple. CVS: Normal heart rate and rhythm. Heart sounds normal. Pulses normal. Respiratory: No respiratory distress. Breath sounds normal. Abdomen: Soft and nontender. Bowel sounds normal. No organomegaly. No mass. Back: Normal inspection. Skin: Skin warm and dry. Normal skin color. No rash. Normal skin turgor. Extremities: Extremities exhibit normal ROM. No lower extremity edema. Neuro: Oriented X 3. No motor deficit. No sensory deficit. LABS, X-RAYS, AND EKG Laboratory Tests: UA-Culture if indicated: (TARYN: 09/22/2016 18:10) ( MsgRcvd 09/22/2016 18:59) Final results Test Result Flag Units (Reference) URINE COLOR YELLOW URINE APPEARANCE CLEAR URINE GLUCOSE NEGATIVE (NEGATIVE) URINE BILIRUBIN NEGATIVE (NEGATIVE) URINE KETONE TRACE (NEGATIVE) URINE SPECIFIC GRAVITY 1.020 (1.010-1.030) URINE PH 7.0 (5.0-8.0) URINE PROTEIN NEGATIVE (NEGATIVE) URINE UROBILINOGEN 0.2 EU/dL (0.2-1.0) URINE NITRITE NEGATIVE (NEGATIVE) URINE BLOOD NEGATIVE (NEGATIVE) URINE LEUK ESTERASE NEGATIVE (NEGATIVE) URINE RBC NONE SEEN rbc/hpf (0-1) URINE WBC 0-1 wbc/hpf (0-1) URINE EPITHELIAL CELLS 1-3 EPI/hpf (0-5) URINE BACTERIA MODERATE (2+ TO 3+) (NONE SEEN) URINE COMMENT CULTURE INDICATED URINE CULTURES ARE SET-UP BASED ON THE FOLLOWING CRITERIA:POSITIVE NITRITEPOSITIVE LEUKOCYTE ESTERASEGREATER THAN 10 WHITE BLOOD CELLSMODERATE (2+) OR GREATER BACTERIA Urine: (TARYN: 09/22/2016 18:10) ( [facility] 09/22/2016 18:55) Final results Test Result Flag Units (Reference) URINE NEGATIVE CBC w Diff: (TARYN: 09/22/2016 18:10) ( [facility] 09/22/2016 18:44) Final results Test Result Flag Units (Reference) WHITE BLOOD COUNT 9.1 K/uL (4.5-11.5) RED BLOOD COUNT 4.67 M/uL (4.00-5.20) HEMOGLOBIN 12.6 gm/dL (12.0-16.0) HEMATOCRIT 38.2 % (36.0-46.0) MEAN CELL VOLUME 82 fL (80-100) MEAN CORPUSCULAR HGB 27 pg (26-34) MEAN CORPUSCULAR HGB CONC 33 g/dL (31-37) RED CELL DISTRIBUTION WIDTH 17.4 H % (11.6-14.8) PLATELET COUNT 332 K/uL (150-400) NEUTROPHIL % 85.2 H % (50-75) LYMPH % 10.8 L % (25-40) MONO % 3.3 % (3-14) EOSINOPHIL % 0.7 % (0-4) BASOPHIL % 0 % (0-2) Urine Drug Screen: (TARYN: 09/22/2016 18:10) ( [facility] 09/22/2016 19:14) Final results Test Result Flag Units (Reference) AMPHETAMINE/METHAMPHETAMINE NEGATIVE (NEGATIVE) BARBITURATE NEGATIVE (NEGATIVE) BENZODIAZEPINE NEGATIVE (NEGATIVE) CANNABINOID POSITIVE H (NEGATIVE) COCAINE NEGATIVE (NEGATIVE) ECSTASY NEGATIVE (NEGATIVE) METHADONE NEGATIVE (NEGATIVE) OPIATE NEGATIVE (NEGATIVE) The urine drug screen is a qualitative screening test fordrug overdose and abuse. All screen results should beconsidered as presumptive.Drugs screened for are as follows:BenzodiazepinesCocaineAmphetamines/MetamphetaminesTHC (Tetrahydrocannabinol)OpiatesBarbituratesEcstasyMethadonePositive results are unconfirmed. For confirmation, notifythe lab for the specimen to be sent to the reference lab.All confirmations must be performed by a differentmethodology.The ingestion of natural herbal and plant productscontaining Ephedra/Ephedra metabolites can produce in urineone or more substances capable of cross reacting withamphetamine/methamphetamine immunoassays. These testsprovide a preliminary result only. A more specificalternative chemical method must be used to obtain aconfirmed analytical result. Lipase: (TARYN: 09/22/2016 18:10) ( [facility] Final results Test Result Flag Units (Reference) LIPASE 50 L U/L (73-393) AMYLASE 70 U/L (25-115) CMP: (TARYN: 09/22/2016 18:10) ( [facility] 18[facility]56) Final results Test Result Flag Units (Reference) GLUCOSE 175 H mg/dL (70-110) BUN 5 L mg/dL (7-18) CREATININE 0.8 mg/dL (0.6-1.3) Estimated GFR >60 mL/min Estimated GFR- >60 mL/min Note: Persistent reduction over 3 months in eGFR<60 mL/min/1.73 m2 defines CKD. Patients with eGFR values>=60 mL/min/1.73 m2 may also have CKD if evidence ofpersistent proteinuria. Additional information may be foundat www.kidney.org. SODIUM 140 mmol/L (136-145) POTASSIUM 4.0 mmol/L (3.5-5.1) CHLORIDE 102 mmol/L (98-107) CARBON DIOXIDE 29 mmol/L (21-32) CALCIUM 9.1 mg/dL (8.5-10.1) TOTAL PROTEIN 8.4 H g/dL (6.4-8.2) ALBUMIN 3.9 g/dL (3.3-5.0) BILIRUBIN, TOTAL 0.3 mg/dL (0.0-1.0) ALKALINE PHOSPHATASE 62 U/L (46-116) AST (SGOT) 13 L U/L (15-37) ALT (SGPT) 16 U/L (12-78) . PROGRESS AND PROCEDURES Course of Care: pt asked x3 during initial hx and exam if she smoked 'pot, pt denied each time 1934. spoke to pt and spouse about tx options, pt aware labs were normal, maxed out on controlled substances per policy here, allergic to toradol, so couldn't give that, pt has all her anti-emetics, pain meds, bentyl and stuff at home 1949. pt telling nurse she would like to be admitted 20:23 09/22/16. Spoke to Dr Martino re pt's case, and mutually agreed pt's labs normal, vs normal, no vomiting here, pt only spitting and marijauna hx don't qualify for admit 2054. had discussion with pt re affects of marijuana and cyclic vomiting, encouraged to stop using pot, pt now telling me reason she denied marijuana use was because she thought I meant did she use any today, encouraged pt to f/u with pcp or gi, agreed to give one more dose of nausea med prior to dc. 09/22/2016 20:19 BP: 170/90. HR: 57. RR: 20. O2 saturation: 100%. Vital Signs: have been reviewed as normal and appear to be correct. Patient and family counseled in person regarding the patient's stable condition, test results and diagnosis. Differential Diagnosis: I considered gastritis, peptic ulcer disease, gastroesophageal reflux disease, gastroparesis, Crohn's disease, ulcerative colitis, small bowel obstruction, colonic obstruction, colon cancer, gastroenteritis, cholecystitis, pancreatitis, viral syndrome, enterocolitis, urinary tract infection, hepatitis, sepsis, drugs, hyperthyroidism, hyperparathyroidism, and psychogenic etiology as a possible cause of vomiting in this patient. This is a partial list of diagnoses considered. Above considerations are based on history, physical exam, reassessment and laboratory data. Differential diagnosis was discussed with patient and patient's spouse. Disposition: Discharged home in good and improved condition (21:03). Condition: good and stable. CLINICAL IMPRESSION Intractable vomiting with nausea (Cyclic Vomiting). No dehydration or volume depletion. Not bilious. 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 INSTRUCTIONS Take clear liquids only (frequent sips) for the next 24 hours until better. May continue medications with sips only. Advance diet as tolerated. Avoid. Warnings: CONTROLLED SUBSTANCE WARNINGS: The reason for controlled substance is related to an acute exacerbation of chronic pain. Reviewed the risks tolerance and dependence. Discussed warnings with the patient (stop marijuana use). GENERAL WARNINGS: Return or contact your physician immediately if your condition worsens or changes unexpectedly, if not improving as expected, or if other problems arise. SPECIFICALLY, return if you develop pain in the abdomen or pelvis, fever, the inability to keep fluids down, blood in vomitus, blood in diarrhea, fainting or lightheadedness. Follow-up: Follow up with your doctor in about two days as needed. Call for an appointment. Summary of care provided to patient. Understanding of the discharge instructions verbalized by patient. Follow-up with: Eyla Ahn MD, Gastroenterology, [address] [place] [address], [address] [place] [address] Ave[address] , [place], [id number]; Pj Cannon MD, Gastroenterology, [address] [place] [address], [address] [place] [address], [address], [place], [id number]; Brigette Galaviz MD, Gastroenteroloy, [address] [place] [address], [address] [place] [address] [address], [place], [id number]; Johnatahn Stuart MD, Gastroenteroloy, [address] [place] [address], [address] [place] [address] [address], [place], [id number]; Iwona Brantley MD, Gastroenteroloy, [address] [place] [address], [address] [place] [address] [address], [place], [id number] Follow up in about two days as needed. Call for an appointment. Summary of care provided to patient. (Electronically signed by Clare Harding A.R.N.P. 09/22/2016 22:45)
--- NOTE | 2016-09-22 21:04 | ED CLINICAL REPORT ---
Clinical Report - Physicians/Mid Levels [facility] [address] [place] [address] 09/22/2016 17:15 Patient: RIKY SCHMITT Time Seen: 17:57; initial patient contact, initial documentation, patient care assumed. Arrived- By private vehicle. Historian- patient and family. HISTORY OF PRESENT ILLNESS Chief Complaint: VOMITING. This started today and is still present. It was abrupt in onset. No recent travel. She has had nausea and severe abdominal pain. The pain is described as generalized. She has had severe vomiting. The vomiting has occurred numerous times and has been bilious. No feculent emesis, blood-tinged emesis, coffee-grounds emesis, frankly bloody emesis or unusually dark emesis. No constipation, flank pain, history of possible bad food exposure, known contact with a sick individual or change in routine. Has not recently been camping or on antibiotics. The illness is described as severe. (took zofran and phenergan suppository). Similar symptoms previously: Frequently, as bad. Recent medical care: The patient was seen recently at this facility in the emergency department. ( pt seen on 07/18 by me for same thing, dx v, rx zofran and pepcid, pt back on 07/20 for same thing, labs and ct abd done, dx v, rx zofran given, back on 08/04 for same thing, dx v, rx zofran, phenergan supp and hydrocodone, back on 08/06 same thing, dx v, rx zofran and phenergan supp, back on 09/11 for same thing, dx v, rx phenergan, reglan and and more phenergan supp, says she was admitted only 1 time for this and it was at [facility], she was there for 3 days and they couldn't find anything wrong). REVIEW OF SYSTEMS No fever, difficulty with urination, dark urine, chest pain or difficulty breathing. Denies current . All systems otherwise negative, except as recorded above. PAST HISTORY See nurses notes. PROBLEMS: Diabetes Mellitus. Hypertension. Dehydration. Abdominal Pain. Vomiting. Murmur . SICKLE CELL TRAIT. Gastroparesis. Diabetes Mellitus Type 2. --17:50 Jacky Ferrell R.N. ADDITIONAL SURGERIES: Endoscopy. Knee Surgery. Tonsillectomy. --17:50 Jacky Ferrell R.N. SOCIAL HISTORY Light tobacco smoker. No alcohol use or drug use. No recent travel. Is a local resident. FAMILY HISTORY Negative. ADDITIONAL NOTES The nursing notes have been reviewed with agreement regarding the chief complaint, HPI, ROS, PMH and patient medications and allergies. PHYSICAL EXAM Vital Signs: 09/22/2016 18:12 BP: 160/87. HR: 51. O2 saturation: 98%. Have been reviewed as normal and appear to be correct. Appearance: Alert. Oriented X3. No acute distress. Anxious. Eyes: Pupils equal, round and reactive to light. Eyes normal inspection. Neck: Normal inspection. Neck supple. CVS: Normal heart rate and rhythm. Heart sounds normal. Pulses normal. Respiratory: No respiratory distress. Breath sounds normal. Abdomen: Soft and nontender. Bowel sounds normal. No organomegaly. No mass. Back: Normal inspection. Skin: Skin warm and dry. Normal skin color. No rash. Normal skin turgor. Extremities: Extremities exhibit normal ROM. No lower extremity edema. Neuro: Oriented X 3. No motor deficit. No sensory deficit. LABS, X-RAYS, AND EKG Laboratory Tests: UA-Culture if indicated: (TARYN: 09/22/2016 18:10) ( MsgRcvd 09/22/2016 18:59) Final results Test Result Flag Units (Reference) URINE COLOR YELLOW URINE APPEARANCE CLEAR URINE GLUCOSE NEGATIVE (NEGATIVE) URINE BILIRUBIN NEGATIVE (NEGATIVE) URINE KETONE TRACE (NEGATIVE) URINE SPECIFIC GRAVITY 1.020 (1.010-1.030) URINE PH 7.0 (5.0-8.0) URINE PROTEIN NEGATIVE (NEGATIVE) URINE UROBILINOGEN 0.2 EU/dL (0.2-1.0) URINE NITRITE NEGATIVE (NEGATIVE) URINE BLOOD NEGATIVE (NEGATIVE) URINE LEUK ESTERASE NEGATIVE (NEGATIVE) URINE RBC NONE SEEN rbc/hpf (0-1) URINE WBC 0-1 wbc/hpf (0-1) URINE EPITHELIAL CELLS 1-3 EPI/hpf (0-5) URINE BACTERIA MODERATE (2+ TO 3+) (NONE SEEN) URINE COMMENT CULTURE INDICATED URINE CULTURES ARE SET-UP BASED ON THE FOLLOWING CRITERIA:POSITIVE NITRITEPOSITIVE LEUKOCYTE ESTERASEGREATER THAN 10 WHITE BLOOD CELLSMODERATE (2+) OR GREATER BACTERIA Urine: (TARYN: 09/22/2016 18:10) ( [facility] 09/22/2016 18:55) Final results Test Result Flag Units (Reference) URINE NEGATIVE CBC w Diff: (TARYN: 09/22/2016 18:10) ( [facility] 09/22/2016 18:44) Final results Test Result Flag Units (Reference) WHITE BLOOD COUNT 9.1 K/uL (4.5-11.5) RED BLOOD COUNT 4.67 M/uL (4.00-5.20) HEMOGLOBIN 12.6 gm/dL (12.0-16.0) HEMATOCRIT 38.2 % (36.0-46.0) MEAN CELL VOLUME 82 fL (80-100) MEAN CORPUSCULAR HGB 27 pg (26-34) MEAN CORPUSCULAR HGB CONC 33 g/dL (31-37) RED CELL DISTRIBUTION WIDTH 17.4 H % (11.6-14.8) PLATELET COUNT 332 K/uL (150-400) NEUTROPHIL % 85.2 H % (50-75) LYMPH % 10.8 L % (25-40) MONO % 3.3 % (3-14) EOSINOPHIL % 0.7 % (0-4) BASOPHIL % 0 % (0-2) Urine Drug Screen: (TARYN: 09/22/2016 18:10) ( [facility] 09/22/2016 19:14) Final results Test Result Flag Units (Reference) AMPHETAMINE/METHAMPHETAMINE NEGATIVE (NEGATIVE) BARBITURATE NEGATIVE (NEGATIVE) BENZODIAZEPINE NEGATIVE (NEGATIVE) CANNABINOID POSITIVE H (NEGATIVE) COCAINE NEGATIVE (NEGATIVE) ECSTASY NEGATIVE (NEGATIVE) METHADONE NEGATIVE (NEGATIVE) OPIATE NEGATIVE (NEGATIVE) The urine drug screen is a qualitative screening test fordrug overdose and abuse. All screen results should beconsidered as presumptive.Drugs screened for are as follows:BenzodiazepinesCocaineAmphetamines/MetamphetaminesTHC (Tetrahydrocannabinol)OpiatesBarbituratesEcstasyMethadonePositive results are unconfirmed. For confirmation, notifythe lab for the specimen to be sent to the reference lab.All confirmations must be performed by a differentmethodology.The ingestion of natural herbal and plant productscontaining Ephedra/Ephedra metabolites can produce in urineone or more substances capable of cross reacting withamphetamine/methamphetamine immunoassays. These testsprovide a preliminary result only. A more specificalternative chemical method must be used to obtain aconfirmed analytical result. Lipase: (TARYN: 09/22/2016 18:10) ( [facility] Final results Test Result Flag Units (Reference) LIPASE 50 L U/L (73-393) AMYLASE 70 U/L (25-115) CMP: (TARYN: 09/22/2016 18:10) ( [facility] 18[facility]56[facility] Final results Test Result Flag Units (Reference) GLUCOSE 175 H mg/dL (70-110) BUN 5 L mg/dL (7-18) CREATININE 0.8 mg/dL (0.6-1.3) Estimated GFR >60 mL/min Estimated GFR- >60 mL/min Note: Persistent reduction over 3 months in eGFR<60 mL/min/1.73 m2 defines CKD. Patients with eGFR values>=60 mL/min/1.73 m2 may also have CKD if evidence ofpersistent proteinuria. Additional information may be foundat www.kidney.org. SODIUM 140 mmol/L (136-145) POTASSIUM 4.0 mmol/L (3.5-5.1) CHLORIDE 102 mmol/L (98-107) CARBON DIOXIDE 29 mmol/L (21-32) CALCIUM 9.1 mg/dL (8.5-10.1) TOTAL PROTEIN 8.4 H g/dL (6.4-8.2) ALBUMIN 3.9 g/dL (3.3-5.0) BILIRUBIN, TOTAL 0.3 mg/dL (0.0-1.0) ALKALINE PHOSPHATASE 62 U/L (46-116) AST (SGOT) 13 L U/L (15-37) ALT (SGPT) 16 U/L (12-78) . PROGRESS AND PROCEDURES Course of Care: pt asked x3 during initial hx and exam if she smoked 'pot, pt denied each time 1934. spoke to pt and spouse about tx options, pt aware labs were normal, maxed out on controlled substances per policy here, allergic to toradol, so couldn't give that, pt has all her anti-emetics, pain meds, bentyl and stuff at home 1949. pt telling nurse she would like to be admitted 20:23 09/22/16. Spoke to Dr Martino re pt's case, and mutually agreed pt's labs normal, vs normal, no vomiting here, pt only spitting and marijauna hx don't qualify for admit 2054. had discussion with pt re affects of marijuana and cyclic vomiting, encouraged to stop using pot, pt now telling me reason she denied marijuana use was because she thought I meant did she use any today, encouraged pt to f/u with pcp or gi, agreed to give one more dose of nausea med prior to dc. 09/22/2016 20:19 BP: 170/90. HR: 57. RR: 20. O2 saturation: 100%. Vital Signs: have been reviewed as normal and appear to be correct. Patient and family counseled in person regarding the patient's stable condition, test results and diagnosis. Differential Diagnosis: I considered gastritis, peptic ulcer disease, gastroesophageal reflux disease, gastroparesis, Crohn's disease, ulcerative colitis, small bowel obstruction, colonic obstruction, colon cancer, gastroenteritis, cholecystitis, pancreatitis, viral syndrome, enterocolitis, urinary tract infection, hepatitis, sepsis, drugs, hyperthyroidism, hyperparathyroidism, and psychogenic etiology as a possible cause of vomiting in this patient. This is a partial list of diagnoses considered. Above considerations are based on history, physical exam, reassessment and laboratory data. Differential diagnosis was discussed with patient and patient's spouse. Disposition: Discharged home in good and improved condition (21:03). Condition: good and stable. CLINICAL IMPRESSION Intractable vomiting with nausea (Cyclic Vomiting). No dehydration or volume depletion. Not bilious. 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 INSTRUCTIONS Take clear liquids only (frequent sips) for the next 24 hours until better. May continue medications with sips only. Advance diet as tolerated. Avoid. Warnings: CONTROLLED SUBSTANCE WARNINGS: The reason for controlled substance is related to an acute exacerbation of chronic pain. Reviewed the risks tolerance and dependence. Discussed warnings with the patient (stop marijuana use). GENERAL WARNINGS: Return or contact your physician immediately if your condition worsens or changes unexpectedly, if not improving as expected, or if other problems arise. SPECIFICALLY, return if you develop pain in the abdomen or pelvis, fever, the inability to keep fluids down, blood in vomitus, blood in diarrhea, fainting or lightheadedness. Follow-up: Follow up with your doctor in about two days as needed. Call for an appointment. Summary of care provided to patient. Understanding of the discharge instructions verbalized by patient. Follow-up with: Eyal Ahn MD, Gastroenterology, [address] [place] [address], [address] [place] [address] Ave[address] , [place], [id number]; Pj Cannon MD, Gastroenterology, [address] [place] [address], [address] [place] [address], [address], [place], [id number]; Brigette Galaviz MD, Gastroenteroloy, [address] [place] [address], [address] [place] [address] [address], [place], [id number]; Johnathan Stuart MD, Gastroenteroloy, [address] [place] [address], [address] [place] [address] [address], [place], [id number]; Iwona Brantley MD, Gastroenteroloy, [address] [place] [address], [address] [place] [address] [address], [place], [id number] Follow up in about two days as needed. Call for an appointment. Summary of care provided to patient. (Electronically signed by Clare Harding A.R.N.P. 09/22/2016 22:45)
--- NOTE | 2016-09-22 22:46 | ED MAR SUMMARY ---
..... Medication Administration Record [facility] [address] [place] [address] Patient: RIKY SCHMITT Visit ID: [id number] 40y, F Weight: 66.2 kg Height/Length: 65 in BMI: 24.3 ALLERGIES: ASA, Codeine, EES, Ibuprofen, PCN, Sulfa Antibiotics, Vicodin Start 18:23 09/22/2016 Jacky Ferrell R.N. Medication Administered: IV NS (SALINE), Dose: IV Fluids over 1 hour(s), Rate: 1000 mL/hr, Dispensed: 1000 mL bag, Site: #2 right AC. Medication Ordered: IV NS : initial bolus none -, then 1000 mL/hr for X1 (NOW). Given 18:33 09/22/2016 Jacky Ferrell R.N. Medication Administered: ZOFRAN [IVP] (ONDANSETRON HCL), Dose: 4 mg IVP, Site: #2 right AC. Medication Ordered: Zofran IV 4 mg (NOW). Given 21:16 09/22/2016 Ashley Ragland R.N. Medication Administered: REGLAN [IVP] (METOCLOPRAMIDE HCL), Dose: 10 mg IVP over 4 minute(s), Site: #2 right AC. Medication Ordered: Reglan IV 10 mg (NOW).
--- NOTE | 2016-09-22 22:46 | ED MED RECONCILIATION SUMMARY ---
Patient: RIKY SCHMITT Medication Reconciliation Report [facility] VisitID: [id number] [address] [place] [address] 40y, F Registration Date/Time: 09/22/2016 Weight: 66.2 kg Height/Length: 65 in. BMI: 24.3 ALLERGIES: ASA, Codeine, EES, Ibuprofen, PCN, Sulfa Antibiotics, Vicodin The patient's Home Medications are listed below: THE FOLLOWING MEDICATIONS NEED TO BE RECONCILED: Abilify 5 mg hs Albuterol Sulfate HFA Inhalation Omeprazole Phenergan Reglan Sertraline Zofran The source(s) of the original Home Medication information: patient The following Medications were given to the patient in the Emergency Department: IV NS IV Fluids bolus 0, then 1000 mL/hr, administered: 09/22/2016 6:23:00 PM Zofran [IVP] IVP 4 mg, administered: 09/22/2016 6:33:00 PM Reglan [IVP] IVP 10 mg, administered: 09/22/2016 9:16:00 PM The following Medications were prescribed to the patient: None.
--- NOTE | 2016-09-22 22:46 | ED MAR SUMMARY ---
..... Medication Administration Record [facility] [address] [place] [address] Patient: RIKY SCHMITT Visit ID: [id number] 40y, F Weight: 66.2 kg Height/Length: 65 in BMI: 24.3 ALLERGIES: ASA, Codeine, EES, Ibuprofen, PCN, Sulfa Antibiotics, Vicodin Start 18:23 09/22/2016 Jacky Ferrell R.N. Medication Administered: IV NS (SALINE), Dose: IV Fluids over 1 hour(s), Rate: 1000 mL/hr, Dispensed: 1000 mL bag, Site: #2 right AC. Medication Ordered: IV NS : initial bolus none -, then 1000 mL/hr for X1 (NOW). Given 18:33 09/22/2016 Jacky Ferrell R.N. Medication Administered: ZOFRAN [IVP] (ONDANSETRON HCL), Dose: 4 mg IVP, Site: #2 right AC. Medication Ordered: Zofran IV 4 mg (NOW). Given 21:16 09/22/2016 Ashley Ragland R.N. Medication Administered: REGLAN [IVP] (METOCLOPRAMIDE HCL), Dose: 10 mg IVP over 4 minute(s), Site: #2 right AC. Medication Ordered: Reglan IV 10 mg (NOW).
--- NOTE | 2016-09-22 22:46 | ED DISCHARGE INSTRUCTIONS ---
Patient: RIKY SCHMITT General Instructions [facility] VisitID: [id number] [place] [address] 40y, F Registration Date/Time: 09/22/2016 Intractable vomiting with nausea (Cyclic Vomiting). No dehydration or volume depletion. Not bilious. 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 INSTRUCTIONS Take clear liquids only (frequent sips) for the next 24 hours until better. May continue medications with sips only. Advance diet as tolerated. Avoid. Warnings: CONTROLLED SUBSTANCE WARNINGS: The reason for controlled substance is related to an acute exacerbation of chronic pain. Reviewed the risks tolerance and dependence. Discussed warnings with the patient (stop marijuana use). GENERAL WARNINGS: Return or contact your physician immediately if your condition worsens or changes unexpectedly, if not improving as expected, or if other problems arise. SPECIFICALLY, return if you develop pain in the abdomen or pelvis, fever, the inability to keep fluids down, blood in vomitus, blood in diarrhea, fainting or lightheadedness. Follow-up: Follow up with your doctor in about two days as needed. Call for an appointment. Summary of care provided to patient. Understanding of the discharge instructions verbalized by patient. Follow-up with: Eyal Ahn MD, Gastroenterology, [address] [place] [address], [address] [place] [address] Ave[address] , [place], [id number]; Pj Cannon MD, Gastroenterology, [address] [place] [address], [address] [place] [address], [address], [place], [id number]; Brigette Galaviz MD, Gastroenteroloy, [address] [place] [address], [address] [place] [address] [address], [place], [id number]; Johnathan Stuart MD, Gastroenteroloy, , [address] [place] [address] [address], [place], [id number]; Iwona Brantley MD, Gastroenteroloy, [address] [place] [address], [address] [place], [place] [address]e., [address], [place], [address] Follow up in about two days as needed. Call for an appointment. Summary of care provided to patient. ADDITIONAL INFORMATION Vomiting [6Yr-Adult] Vomiting is a common symptom that may be due to different causes. These include gastroenteritis ("stomach flu"), food poisoning and gastritis. There are other more serious causes of vomiting which may be hard to diagnose early in the illness. Therefore, it is important to watch for the warning signs listed below. The main danger from repeated vomiting is dehydration. This is due to excess loss of water and minerals from the body. When this occurs, body fluids must be replaced. Home Care: If symptoms are severe, rest at home for the next 24 hours. You may use acetaminophen (Tylenol) or ibuprofen (Motrin, Advil) to control fever, unless another medicine was prescribed. [NOTE : If you have chronic liver or kidney disease or ever had a stomach ulcer or GI bleeding, talk with your doctor before using these medicines.] (Aspirin should never be used in anyone under 18 years of age who is ill with a fever. It may cause severe liver damage.) Avoid tobacco and alcohol use, which may worsen your symptoms. If medicines for vomiting were prescribed, take as directed. Once vomiting stops, then follow these guidelines: During The First 12-24 Hours follow the diet below: FRUIT JUICES: Apple, grape juice, clear fruit drinks, and electrolyte replacement drinks. BEVERAGES: Soft drinks without caffeine; mineral water (plain or flavored), decaffeinated tea and coffee. SOUPS: Clear broth, consomm and bouillon DESSERTS: Plain gelatin, popsicles and fruit juice bars. As you feel better, you may add 6-8 ounces of yogurt per day. During The Next 24 Hours you may add the following to the above: Hot cereal, plain toast, bread, rolls, crackers Plain noodles, rice, mashed potatoes, chicken noodle or rice soup Unsweetened canned fruit (avoid pineapple), bananas Limit caffeine and chocolate. No spices or seasonings except salt. During The Next 24 Hours Gradually resume a normal diet, as you feel better and your symptoms lessen. Follow Up with your doctor as advised if you are not improving over the next 2-3 days. Get Prompt Medical Attention if any of the following occur: Constant right-sided lower abdominal pain or increasing general abdominal pain Continued vomiting (unable to keep liquids down) for 24 hours Frequent diarrhea (more than 5 times a day); blood (red or black color) or mucus in diarrhea Reduced urine output or extreme thirst Weakness, dizziness or fainting Unusually drowsy or confused Fever of 100.4F (38C) oral or higher, not better with fever medication Yellow color of the eyes or skin Marijuana Abuse Marijuana is the most widely used illegal drug in the [place]. It is called by various names such as pot, weed, blunts, grass, reefer, ganja, hash, hashish. It is usually smoked but can be mixed with foods or brewed as a tea. It is sometimes sold with PCP (Lionel Dust) or amphetamine mixed in it. These drugs can cause other harmful side effects. Marijuana can cause the following effects: Changes in mood (stimulated, happy, drowsy, depressed, paranoid) Hallucinations Increased heart rate and blood pressure Increased appetite Time distortion, difficulty concentrating, impaired memory Lung damage (similar to cigarettes with chronic cough, wheezing, frequent colds and bronchitis) You can become psychologically dependent on marijuana. That means the craving to use the drug is emotional or psychological rather than due to physical withdrawal. Is Marijuana Running Your Life? Here are some of the signs: Relying on marijuana to feel good, forget problems, deal with stress or to relax Wanting to be alone most of the time or only with others who use drugs Losing interest in things that used to be important Changes in school or job performance or attendance Spending a lot of time thinking about how to get marijuana Stealing or selling your things so you can buy marijuana Unable to stop using even though you may want to quit Increasing anxiety, anger,or depression Sleeping too much, changes in eating habits (weight loss or gain) Needing to use more to get the same effect Home Care Once you have become addicted to any drug, quitting is hard to do. Most people find they can't quit without help. So, dont try to do this alone. Talk to someone you trust who can support you. Seek professional help. Avoid people and places where drugs are used. That only increases the temptation to use. Follow Up with your doctor or as advised by our staff. For more information or a referral to a treatment center in your area, contact: Your local mental health center or the National Alcohol and Substance Abuse Information Center (266)-472-6820 www.addictioncareMOVL.com National [place] on Alcoholism and Drug Dependence 177-793-FUQK www.ncadd.org Marijuana Anonymous 397-060-0654 www.marijuana-anonymous.org Get Prompt Medical Attention if any of the following occur: You feel extreme depression, fear, anxiety, or anger toward yourself or others You feel out of control You feel that you may try to harm yourself or another Clear Liquid Diet Clear liquids are any liquid that you can see through as well as those that are very easy to digest. This is used while the body is recovering from irritation or infection of the stomach or intestinal tract. It may also be used before special procedures or surgery. This diet is to be used no more than three days. You may include the following items. Adults Adults should drink a total of 23 quarts of liquid per day. It may be easier to drink small frequent servings rather than a few large ones. Liquids can include: Fruit juices.Strained orange juice or lemonade (no pulp), apple, grape and cranberry juice, clear fruit drinks, sports drinks Beverages.Sport drinks, sodas, mineral water (plain or flavored), tea, black coffee, liquid gelatin (add twice the recommended amount of water) Soups.Clear broth, consomm, bouillon Desserts.Plain gelatin, popsicles, fruit juice bars Children Over 2 years old The following liquids are acceptable for children over age 2: Fruit juices.Strained orange juice or lemonade (no pulp), apple, grape and cranberry juice, clear fruit drinks Beverages. Sports drinks, sodas, mineral water (plain or flavored), tea, liquid gelatin (add twice the recommended amount of water) Soups. Clear broth, consomm, bouillon Desserts. Plain gelatin, popsicles, fruit juice bars Children under 2 years old Oral rehydration fluids such are available at drug stores and most grocery stores without a prescription. [place] Diet A bland diet is used for patients with an upset stomach. It consists of foods that are mild and easy to digest. It is better to eat small frequent meals rather than three large meals a day. BEVERAGES OK: Fruit juices, non-caffeinated teas and coffee, non-carbonated [place] AVOID: Carbonated beverage, caffeinated tea and coffee, all alcoholic beverages BREAD OK: Refined white, wheat or rye bread, ten or soda crackers, [place] toast, plain rolls, bagels AVOID: Whole-grain bread CEREAL OK: Refined cereals: cooked or ready to eat AVOID: Whole grain cereals and granola, or those containing bran, seeds or nuts DESSERTS OK: Peanut butter and all others except those to "avoid" AVOID: Chocolate, cocoa, coconut, popcorn, nuts, seeds, jam, marmalade FRUITS OK: Canned, cooked, frozen or fresh fruits without seeds or tough skin AVOID: Olives, skin and seeds of fruit MEATS OK: All fresh or preserved meat, fish and fowl AVOID: Any that are prepared with those spices to "avoid" CHEESE & EGGS OK: Eggs, cottage cheese, cream cheese, other cheeses AVOID: All cheeses made with those spices to "avoid" POTATOES & PASTA OK: Potato, rice, macaroni, noodles, spaghetti AVOID: None SOUPS OK: All soups without heavy seasoning AVOID: Soups made with those spices to "avoid" VEGETABLES OK: Canned, cooked, fresh or frozen mildly flavored vegetables without seeds, skins or coarse fiber AVOID: Vegetables prepared with those spices to "avoid"; skin and seeds of vegetables and those with coarse fiber SPICES OK: Salt, lemon and [place] juice, vinegar, all extracts, alethea, cinnamon, thyme, mace, allspice, paprika AVOID: [place] powder, cloves, pepper, seed spices, garlic, gravy pickles, highly seasoned salad dressings Clear Liquid Diet Clear liquids are any liquid that you can see through as well as those that are very easy to digest. This is used while the body is recovering from irritation or infection of the stomach or intestinal tract. It may also be used before special procedures or surgery. This diet is to be used no more than three days. You may include the following items. Adults Adults should drink a total of 23 quarts of liquid per day. It may be easier to drink small frequent servings rather than a few large ones. Liquids can include: Fruit juices.Strained orange juice or lemonade (no pulp), apple, grape and cranberry juice, clear fruit drinks, sports drinks Beverages.Sport drinks, sodas, mineral water (plain or flavored), tea, black coffee, liquid gelatin (add twice the recommended amount of water) Soups.Clear broth, consomm, bouillon Desserts.Plain gelatin, popsicles, fruit juice bars Children Over 2 years old The following liquids are acceptable for children over age 2: Fruit juices.Strained orange juice or lemonade (no pulp), apple, grape and cranberry juice, clear fruit drinks Beverages. Sports drinks, sodas, mineral water (plain or flavored), tea, liquid gelatin (add twice the recommended amount of water) Soups. Clear broth, consomm, bouillon Desserts. Plain gelatin, popsicles, fruit juice bars Children under 2 years old Oral rehydration fluids such are available at drug stores and most grocery stores without a prescription. You have been given the following additional information: Vomiting (6Y-Adult) Marijuana Abuse Diet, Clear Liquid Diet, [place] (Adult) Diet, Clear Liquid (Electronically signed by Clare Harding A.R.N.P. 09/22/2016 22:45)
--- NOTE | 2016-09-22 22:46 | ED DISCHARGE INSTRUCTIONS ---
Patient: RIKY SCHMITT General Instructions [facility] VisitID: [id number] [place] [address] 40y, F Registration Date/Time: 09/22/2016 Intractable vomiting with nausea (Cyclic Vomiting). No dehydration or volume depletion. Not bilious. 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 INSTRUCTIONS Take clear liquids only (frequent sips) for the next 24 hours until better. May continue medications with sips only. Advance diet as tolerated. Avoid. Warnings: CONTROLLED SUBSTANCE WARNINGS: The reason for controlled substance is related to an acute exacerbation of chronic pain. Reviewed the risks tolerance and dependence. Discussed warnings with the patient (stop marijuana use). GENERAL WARNINGS: Return or contact your physician immediately if your condition worsens or changes unexpectedly, if not improving as expected, or if other problems arise. SPECIFICALLY, return if you develop pain in the abdomen or pelvis, fever, the inability to keep fluids down, blood in vomitus, blood in diarrhea, fainting or lightheadedness. Follow-up: Follow up with your doctor in about two days as needed. Call for an appointment. Summary of care provided to patient. Understanding of the discharge instructions verbalized by patient. Follow-up with: Eyal Ahn MD, Gastroenterology, [address] [place] [address], [address] [place] [address] Ave[address] , [place], [id number]; Pj Cannon MD, Gastroenterology, [address] [place] [address], [address] [place] [address], [address], [place], [id number]; Brigette Galaivz MD, Gastroenteroloy, [address] [place] [address], [address] [place] [address] [address], [place], [id number]; Johnathan Stuart MD, Gastroenteroloy, , [address] [place] [address] [address], [place], [id number]; Iwona Brantley MD, Gastroenteroloy, [address] [place] [address], [address] [place], [place] [address]e., [address], [place], [id number] Follow up in about two days as needed. Call for an appointment. Summary of care provided to patient. ADDITIONAL INFORMATION Vomiting [6Yr-Adult] Vomiting is a common symptom that may be due to different causes. These include gastroenteritis ("stomach flu"), food poisoning and gastritis. There are other more serious causes of vomiting which may be hard to diagnose early in the illness. Therefore, it is important to watch for the warning signs listed below. The main danger from repeated vomiting is dehydration. This is due to excess loss of water and minerals from the body. When this occurs, body fluids must be replaced. Home Care: If symptoms are severe, rest at home for the next 24 hours. You may use acetaminophen (Tylenol) or ibuprofen (Motrin, Advil) to control fever, unless another medicine was prescribed. [NOTE : If you have chronic liver or kidney disease or ever had a stomach ulcer or GI bleeding, talk with your doctor before using these medicines.] (Aspirin should never be used in anyone under 18 years of age who is ill with a fever. It may cause severe liver damage.) Avoid tobacco and alcohol use, which may worsen your symptoms. If medicines for vomiting were prescribed, take as directed. Once vomiting stops, then follow these guidelines: During The First 12-24 Hours follow the diet below: FRUIT JUICES: Apple, grape juice, clear fruit drinks, and electrolyte replacement drinks. BEVERAGES: Soft drinks without caffeine; mineral water (plain or flavored), decaffeinated tea and coffee. SOUPS: Clear broth, consomm and bouillon DESSERTS: Plain gelatin, popsicles and fruit juice bars. As you feel better, you may add 6-8 ounces of yogurt per day. During The Next 24 Hours you may add the following to the above: Hot cereal, plain toast, bread, rolls, crackers Plain noodles, rice, mashed potatoes, chicken noodle or rice soup Unsweetened canned fruit (avoid pineapple), bananas Limit caffeine and chocolate. No spices or seasonings except salt. During The Next 24 Hours Gradually resume a normal diet, as you feel better and your symptoms lessen. Follow Up with your doctor as advised if you are not improving over the next 2-3 days. Get Prompt Medical Attention if any of the following occur: Constant right-sided lower abdominal pain or increasing general abdominal pain Continued vomiting (unable to keep liquids down) for 24 hours Frequent diarrhea (more than 5 times a day); blood (red or black color) or mucus in diarrhea Reduced urine output or extreme thirst Weakness, dizziness or fainting Unusually drowsy or confused Fever of 100.4F (38C) oral or higher, not better with fever medication Yellow color of the eyes or skin Marijuana Abuse Marijuana is the most widely used illegal drug in the [place]. It is called by various names such as pot, weed, blunts, grass, reefer, ganja, hash, hashish. It is usually smoked but can be mixed with foods or brewed as a tea. It is sometimes sold with PCP (Lionel Dust) or amphetamine mixed in it. These drugs can cause other harmful side effects. Marijuana can cause the following effects: Changes in mood (stimulated, happy, drowsy, depressed, paranoid) Hallucinations Increased heart rate and blood pressure Increased appetite Time distortion, difficulty concentrating, impaired memory Lung damage (similar to cigarettes with chronic cough, wheezing, frequent colds and bronchitis) You can become psychologically dependent on marijuana. That means the craving to use the drug is emotional or psychological rather than due to physical withdrawal. Is Marijuana Running Your Life? Here are some of the signs: Relying on marijuana to feel good, forget problems, deal with stress or to relax Wanting to be alone most of the time or only with others who use drugs Losing interest in things that used to be important Changes in school or job performance or attendance Spending a lot of time thinking about how to get marijuana Stealing or selling your things so you can buy marijuana Unable to stop using even though you may want to quit Increasing anxiety, anger,or depression Sleeping too much, changes in eating habits (weight loss or gain) Needing to use more to get the same effect Home Care Once you have become addicted to any drug, quitting is hard to do. Most people find they can't quit without help. So, dont try to do this alone. Talk to someone you trust who can support you. Seek professional help. Avoid people and places where drugs are used. That only increases the temptation to use. Follow Up with your doctor or as advised by our staff. For more information or a referral to a treatment center in your area, contact: Your local mental health center or the National Alcohol and Substance Abuse Information Center (197)-406-7842 www.addictioncareAction [employer].com National [place] on Alcoholism and Drug Dependence 373-885-FPNE www.ncadd.org Marijuana Anonymous 388-030-5249 www.marijuana-anonymous.org Get Prompt Medical Attention if any of the following occur: You feel extreme depression, fear, anxiety, or anger toward yourself or others You feel out of control You feel that you may try to harm yourself or another Clear Liquid Diet Clear liquids are any liquid that you can see through as well as those that are very easy to digest. This is used while the body is recovering from irritation or infection of the stomach or intestinal tract. It may also be used before special procedures or surgery. This diet is to be used no more than three days. You may include the following items. Adults Adults should drink a total of 23 quarts of liquid per day. It may be easier to drink small frequent servings rather than a few large ones. Liquids can include: Fruit juices.Strained orange juice or lemonade (no pulp), apple, grape and cranberry juice, clear fruit drinks, sports drinks Beverages.Sport drinks, sodas, mineral water (plain or flavored), tea, black coffee, liquid gelatin (add twice the recommended amount of water) Soups.Clear broth, consomm, bouillon Desserts.Plain gelatin, popsicles, fruit juice bars Children Over 2 years old The following liquids are acceptable for children over age 2: Fruit juices.Strained orange juice or lemonade (no pulp), apple, grape and cranberry juice, clear fruit drinks Beverages. Sports drinks, sodas, mineral water (plain or flavored), tea, liquid gelatin (add twice the recommended amount of water) Soups. Clear broth, consomm, bouillon Desserts. Plain gelatin, popsicles, fruit juice bars Children under 2 years old Oral rehydration fluids such are available at drug stores and most grocery stores without a prescription. Preston Diet A bland diet is used for patients with an upset stomach. It consists of foods that are mild and easy to digest. It is better to eat small frequent meals rather than three large meals a day. BEVERAGES OK: Fruit juices, non-caffeinated teas and coffee, non-carbonated davidson AVOID: Carbonated beverage, caffeinated tea and coffee, all alcoholic beverages BREAD OK: Refined white, wheat or rye bread, ten or soda crackers, [place] toast, plain rolls, bagels AVOID: Whole-grain bread CEREAL OK: Refined cereals: cooked or ready to eat AVOID: Whole grain cereals and granola, or those containing bran, seeds or nuts DESSERTS OK: Peanut butter and all others except those to "avoid" AVOID: Chocolate, cocoa, coconut, popcorn, nuts, seeds, jam, marmalade FRUITS OK: Canned, cooked, frozen or fresh fruits without seeds or tough skin AVOID: Olives, skin and seeds of fruit MEATS OK: All fresh or preserved meat, fish and fowl AVOID: Any that are prepared with those spices to "avoid" CHEESE & EGGS OK: Eggs, cottage cheese, cream cheese, other cheeses AVOID: All cheeses made with those spices to "avoid" POTATOES & PASTA OK: Potato, rice, macaroni, noodles, spaghetti AVOID: None SOUPS OK: All soups without heavy seasoning AVOID: Soups made with those spices to "avoid" VEGETABLES OK: Canned, cooked, fresh or frozen mildly flavored vegetables without seeds, skins or coarse fiber AVOID: Vegetables prepared with those spices to "avoid"; skin and seeds of vegetables and those with coarse fiber SPICES OK: Salt, lemon and eastern che[place] juice, vinegar, all extracts, alethea, cinnamon, thyme, mace, allspice, paprika AVOID: Franklin powder, cloves, pepper, seed spices, garlic, gravy pickles, highly seasoned salad dressings Clear Liquid Diet Clear liquids are any liquid that you can see through as well as those that are very easy to digest. This is used while the body is recovering from irritation or infection of the stomach or intestinal tract. It may also be used before special procedures or surgery. This diet is to be used no more than three days. You may include the following items. Adults Adults should drink a total of 23 quarts of liquid per day. It may be easier to drink small frequent servings rather than a few large ones. Liquids can include: Fruit juices.Strained orange juice or lemonade (no pulp), apple, grape and cranberry juice, clear fruit drinks, sports drinks Beverages.Sport drinks, sodas, mineral water (plain or flavored), tea, black coffee, liquid gelatin (add twice the recommended amount of water) Soups.Clear broth, consomm, bouillon Desserts.Plain gelatin, popsicles, fruit juice bars Children Over 2 years old The following liquids are acceptable for children over age 2: Fruit juices.Strained orange juice or lemonade (no pulp), apple, grape and cranberry juice, clear fruit drinks Beverages. Sports drinks, sodas, mineral water (plain or flavored), tea, liquid gelatin (add twice the recommended amount of water) Soups. Clear broth, consomm, bouillon Desserts. Plain gelatin, popsicles, fruit juice bars Children under 2 years old Oral rehydration fluids such are available at drug stores and most grocery stores without a prescription. You have been given the following additional information: Vomiting (6Y-Adult) Marijuana Abuse Diet, Clear Liquid Diet, Preston (Adult) Diet, Clear Liquid (Electronically signed by Clare Harding A.R.N.P. 09/22/2016 22:45)
--- NOTE | 2016-09-22 22:46 | ED MED RECONCILIATION SUMMARY ---
Patient: RIKY SCHMITT Medication Reconciliation Report [facility] VisitID: [id number] [address] [place] [address] 40y, F Registration Date/Time: 09/22/2016 Weight: 66.2 kg Height/Length: 65 in. BMI: 24.3 ALLERGIES: ASA, Codeine, EES, Ibuprofen, PCN, Sulfa Antibiotics, Vicodin The patient's Home Medications are listed below: THE FOLLOWING MEDICATIONS NEED TO BE RECONCILED: Abilify 5 mg hs Albuterol Sulfate HFA Inhalation Omeprazole Phenergan Reglan Sertraline Zofran The source(s) of the original Home Medication information: patient The following Medications were given to the patient in the Emergency Department: IV NS IV Fluids bolus 0, then 1000 mL/hr, administered: 09/22/2016 6:23:00 PM Zofran [IVP] IVP 4 mg, administered: 09/22/2016 6:33:00 PM Reglan [IVP] IVP 10 mg, administered: 09/22/2016 9:16:00 PM The following Medications were prescribed to the patient: None.
== END 2016-09-22 21:23 | disposition home or self-care (01) ==
LOC: ED SRH 17:14
DX: G43.A1 Cyclical vomiting, in migraine, intractable (principal); R11.0 Nausea; F12.129 Cannabis abuse with intoxication, unspecified; F41.9 Anxiety disorder, unspecified; E11.9 Type 2 diabetes mellitus without complications; I10 Essential (primary) hypertension; Z79.899 Other long term (current) drug therapy; F17.210 Nicotine dependence, cigarettes, uncomplicated; Z88.0 Allergy status to penicillin; Z88.5 Allergy status to narcotic agent
CPT/HCPCS: 90004; 90100; 90469; 92235; 92530; 92760; 92761; 92762; 92763; 92764; 92765; 92766; 92767; 93070; 95059; 95150